=== PATIENT | female | born 1945 | race Caucasian/White ===

== ENCOUNTER 2017-05-23 14:07 | Outpatient (CLI) | payer MEDICARE | END 2017-05-23 14:08 | disposition home or self-care (01) | LOC: BICMAMMO 14:07 | PROVIDERS: ATTEND Internal Medicine Hematology & Oncology | DX: Z12.31 Encounter for screening mammogram for malignant neoplasm of breast (principal); M81.0 Age-related osteoporosis without current pathological fracture; D50.9 Iron deficiency anemia, unspecified; N63.20 Unspecified lump in the left breast, unspecified quadrant; M85.80 Other specified disorders of bone density and structure, unspecified site; Z85.3 Personal history of malignant neoplasm of breast | CPT/HCPCS: 71046; 77063; 77067; 77080 ==

== ENCOUNTER 2017-09-08 19:58 | Emergency (ER) | payer MEDICARE ==
[2017-09-08 20:35] LABS: #Basophils 0.1 thou/uL (0.0-0.2); #Eosinphils 0.1 thou/uL (0.0-0.7); #Lymphocytes 1.9 thou/uL (1.20-3.40); #Monocytes 0.5 thou/uL (0.11-0.59); #Neutrophils 3.3 thou/uL (1.40-6.50); %Basophils 1.1 % (0.0-1.0); %Eosinophils 1.7 % (0.0-10.0); %Lymphocytes 32.2 % (21.0-51.0); %Monocytes 8.4 % (0.0-10.0); %Neutrophils 56.8 % (42.0-75.0); Hemoglobin 12.3 g/dL (12.0-16.0); Mean Corpuscular HGB CONC 33.8 g/dL (32.0-36.0); Mean Corpuscular Hemoglobin 31.4 pg (27.0-31.0); Mean Platelet Volume 6.9 fL (7.4-10.4); Platelet Count 212 thou/uL (130-400); Red Blood Cell (RBC) Count 3.91 mill/uL (4.20-5.40); White Blood Cell (WBC) Count 5.9 thou/uL (4.8-10.8)
[2017-09-08 20:55] LABS: ALT (SGPT) 10 U/L (8-55); AST (SGOT) 21 U/L (5-34); Albumin 3.8 g/dL (3.4-4.8); Alkaline Phosphatase 60 U/L (40-150); Anion Gap 14 mmol/L (10-20); BUN (Urea Nitrogen) 19 mg/dL (9.8-20.1); Bilirubin, Total 0.3 mg/dL (0.2-1.2); Calc. Creatinine Clearance 0 mL/min (70-130); Calcium 8.9 mg/dL (7.8-10.44); Carbon Dioxide 26 mmol/L (23-31); Chloride 103 mmol/L (98-107); Estimated GFR-MDRD 62; Globulin 2.7 g/dL (2.4-3.5); Glucose 110 mg/dL (83-110); Protein, Total 6.5 g/dL (6.0-8.3); Sodium 139 mmol/L (136-145)
[2017-09-08 21:00] LABS: CKMB 1.1 ng/mL (0-6.6); Troponin I Less than 0.010 ng/mL (< 0.028)
== END 2017-09-08 22:32 | disposition home or self-care (01) ==
LOC: ERS 19:58
DX: R00.0 Tachycardia, unspecified (principal); D64.9 Anemia, unspecified; I50.9 Heart failure, unspecified; I25.2 Old myocardial infarction; Z85.3 Personal history of malignant neoplasm of breast; Z86.73 Personal history of transient ischemic attack (TIA), and cerebral infarction without residual deficits; Z79.899 Other long term (current) drug therapy; Z79.82 Long term (current) use of aspirin
CPT/HCPCS: 36415; 80053; 82553; 84484; 85025; 93005

== ENCOUNTER 2018-04-13 22:15 | Inpatient (IN) | payer MEDICARE ==
[2018-04-13 22:57] LABS: #Basophils 0.1 thou/uL (0.0-0.2); #Eosinphils 0.2 thou/uL (0.0-0.7); #Lymphocytes 1.6 thou/uL (1.20-3.40); #Monocytes 0.5 thou/uL (0.11-0.59); #Neutrophils 3.3 thou/uL (1.40-6.50); %Basophils 1.3 % (0.0-1.0); %Eosinophils 3.4 % (0.0-10.0); %Lymphocytes 28.7 % (21.0-51.0); %Neutrophils 57.6 % (42.0-75.0); Hemoglobin 12.1 g/dL (12.0-16.0); Mean Corpuscular HGB CONC 33.5 g/dL (32.0-36.0); Mean Corpuscular Hemoglobin 31.3 pg (27.0-31.0); Mean Corpuscular Volume 93.5 fL (78.0-98.0); Mean Platelet Volume 7.3 fL (7.4-10.4); Platelet Count 247 thou/uL (130-400); RBC Distribution Width 12.1 % (11.5-14.5); Red Blood Cell (RBC) Count 3.85 mill/uL (4.20-5.40); White Blood Cell (WBC) Count 5.6 thou/uL (4.8-10.8)
[2018-04-13 23:20] LABS: ALT (SGPT) 23 U/L (8-55); AST (SGOT) 39 U/L (5-34); Albumin 3.6 g/dL (3.4-4.8); Alkaline Phosphatase 64 U/L (40-150); Anion Gap 15 mmol/L (10-20); BUN (Urea Nitrogen) 12 mg/dL (9.8-20.1); Bilirubin, Total 0.3 mg/dL (0.2-1.2); Calc. Creatinine Clearance 0 mL/min (70-130); Calcium 8.9 mg/dL (7.8-10.44); Carbon Dioxide 25 mmol/L (23-31); Chloride 103 mmol/L (98-107); Estimated GFR-MDRD 65; Globulin 2.7 g/dL (2.4-3.5); Glucose 144 mg/dL (83-110); Potassium 4.3 mmol/L (3.5-5.1); Protein, Total 6.3 g/dL (6.0-8.3); Sodium 139 mmol/L (136-145)
--- NOTE | 2018-04-13 23:29 | RAD ---
CHEST ONE VIEW PORTABLE 04/13/18 HISTORY: 72-year-old female with history of chest pain. COMPARISON: 05/23/17. FINDINGS: Surgical clips in the right axilla region. Heart size is within normal limits. The lungs are clear. M ild biapical pleural thickening. Mild hyperinflation. IMPRESSION: No acute intrathoracic disease. Mild hyperinflation and biapical pleural thickening. No acute process . POS: [facility]
[2018-04-14 02:27] LABS: Troponin I Less than 0.010 ng/mL (< 0.028)
[2018-04-14] MEDS ORDERED: Nitroglycerin 0.4 MG TAB (25 Tab Bottle) PO PRN (03:13)
[2018-04-14] MEDS ORDERED: Acetaminophen 325 MG TAB PO PRN (03:13)
[2018-04-14] MEDS ORDERED: Zolpidem Tartrate 5 MG TAB PO PRN (03:13)
[2018-04-14 04:43] LABS: #Basophils 0.1 thou/uL (0.0-0.2); #Eosinphils 0.2 thou/uL (0.0-0.7); #Lymphocytes 1.3 thou/uL (1.20-3.40); #Monocytes 0.4 thou/uL (0.11-0.59); #Neutrophils 2.3 thou/uL (1.40-6.50); %Basophils 1.5 % (0.0-1.0); %Eosinophils 3.7 % (0.0-10.0); %Lymphocytes 30.4 % (21.0-51.0); %Neutrophils 54.3 % (42.0-75.0); Mean Corpuscular HGB CONC 33.9 g/dL (32.0-36.0); Mean Corpuscular Hemoglobin 31.5 pg (27.0-31.0); Mean Corpuscular Volume 92.9 fL (78.0-98.0); Mean Platelet Volume 7.4 fL (7.4-10.4); Platelet Count 218 thou/uL (130-400); RBC Distribution Width 11.9 % (11.5-14.5); White Blood Cell (WBC) Count 4.2 thou/uL (4.8-10.8)
[2018-04-14 05:05] LABS: Troponin I 0.015 ng/mL (< 0.028)
[2018-04-14 05:09] LABS: Anion Gap 11 mmol/L (10-20); BUN (Urea Nitrogen) 11 mg/dL (9.8-20.1); Calc. Creatinine Clearance 0 mL/min (70-130); Calcium 8.6 mg/dL (7.8-10.44); Carbon Dioxide 28 mmol/L (23-31); Cardiac Risk 3.3 (Less than 4.5); Chloride 104 mmol/L (98-107); Cholesterol 179 mg/dl (< 200 Desired); Estimated GFR-MDRD 76; Glucose 96 mg/dL (83-110); HDL Cholesterol 54 mg/dL (>60 Neg Risk); LDL Cholesterol, Calculated 113 mg/dL; Potassium 3.6 mmol/L (3.5-5.1); Sodium 139 mmol/L (136-145); Triglycerides 61 mg/dL (Less than 150)
[2018-04-14] MEDS ORDERED: Enoxaparin Sodium 40 MG/0.4 ML SYRINGE ONE (07:55)
[2018-04-14] MEDS ORDERED: Famotidine 20 MG TAB ONE (07:55)
[2018-04-14] MEDS ORDERED: Aspirin Chewable 81 MG TAB ONE (07:55)
[2018-04-14] MEDS ORDERED: Nitroglycerin 2% Ointment 1 INCH/1 GM Packet ONE (07:55)
--- NOTE | 2018-04-14 09:03 | CT ---
PRELIMINARY REPORT/[facility]/EMERGENTY AFTER-HOURS PROCEDURE CT Head Without Contrast EXAM DATE/TIME: 04/14/2018 12:10 AM CLINICAL HISTORY: 72 years old, female; Signs and symptoms; Dizziness; Patient HX: Er 21; F72 with HX of multiple mis w ith the last one in 2017 and cvax2 presents to ed via ems with C/O acute onset chest pressure at 18:1 5 while sitting down associated with dizziness and loss of balance. PT notes that she got in the shower and began to feel lightheaded which PT states has been constant here in ed. PT also reports in termittent blurry vision which has since resolved. TECHNIQUE: Axial computed tomography images of the head/brain without contrast. COMPARISON: No relevant prior studies available. FINDINGS: Brain: Volume loss and chronic small vessel ischemic change. No brain edema. No intracranial hemorrha ge. Ventricles: Normal. No ventriculomegaly. Bones/joints: Normal. No acute fracture. Sinuses: Normal as visualized. No acute sinusitis. Mastoid air cells: Normal as visualized. No mastoid effusion. Soft tissues: Normal. IMPRESSION: No acute brain findings. Thank you for allowing us to participate in the care of your patient. Dictated and Authenticated by: Luc Emery MD 04/14/2018 12:17 AM Central Time ([place] & [place]) FINAL REPORT HEAD CT WITHOUT CONTRAST: DATE: 04/14/2018. COMPARISON: 01/21/2016. HISTORY: Lightheaded, blurred vision. FINDINGS: I agree with the preliminary [facility] report dictated by Dr. Luc Emery. The imaged paranasal sinu ses and mastoid air cells appear well aerated. There is atherosclerotic calcification of the [place] carotid arteries. There is no displaced calvarial fracture. There is periventricular and deep wh ite matter hypodensity, evidence of small-vessel disease. No intracranial hemorrhage, midline shift, or mass effect. IMPRESSION: Chronic findings as detailed above. POS: [facility]
[2018-04-14] MEDS: Carvedilol 25 MG TAB PO SCH ×2 (09:24→21:03)
[2018-04-14] MEDS: Aspirin Chewable 81 MG TAB PO SCH (09:24)
[2018-04-14] MEDS: Famotidine 20 MG TAB PO SCH ×2 (09:25→20:59)
[2018-04-14] MEDS: Enoxaparin Sodium 40 MG/0.4 ML SYRINGE SC SCH (09:26)
[2018-04-14] MEDS: Nitroglycerin 2% Ointment 1 INCH/1 GM Packet TOP SCH ×3 (09:26→21:06)
[2018-04-14] MEDS: Furosemide 20 MG TAB PO SCH (09:26)
[2018-04-14] MEDS: Famotidine/PF 20 mg/2ml Vial SLOW IVP SCH ×2 (14:30→21:04)
[2018-04-14] MEDS: Sodium Chloride 0.9% 1,000 ML IV SCH ×2 (14:31→23:17)
--- NOTE | 2018-04-14 17:56 | PDOC.PN ---
- Subjective Encounter Start Date: 04/14/18 Encounter Start Time: 17:53 Patient lying in bed with granddaughter at bedside. She denies chest pain, but reports some mild shortness of breath with activity. Reports a syncopal episode at home. CT showing chronic changes. Cardiology following, await echo. - Objective Resuscitation Status - Order Detail: 04/14/18 03:13 Resuscitation Status Routine Resuscitation Status: FULL: Full Resuscitation MAR Reviewed: Yes Vital Signs & Weight: Vital Signs (12 hours) Temp Pulse Resp BP Pulse Ox 04/14/18 14:10 97.9 F 73 16 138/63 100 Weight Weight 122 lb 1.6 oz Result Diagrams: 04/14/18 04:26 04/14/18 04:26 Radiology Reviewed by me: Yes Phys Exam - Physical Examination Constitutional: NAD HEENT: PERRLA, moist MMs, oral pharynx no lesions Neck: no nodes, no JVD, supple Respiratory: no wheezing, no rales, no rhonchi, clear to auscultation bilateral Cardiovascular: RRR, no rub Gastrointestinal: soft, non-tender, positive bowel sounds Musculoskeletal: no edema, pulses present Neurological: non-focal, normal sensation, moves all 4 limbs Lymphatic: no nodes Psychiatric: normal affect, A&O x 3 Skin: no rash, normal turgor, cap refill <2 seconds Dx/Plan (1) Heart palpitations Code(s): R00.2 - PALPITATIONS Status: Acute (2) Dizziness Code(s): R42 - DIZZINESS AND GIDDINESS Status: Acute (3) CAD (coronary artery disease) Code(s): I25.10 - ATHSCL HEART DISEASE OF [place] CORONARY ARTERY W/O ANG PCTRS Status: Chronic Comment: stable, followed by Dr. Ashton (4) CHF (congestive heart failure) Code(s): I50.9 - HEART FAILURE, UNSPECIFIED Status: Chronic Comment: stable , followed by Dr. Ashton - Plan cont current plan of care, plan discussed w/ family, DVT proph w/heparin * Cardiology consulted * Await echo * Continue current medical management * Monitor vitals and labs closely * Further medical management pending cardiology recommendations
[2018-04-14] MEDS: Lisinopril 10 MG TAB PO SCH (20:59)
--- NOTE | 2018-04-14 23:08 | HP ---
CHIEF COMPLAINT: Chest pain. HISTORY OF PRESENT ILLNESS: This is a 72-year-old female with past medical history of multiple MIs in the past, last one in 2017; CVA x2; stage IV breast cancer, status post 18 rounds of chemo with the last chemo causing the patient to go into MT. Per patient, around 6:30 p.m. she felt her heart racing, she felt some chest pressure, and she got up to go to the bathroom, felt very lightheaded and the patient felt her balance being off on the way to bathroom. The patient stated that she felt very uncomfortable and at the time, the patient checked her blood pressure which shows systolic of 180 that really made the patient worried and this prompted the patient to come to the ED to be further evaluated and treated. She lives alone in an RV which belongs to the son. The patient stated that she has been through a lot in that her daughter , daughter had diabetes mellitus type 1, and she has not been able to fully get over it because she really loved her so much. The patient stated that she has a lot of stress and there is a lot that has gone on with her and she feels like she is just breaking down. The patient stated that she has stage IV breast cancer, which she was given only three months to live; however, she has been fighting and she is still alive. The patient stated that she was seen at [facility] for chemotherapy and eventually she went to [place], and Dr. Cordoba is the doctor who actually continued the chemo from there. The patient states that her hims clerk is Dr. Ashton, who knows her very well. At this point, the patient endorses having intermittent blurry vision, dizziness, chest pain, lower extremity weakness. Otherwise, the patient denies any fever, nausea, vomiting, abdominal pain, dysuria, hematuria, hematochezia, melena, or cough. REVIEW OF SYSTEMS: Positive for blurry vision, weakness, chest pain, dizziness, otherwise as documented in the HPI. All systems have been reviewed and are negative. PAST MEDICAL HISTORY: Stage IV breast cancer, anemia, CHF, MT x1, stroke x3. FAMILY HISTORY: Reviewed and noncontributory to this visit at this time. PAST SURGICAL HISTORY: Right mastectomy, right cataract surgery, MediPort, appendectomy, hysterectomy, tonsillectomy. PSYCHIATRIC HISTORY: No previous psych history. SOCIAL HISTORY: The patient denies alcohol use, denies any illicit drug use or any smoking history. ALLERGIES: THE PATIENT IS ALLERGIC TO ADHESIVES, DEMEROL, ERYTHROMYCIN, IODINE, NICOTINE, PERCODAN, SULFA, VANCOMYCIN, AND DYES. CURRENT MEDICATIONS: The patient takes: 1. Coreg 37.5 b.i.d. 2. Lasix 20 daily. 3. Lisinopril 10 mg daily. 4. Baby aspirin 81 mg daily. PHYSICAL EXAMINATION: VITAL SIGNS: The patient's blood pressure is 137/60, pulse of 93, respiratory rate of 18, temperature is 98.1, oxygen saturation of 100. GENERAL: The patient is a talkative, sitting in bed, not in apparent distress. HEENT: Normocephalic and atraumatic. Pupils are equally round and reactive to light. Extraocular movements are intact. No scleral icterus. Mucous membranes are moist. NECK: Trachea is midline. Full range of motion. No JVD. LUNGS: Clear to auscultation bilaterally. No wheezing, no rales, no rhonchi appreciated. CARDIAC: Positive S1 and S2. Regular rate and rhythm. No murmurs, no gallops, no rubs appreciated. ABDOMEN: Soft, nontender, and nondistended. No palpable masses appreciated. No peritoneal signs. EXTREMITIES: 5/5 upper extremity strength. Good pulses bilaterally in the upper extremity. Lower extremity, no edema noted. 5/5 lower extremity strength. NEURO: Cranial nerves 2 through 12 grossly intact. No neurologic deficits noted. SKIN: Warm, dry, and intact. PSYCH: Normal affect, alert and oriented x3. DIAGNOSTIC STUDIES: EKG shows normal sinus rhythm with a rate of 89, premature atrial complexes appreciated. There is aberrant conduction noted. CT of the head shows paranasal sinuses and mastoid air cells which appear well aerated. There is atherosclerotic calcification of the cavernous carotid arteries. There is no displaced calvarial fracture. There is a preventricular and deep white matter hypodensities. Evidence of small-vessel disease. No intracranial hemorrhage, midline shift, or mass effect. Chest x-ray showed no acute intrathoracic disease. LABORATORY DATA: WBC is 5.6, hemoglobin is 12.1, hematocrit is 36.0, MCV is 93.5, and platelet count is 247. Sodium is 139, potassium is 4.3, chloride is 103, carbon dioxide of 25, anion gap of 15, BUN is 12, creatinine is 0.85, glucose is 144. AST is 39, and ALT is 23. Troponin is 0.016 x3 negative. ASSESSMENT AND PLAN: This is a 72-year-old female, being admitted for: 1. Chest pain, rule out acute coronary syndrome. At this point, we have trended troponins which has been negative x3. The patient states that her hims clerk is Dr. Ashton. At this point, we are going to consult Cardiology. Hopefully, we can get Dr. Ashton to see the patient and to further examine the patient. We will continue to monitor the patient closely at this time, we will continue the patient on home medications. 2. History of breast cancer. At this point, stable. We will continue to monitor the patient. 3. History of anemia. At this time, stable. We will continue to monitor the patient. 4. Congestive heart failure, currently not in any acute exacerbation. We will monitor the patient. We will continue the patient on home medications. 5. Coronary artery disease. We will continue the patient on home medications. 6. History of stroke. At this point, stable. We will continue to monitor the patient and treat the patient on her home medications. 7. Deep venous thrombosis and gastrointestinal prophylaxis addressed. Job ID: [id number]
[2018-04-15] MEDS: Nitroglycerin 2% Ointment 1 INCH/1 GM Packet TOP SCH ×3 (05:23→20:11)
[2018-04-15] MEDS: Enoxaparin Sodium 40 MG/0.4 ML SYRINGE SC SCH ×2 (09:18→09:54)
[2018-04-15] MEDS: Furosemide 20 MG TAB PO SCH (09:18)
[2018-04-15] MEDS: Aspirin Chewable 81 MG TAB PO SCH (09:18)
[2018-04-15] MEDS: Famotidine 20 MG TAB PO SCH ×2 (09:18→20:31)
[2018-04-15] MEDS: Famotidine/PF 20 mg/2ml Vial SLOW IVP SCH ×2 (09:19→20:30)
[2018-04-15] MEDS: Carvedilol 25 MG TAB PO SCH ×2 (09:27→20:29)
[2018-04-15] MEDS: diphenhydrAMINE 50 MG CAP PO SCH ×2 (12:24→17:40)
[2018-04-15] MEDS: predniSONE 20 MG TAB PO SCH ×2 (12:24→17:40)
[2018-04-15] MEDS ORDERED: Communication Order-Pharmacy FS SCH (13:00)
--- NOTE | 2018-04-15 13:41 | CON ---
DATE OF CONSULTATION: HISTORY OF PRESENT ILLNESS: Angie Shaffer is a 72-year-old white female admitted with chest discomfort. She has a very complicated long history having had breast cancer diagnosed in 2003, followed by mastectomy in April 2004 and prolonged chemotherapy. She also states that she had chest pain during a chemotherapy infusion. She states that she had a "heart attack". However, it seems that if she never has undergone cardiac catheterization. Adriamycin was part of the treatment. Since then, she has had mild left ventricular dysfunction on echocardiograms. She has had negative chemical stress test in the past. In 2006, she had a right- sided stroke. She follows up with Dr. Ashton regularly. Last ejection fraction was 40% to 45% in September 2017. She was last seen by Dr. Ashton in January 2018 and she continued complaining of exertional dyspnea after walking approximately 2 blocks , which she has for the last 3 or 4 years. She also has been documented to have nonsustained ventricular tachycardia in the past. She then had an episode on the evening of April 13. At 6:30 p.m., she was going to take a shower and began to notice that she was feeling weak. She then became so weak that she states she fell to the ground, but apparently did not lose consciousness. She felt her heart beating forcefully and rapidly at that time. She took her blood pressure, it was 180/120 with a pulse in the 120s. She called the EMS. She also had chest pressure with this, but cannot tell me if the chest pressure started prior to noticing the rapid heartbeat. She then was given aspirin and sublingual nitroglycerin by Paramedics, and her symptoms improved. From looking through the emergency room record, it does not appear that she had any significant arrhythmias when the paramedics arrived. Cardiac enzymes have been unremarkable. PAST MEDICAL HISTORY: Stage IV breast cancer, anemia, congestive heart failure , 2 strokes, 2 myocardial infarctions, although she apparently has never undergone cardiac catheterization, hypertension, and probable hypercholesterolemia with LDL 113 at this time. HOME MEDICATIONS: 1. Carvedilol 25 mg q.p.m. and 12.5 mg q.a.m. 2. Aspirin 81 daily. 3. Furosemide 20 mg q.a.m. 4. Lisinopril 2.5 mg daily. 5. Potassium chloride 10 mEq daily. ALLERGIES: ADHESIVE TAPE, ERYTHROMYCIN, NICOTINE, DEMEROL, PERCODAN, SULFA, VANCOMYCIN. ALSO, WHEN GIVEN IODINE DYE IN THE 70S, SHE DEVELOPED ANAPHYLAXIS AND FACIAL EDEMA. SOCIAL HISTORY: She does not smoke or drink. PAST SURGICAL HISTORY: Right mastectomy, appendectomy, hysterectomy, tonsillectomy, and right eye cataract. FAMILY HISTORY: Father had coronary artery disease and declined bypass surgery. REVIEW OF SYSTEMS: A 12-point review of systems is otherwise unremarkable. PHYSICAL EXAMINATION: VITAL SIGNS: Blood pressure 122/58 and pulse of 73. HEENT: PERRL. NECK: Supple. CHEST: Clear. CARDIAC: S1 and S2 normal without any S3, S4, or murmurs. Carotid upstrokes normal without bruits. ABDOMEN: Normal bowel sounds without tenderness or organomegaly. EXTREMITIES: Revealed no clubbing, cyanosis, or edema. NEUROLOGIC: Grossly intact. SKIN: Warm and dry. LABORATORY DATA: EKG revealed normal sinus rhythm with old septal infarction, left axis deviation. She has had a 6-beat run of nonsustained ventricular tachycardia with a rate of 110 to 120. Echocardiogram revealed ejection fraction of 40% to 45% with moderate mitral regurgitation, moderate aortic regurgitation, and mild tricuspid regurgitation. Hemoglobin 11.0, hematocrit 32.5, white count 4200, platelets 218,000. Sodium 139, potassium 3.6, chloride 104, carbon dioxide 28, BUN 11, creatinine 0.75. Cholesterol 179, triglyceride 61, HDL 54, and LDL 113. Cardiac enzymes have been normal. IMPRESSION: 1. Chest discomfort associated with palpitations and weakness. It is unclear if she had a true arrhythmia. Apparently, Paramedics did not see any when they arrive and she states she was still having her symptoms. Apparently, this could represent a prolonged episode of angina. 2. Previous myocardial infarctions x2, although, she has never undergone cardiac catheterization. 3. Left ventricular dysfunction with ejection fraction 45% to 50% in the past and now 40% to 45%. 4. Nonsustained ventricular tachycardia. 5. Hypertension. 6. Hyperlipidemia. 7. Positive family history. 8. History of breast cancer, stage IV. 9. Dye allergy. RECOMMENDATIONS: With Ms. Shaffer's current symptoms, nonsustained ventricular tachycardia and history of prior myocardial infarctions, overall it is recommended she undergo cardiac catheterization. Risks of this were discussed including , myocardial infarction, dye reaction, vascular injury, CVA, limb loss, renal loss , etc. She will be premedicated with prednisone 20 mg q.6 hours and Benadryl 50 mg q.6 hours. She already is on Pepcid. We discussed risk of stenting- myocardial infarction, emergent CABG restenosis, stent thrombosis, vessel perforation etc. She has never had any gastrointestinal bleeding. She has never had hemorrhagic stroke. She does not have any upcoming surgeries. Overall, it is recommended that a drug-eluting stent will be placed if required. Job ID: [id number] [facility] CLINICJonelle
--- NOTE | 2018-04-15 14:24 | PDOC.PN ---
- Subjective Encounter Start Date: 04/15/18 Encounter Start Time: 14:22 Patient lying in bed, She denies chest pain, shortness of breath but does reports mild dizziness that is improved. Echo reviewed EF 40-45%, Cardiology recommended heart cath, risks reviewed with patient. - Objective Resuscitation Status - Order Detail: 04/14/18 03:13 Resuscitation Status Routine Resuscitation Status: FULL: Full Resuscitation MAR Reviewed: Yes Vital Signs & Weight: Vital Signs (12 hours) Temp Pulse Resp BP Pulse Ox 04/15/18 12:08 97.2 F L 80 20 142/68 H 97 04/15/18 08:12 97.7 F 73 16 122/58 L 98 04/15/18 03:10 97.7 F 83 18 119/57 L 97 04/15/18 02:35 96 Weight Weight 122 lb 9.6 oz I&O: 04/14/18 04/15/18 04/16/18 06:59 06:59 06:59 Intake Total 600 Balance 600 Result Diagrams: 04/14/18 04:26 04/14/18 04:26 Radiology Reviewed by me: Yes Phys Exam - Physical Examination Constitutional: NAD HEENT: PERRLA, oral pharynx no lesions Neck: no nodes, no JVD, full ROM Respiratory: no wheezing, no rales, no rhonchi, clear to auscultation bilateral Cardiovascular: RRR, no significant murmur, no rub Gastrointestinal: soft, non-tender, no distention, positive bowel sounds Musculoskeletal: no edema, pulses present Neurological: non-focal, normal sensation, moves all 4 limbs Lymphatic: no nodes Psychiatric: normal affect, A&O x 3 Skin: no rash, normal turgor, cap refill <2 seconds Dx/Plan (1) Heart palpitations Code(s): R00.2 - PALPITATIONS Status: Acute (2) Dizziness Code(s): R42 - DIZZINESS AND GIDDINESS Status: Acute (3) CAD (coronary artery disease) Code(s): I25.10 - ATHSCL HEART DISEASE OF [place] CORONARY ARTERY W/O ANG PCTRS Status: Chronic Comment: stable, followed by Dr. Ashton (4) CHF (congestive heart failure) Code(s): I50.9 - HEART FAILURE, UNSPECIFIED Status: Chronic Comment: stable , followed by Dr. Ashton - Plan cont current plan of care * Continue medical management * Echo discussed with patient * Cardiology following, want to proceed with heart cath * Will monitor labs and vitals * Once stable from cardiology, likely discharged home
[2018-04-15] MEDS: Lisinopril 10 MG TAB PO SCH (20:30)
[2018-04-16] MEDS: Nitroglycerin 2% Ointment 1 INCH/1 GM Packet TOP SCH ×3 (00:44→20:42)
[2018-04-16] MEDS: diphenhydrAMINE 50 MG CAP PO SCH ×3 (00:45→11:57)
[2018-04-16] MEDS: predniSONE 20 MG TAB PO SCH ×3 (00:45→11:57)
[2018-04-16] MEDS: Carvedilol 25 MG TAB PO SCH ×2 (05:23→20:38)
[2018-04-16] MEDS: Sodium Chloride 0.9% 1,000 ML IV SCH ×2 (05:23→17:09)
[2018-04-16] MEDS: Aspirin Chewable 81 MG TAB PO SCH (05:23)
[2018-04-16] MEDS: Famotidine 20 MG TAB PO SCH ×2 (05:24→20:38)
[2018-04-16] MEDS: Famotidine/PF 20 mg/2ml Vial SLOW IVP SCH (05:24)
[2018-04-16] MEDS: Furosemide 20 MG TAB PO SCH (09:31)
[2018-04-16] MEDS ORDERED: Iopamidol 370 76% 100 ML VIAL ONE (09:59)
--- NOTE | 2018-04-16 13:25 | PDOC.PN ---
- Subjective Encounter Start Date: 04/16/18 Encounter Start Time: 13:24 Subjective: Patient without complaints. Emmotional when speaking about her health. -: Hx of breast cancer, of cancer. Lost her daughter in 2013. -: Resting comfortably. Asymptomatic. No chest pain, sob. No dizziness. - Objective Resuscitation Status - Order Detail: 04/14/18 03:13 Resuscitation Status Routine Resuscitation Status: FULL: Full Resuscitation Vital Signs & Weight: Vital Signs (12 hours) Temp Pulse Resp BP BP Pulse Ox 04/16/18 11:29 98.1 F 73 18 117/52 L 98 04/16/18 07:55 98.3 F 73 16 125/60 99 04/16/18 05:00 97.9 F 76 18 119/56 L 98 Weight Weight 122 lb 9.6 oz I&O: 04/15/18 04/16/18 04/17/18 06:59 06:59 06:59 Intake Total 600 860 30 Balance 600 860 30 Result Diagrams: 04/14/18 04:26 04/14/18 04:26 Phys Exam - Physical Examination Constitutional: NAD HEENT: PERRLA, moist MMs Neck: no nodes, full ROM Respiratory: no wheezing, no rales, no rhonchi, clear to auscultation bilateral Cardiovascular: RRR Gastrointestinal: soft, non-tender, no distention, positive bowel sounds Musculoskeletal: no edema Neurological: non-focal, normal sensation, moves all 4 limbs Psychiatric: normal affect, A&O x 3 Skin: no rash Dx/Plan - Plan cont current plan of care Continue plan as per Dr. Biswas. -: Patient for cath w/stents this afternoon. * .
[2018-04-16] MEDS ORDERED: Heparin 10,000 UNITS/1 ML VIAL ONE (14:33)
[2018-04-16 14:39] LABS: #Lymphocytes 0.7 thou/uL (1.20-3.40); #Monocytes 0.4 thou/uL (0.11-0.59); #Neutrophils 12.2 thou/uL (1.40-6.50); %Eosinophils 0.1 % (0.0-10.0); %Lymphocytes 4.9 % (21.0-51.0); %Monocytes 2.8 % (0.0-10.0); %Neutrophils 92.2 % (42.0-75.0); Hemoglobin 12.3 g/dL (12.0-16.0); Mean Corpuscular HGB CONC 33.1 g/dL (32.0-36.0); Mean Corpuscular Hemoglobin 30.5 pg (27.0-31.0); Mean Corpuscular Volume 92.3 fL (78.0-98.0); Mean Platelet Volume 7.7 fL (7.4-10.4); Platelet Count 243 thou/uL (130-400); Red Blood Cell (RBC) Count 4.02 mill/uL (4.20-5.40); White Blood Cell (WBC) Count 13.2 thou/uL (4.8-10.8)
[2018-04-16 14:58] LABS: Anion Gap 14 mmol/L (10-20); BUN (Urea Nitrogen) 13 mg/dL (9.8-20.1); Calc. Creatinine Clearance 53 mL/min (70-130); Carbon Dioxide 25 mmol/L (23-31); Chloride 106 mmol/L (98-107); Estimated GFR-MDRD 68; Glucose 128 mg/dL (83-110); Potassium 3.6 mmol/L (3.5-5.1); Sodium 141 mmol/L (136-145)
[2018-04-16] MEDS ORDERED: Midazolam HCl 2 mg/2 ml Vial ONE (15:30)
[2018-04-16] MEDS ORDERED: Fentanyl 100 MCG/2 ML VIAL ONE (15:30)
[2018-04-16] MEDS ORDERED: traMADol HCl 50 MG TAB PO PRN (16:35)
[2018-04-16] MEDS ORDERED: Nitroglycerin 0.4 MG TAB (25 Tab Bottle) SL PRN (16:35)
[2018-04-16] MEDS ORDERED: Acetaminophen/Codeine 30-300mg Tablet PO PRN ×2 (16:35)
[2018-04-16] MEDS ORDERED: Sodium Chloride 0.9% 1,000 ML IV SCH (16:36)
[2018-04-16] MEDS ORDERED: Sodium Chloride 0.9% 200 ML IV PRN (17:30)
[2018-04-16] MEDS: Lisinopril 2.5 MG TAB PO SCH (20:38)
--- NOTE | 2018-04-17 00:47 | CON ---
DATE OF CONSULTATION: HISTORY OF PRESENT ILLNESS: This is a 72-year-old lady who felt weak all over and like she was about to pass out and sat down on the ground. She had been complaining of some chest pressure as well. Subsequent to admission, she was noted to have a 6-beat run of ventricular tachycardia. Her cardiac enzymes on this admission were all negative. 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 This occurred about 2003. She received no radiation therapy. She has been free of disease subsequently. She does have hypertension for which she takes medications at home. SOCIAL HISTORY: She has never been a smoker. She lives in a travel trailer on her son's property. She is not very active. MEDICATIONS: Include: 1. Coreg 25 q.p.m., 12.5 q.a.m. 2. Aspirin 81. 3. Lasix 20 q.a.m. 4. Lisinopril 2.5 a day. 5. KCl 10 mEq a day. ALLERGIES: MULTIPLE AND DELINEATED IN HER HISTORY AND PHYSICAL. PAST SURGICAL HISTORY: 1. Right mastectomy. 2. Appendectomy. 3. Hysterectomy. 4. Tonsillectomy. 5. Cataract surgery. PHYSICAL EXAMINATION: GENERAL: Alert, cooperative lady, 122 pounds, height 5 feet 4 inches. NECK: No carotid bruits. LUNGS: Clear to auscultation. CARDIAC: Regular rate and rhythm and I appreciate no murmurs. ABDOMEN: Soft, nontender, without masses or bruits. EXTREMITIES: She has no palpable pedal pulses with slight bluish discoloration of her toes, but does have femoral and popliteal pulses. I have gone over the situation with the patient after reviewing her cardiac catheterization, which showed 50-70% distal left main disease and normal right coronary artery. She has two potential left-sided targets for grafting. I have gone over the option of surgical intervention as well as medical therapy. After much discussion, she will consider her options, but is leaning toward surgical intervention. Due to the schedule being full, tomorrow is not an option and possibly the day following her coronary grafting could be done. Job ID: [id number]
[2018-04-17] MEDS: Nitroglycerin 2% Ointment 1 INCH/1 GM Packet TOP SCH ×3 (05:39→20:33)
[2018-04-17 05:44] LABS: #Lymphocytes 1.4 thou/uL (1.20-3.40); #Monocytes 0.7 thou/uL (0.11-0.59); #Neutrophils 9.6 thou/uL (1.40-6.50); %Basophils 0.1 % (0.0-1.0); %Lymphocytes 11.6 % (21.0-51.0); %Monocytes 6.2 % (0.0-10.0); Hemoglobin 11.2 g/dL (12.0-16.0); Mean Corpuscular HGB CONC 33.9 g/dL (32.0-36.0); Mean Corpuscular Hemoglobin 31.7 pg (27.0-31.0); Mean Corpuscular Volume 93.6 fL (78.0-98.0); Mean Platelet Volume 7.5 fL (7.4-10.4); Platelet Count 230 thou/uL (130-400); RBC Distribution Width 12.4 % (11.5-14.5); Red Blood Cell (RBC) Count 3.52 mill/uL (4.20-5.40); White Blood Cell (WBC) Count 11.7 thou/uL (4.8-10.8)
[2018-04-17 06:06] LABS: Anion Gap 9 mmol/L (10-20); BUN (Urea Nitrogen) 14 mg/dL (9.8-20.1); Calc. Creatinine Clearance 57 mL/min (70-130); Calcium 8.1 mg/dL (7.8-10.44); Carbon Dioxide 28 mmol/L (23-31); Chloride 109 mmol/L (98-107); Estimated GFR-MDRD 73; Glucose 91 mg/dL (83-110); Potassium 3.5 mmol/L (3.5-5.1); Sodium 142 mmol/L (136-145)
[2018-04-17] MEDS: Aspirin Chewable 81 MG TAB PO SCH (10:20)
[2018-04-17] MEDS: Furosemide 20 MG TAB PO SCH (10:20)
[2018-04-17] MEDS: Famotidine 20 MG TAB PO SCH ×2 (10:20→20:32)
[2018-04-17] MEDS: Carvedilol 25 MG TAB PO SCH ×2 (10:21→20:32)
--- NOTE | 2018-04-17 14:38 | PDOC.PN ---
- Subjective Encounter Start Date: 04/17/18 Encounter Start Time: 13:15 Subjective: Patient without any complaints. Denies any chest pain or sob. No n/ v. -: Eating/drinking. No abdominal pain. -: Reports she is in great spirits and feeling strong. - Objective Resuscitation Status - Order Detail: 04/14/18 03:13 Resuscitation Status Routine Resuscitation Status: FULL: Full Resuscitation Vital Signs & Weight: Vital Signs (12 hours) Temp Pulse Resp BP BP Pulse Ox 04/17/18 11:38 97.6 F 79 18 133/60 98 04/17/18 07:39 99 F 78 18 129/61 100 04/17/18 04:35 97.8 F 79 16 129/61 97 Weight Weight 124 lb 3.2 oz I&O: 04/16/18 04/17/18 04/18/18 06:59 06:59 06:59 Intake Total 860 2457 Balance 860 2457 Result Diagrams: 04/17/18 05:29 04/17/18 05:29 Phys Exam - Physical Examination Constitutional: NAD HEENT: PERRLA, moist MMs, sclera anicteric, oral pharynx no lesions Neck: no JVD, supple, full ROM Respiratory: no wheezing, no rales, no rhonchi, clear to auscultation bilateral Cardiovascular: RRR, no significant murmur, no rub Gastrointestinal: soft, non-tender, no distention Musculoskeletal: no edema, pulses present Neurological: normal sensation, moves all 4 limbs Psychiatric: normal affect, A&O x 3 Skin: no rash Dx/Plan (1) CAD (coronary artery disease) Code(s): I25.10 - ATHSCL HEART DISEASE OF [place] CORONARY ARTERY W/O ANG PCTRS Status: Chronic Comment: stable, followed by Dr. Ashton (2) CHF (congestive heart failure) Code(s): I50.9 - HEART FAILURE, UNSPECIFIED Status: Chronic Comment: stable , followed by Dr. Ashton - Plan cont current plan of care Status post cath with Left main CAD. Advised CABG. -: Patient has decided to proceed with surgery, likely to be done tmrw. -: NPO after midnight -: Further management/disposition as per Cardiology team. -: Discussed with Dr. Arteaga who agrees with plan as above. * .
[2018-04-17] MEDS ORDERED: Communication Order-Pharmacy FS ONE (17:40)
[2018-04-17] MEDS: Lisinopril 2.5 MG TAB PO SCH (20:32)
[2018-04-18] MEDS: Nitroglycerin 2% Ointment 1 INCH/1 GM Packet TOP SCH (03:34)
[2018-04-18] MEDS: Carvedilol 25 MG TAB PO SCH (05:56)
[2018-04-18 06:11] LABS: #Eosinphils 0.1 thou/uL (0.0-0.7); #Lymphocytes 1.7 thou/uL (1.20-3.40); #Monocytes 0.5 thou/uL (0.11-0.59); #Neutrophils 3.3 thou/uL (1.40-6.50); %Basophils 0.9 % (0.0-1.0); %Eosinophils 1.2 % (0.0-10.0); %Lymphocytes 29.9 % (21.0-51.0); %Monocytes 9.3 % (0.0-10.0); %Neutrophils 58.7 % (42.0-75.0); Hemoglobin 11.2 g/dL (12.0-16.0); Mean Corpuscular HGB CONC 34.2 g/dL (32.0-36.0); Mean Corpuscular Volume 93.5 fL (78.0-98.0); Mean Platelet Volume 7.7 fL (7.4-10.4); Platelet Count 215 thou/uL (130-400); RBC Distribution Width 12.3 % (11.5-14.5); Red Blood Cell (RBC) Count 3.51 mill/uL (4.20-5.40); White Blood Cell (WBC) Count 5.7 thou/uL (4.8-10.8)
[2018-04-18] MEDS ORDERED: CEFAZOLIN 2 GM/50 ML BAG ONE (06:17)
[2018-04-18 06:38] LABS: Anion Gap 10 mmol/L (10-20); BUN (Urea Nitrogen) 18 mg/dL (9.8-20.1); Calc. Creatinine Clearance 56 mL/min (70-130); Calcium 8.4 mg/dL (7.8-10.44); Carbon Dioxide 28 mmol/L (23-31); Chloride 107 mmol/L (98-107); Estimated GFR-MDRD 74; Glucose 83 mg/dL (83-110); Potassium 3.4 mmol/L (3.5-5.1); Sodium 142 mmol/L (136-145)
[2018-04-18] MEDS ORDERED: Albumin 5% 500 ML ONE (06:44)
[2018-04-18] MEDS ORDERED: Midazolam HCl 5 mg/5 ml Vial ONE (06:52)
[2018-04-18] MEDS ORDERED: Fentanyl 250 MCG/5 ML VIAL ONE (06:52)
[2018-04-18] MEDS ORDERED: Heparin 10,000 UNITS/1 ML VIAL 30,000 UNITS in Sodium Chloride 0.9% 1,000 ML FS SCH (07:15)
[2018-04-18] MEDS ORDERED: Labetalol HCl 100 MG/20 ML VIAL ONE (10:56)
[2018-04-18] MEDS ORDERED: Fentanyl 100 MCG/2 ML VIAL ONE (11:01)
[2018-04-18] MEDS ORDERED: Fentanyl 100 MCG/2 ML VIAL SLOW IVP PRN (11:03)
[2018-04-18] MEDS ORDERED: DOPamine 400 MG/D5W 250 ML 250 ML IVPB PRN (11:03)
[2018-04-18] MEDS ORDERED: Acetaminophen 325 MG TAB PO PRN (11:03)
[2018-04-18] MEDS ORDERED: Norepinephrine 8 MG/0.9% NS 250 ML IVPB PRN (11:03)
[2018-04-18] MEDS ORDERED: hydrALAZINE 20 MG/ML VIAL SLOW IVP PRN (11:03)
[2018-04-18] MEDS ORDERED: Nitroglycerin 50 MG/250 ML BOT 250 ML IVPB PRN (11:03)
[2018-04-18] MEDS ORDERED: Magnesium 2 GM/50 ML 2 GM in Premix Bag 1 BAG IVPB SCH (11:03)
[2018-04-18] MEDS ORDERED: Mag-Al 1200 mg/1200 mg/30 ML UDCUP PO PRN (11:03)
[2018-04-18] MEDS ORDERED: Bisacodyl 5 MG TAB PO PRN (11:03)
[2018-04-18] MEDS ORDERED: Hetastarch 6% 500 ML 500 ML IVPB PRN (11:03)
[2018-04-18] MEDS ORDERED: Bisacodyl 10 MG SUPP PR PRN (11:03)
[2018-04-18] MEDS ORDERED: Post-Op Insulin Drip Protocol IVPB ONE (11:03)
[2018-04-18] MEDS ORDERED: Guaifenesin DM 100-10/5 ML UDCUP PO PRN (11:03)
[2018-04-18] MEDS ORDERED: HYDROcodone/Acetaminophen 5/325 mg Tablet PO PRN (11:03)
[2018-04-18 11:06] LABS: CO2 Tension 28.2 mmHg (35.0-45.0); Calcium, Ionized 1.02 mmol/L (1.12-1.30); Carboxyhemoglobin (COHb) 0.3 gm% (0.0-3.0); Hemoglobin (Hb) 10.7 g/dL (12.0-16.0); O2 Tension (PaO2) 233.2 mmHg (> 70.0); Potassium - ABG Lab 3.57 mmol/L (3.70-5.30); pH, Arterial 7.53 (7.35-7.45)
[2018-04-18] MEDS ORDERED: Nitroglycerin 50 MG/250 ML BOT 250 ML ONE (11:13)
[2018-04-18 11:17] LABS: #Eosinphils 0.1 thou/uL (0.0-0.7); #Monocytes 0.3 thou/uL (0.11-0.59); #Neutrophils 5.2 thou/uL (1.40-6.50); %Basophils 0.4 % (0.0-1.0); %Eosinophils 2.2 % (0.0-10.0); %Lymphocytes 15.1 % (21.0-51.0); %Monocytes 4.8 % (0.0-10.0); %Neutrophils 77.5 % (42.0-75.0); Hemoglobin 9.9 g/dL (12.0-16.0); Mean Corpuscular HGB CONC 33.5 g/dL (32.0-36.0); Mean Corpuscular Hemoglobin 30.8 pg (27.0-31.0); Mean Corpuscular Volume 91.8 fL (78.0-98.0); Mean Platelet Volume 7.6 fL (7.4-10.4); Platelet Count 161 thou/uL (130-400); RBC Distribution Width 12.9 % (11.5-14.5); Red Blood Cell (RBC) Count 3.22 mill/uL (4.20-5.40); White Blood Cell (WBC) Count 6.7 thou/uL (4.8-10.8)
--- NOTE | 2018-04-18 11:17 | PDOC.PN ---
- Subjective Encounter Start Date: 04/18/18 Encounter Start Time: 09:30 -: old records requested/rev Patient seen and examined. No overnight events - Objective Resuscitation Status - Order Detail: 04/14/18 03:13 Resuscitation Status Routine Resuscitation Status: FULL: Full Resuscitation MAR Reviewed: Yes Vital Signs & Weight: Vital Signs (12 hours) Temp Pulse Resp BP BP Pulse Ox 04/18/18 11:05 84 154/75 H 04/18/18 04:12 98.2 F 81 18 134/56 L 99 Weight Weight 120 lb 14.4 oz Most Recent Monitor Data Heart Rate from ECG 85 Respiration from ECG 16 SpO2 100 I&O: 04/17/18 04/18/18 04/19/18 06:59 06:59 06:59 Intake Total 2457 260 Output Total 300 Balance 2457 -40 Result Diagrams: 04/18/18 05:27 04/18/18 05:27 Additional Labs: Accuchecks 04/18/18 04/18/18 10:16 08:15 POC Glucose 99 104 EKG Reviewed by me: Yes (nsr) Phys Exam - Physical Examination Constitutional: NAD HEENT: PERRLA, moist MMs, sclera anicteric Neck: no JVD, supple Respiratory: no wheezing, no rales, no rhonchi Cardiovascular: RRR, no significant murmur, no rub Gastrointestinal: soft, non-tender, no distention, positive bowel sounds Musculoskeletal: no edema, pulses present Neurological: non-focal Lymphatic: no nodes Psychiatric: normal affect, A&O x 3 Skin: no rash, normal turgor Dx/Plan (1) S/P CABG (coronary artery bypass graft) Code(s): Z95.1 - PRESENCE OF AORTOCORONARY BYPASS GRAFT Status: Acute (2) Hypokalemia Code(s): E87.6 - HYPOKALEMIA Status: Acute (3) Moderate aortic regurgitation Code(s): I35.1 - NONRHEUMATIC AORTIC (VALVE) INSUFFICIENCY Status: Acute (4) Moderate mitral regurgitation Code(s): I34.0 - NONRHEUMATIC MITRAL (VALVE) INSUFFICIENCY Status: Acute (5) CAD (coronary artery disease) Code(s): I25.10 - ATHSCL HEART DISEASE OF [place] CORONARY ARTERY W/O ANG PCTRS Status: Chronic Comment: (6) Chronic systolic heart failure, ACC/AHA stage C Code(s): I50.22 - CHRONIC SYSTOLIC (CONGESTIVE) HEART FAILURE Status: Chronic (7) H/O malignant neoplasm of breast Code(s): Z85.3 - PERSONAL HISTORY OF MALIGNANT NEOPLASM OF BREAST Status: Chronic (8) Osteoporosis Code(s): M81.0 - AGE-RELATED OSTEOPOROSIS W/O CURRENT PATHOLOGICAL FRACTURE Status: Chronic - Plan cont current plan of care * continue post cabg protocol treatment as per cardiovascular surgery after surgery * medication reviewed as below * symptomatic treatment. Review of Systems - Review of Systems ENT: negative: Ear Pain, Ear Discharge, Nose Pain, Nose Discharge, Nose Congestion, Mouth Pain, Mouth Swelling, Throat Pain, Throat Swelling, Other Respiratory: negative: Cough, Dry, Shortness of Breath, Hemoptysis, SOB with Excertion, Pleuritic Pain, Sputum, Wheezing Cardiovascular: negative: chest pain, palpitations, orthopnea, paroxysmal nocturnal dyspnea, edema, light headedness, other Gastrointestinal: negative: Nausea, Vomiting, Abdominal Pain, Diarrhea, Constipation, Melena, Hematochezia, Other Genitourinary: negative: Dysuria, Frequency, Incontinence, Hematuria, Retention , Other Musculoskeletal: negative: Neck Pain, Shoulder Pain, Arm Pain, Back Pain, Hand Pain, Leg Pain, Foot Pain, Other Skin: negative: Rash, Lesions, Manoj, Bruising, Other - Medications/Allergies Allergies/Adverse Reactions: Allergies Allergy/AdvReac Type Severity Reaction Status Date / Time adhesive Allergy Verified 04/14/18 14:55 adhesive tape Allergy Verified 04/14/18 14:55 erythromycin base Allergy Verified 04/14/18 14:55 iodine Allergy Verified 04/14/18 14:55 nicotine Allergy Verified 04/14/18 14:55 DEMEROL Allergy Uncoded 04/14/18 14:55 PERCODAN Allergy Uncoded 04/14/18 14:55 SULFA Allergy Uncoded 04/14/18 14:55 VANCOMYCIN Allergy Uncoded 04/14/18 14:55 XRAY DYE Allergy Uncoded 04/14/18 14:55 Medications: Current Medications Acetaminophen (Tylenol) 650 mg PO Q6H PRN PRN Reason: Headache/Fever Or Mild Pain Hydrocodone Bitart/Acetaminophen ([place] 5/325) 1 tab PO Q4H PRN PRN Reason: Moderate Pain (4-6) Hydrocodone Bitart/Acetaminophen ([place] 5/325) 2 tab PO Q4H PRN PRN Reason: Severe Pain (7-10) Al Hydroxide/Mg Hydroxide (Maalox) 30 ml PO Q4H PRN PRN Reason: Indigestion Albumin Human (Albumin 5%) 12.5 gm IVPB Q6H PRN PRN Reason: To Maintain SBP> 90 mmHG Stop: 04/19/18 11:04 Albumin Human (Albumin 5%) 25 gm IVPB Q6H PRN PRN Reason: To Maintain SBP > 90 mmHG Stop: 04/19/18 11:04 Albuterol/Ipratropium (Duoneb) 3 ml NEB [id number] PRN PRN Reason: SHORTNESS OF BREATH Aspirin (Aspirin Chewable) 81 mg PO DAILY [facility] Bisacodyl (Dulcolax) 10 mg PO Q12H PRN PRN Reason: Constipation Bisacodyl (Dulcolax) 10 mg AR Q12H PRN PRN Reason: Constipation Cefazolin Sodium (Ancef) 2 gm SLOW IVP Q8H [facility] Stop: 04/19/18 03:04 Famotidine (Pepcid) 20 mg SLOW IVP Q12HR [facility] Fentanyl (Sublimaze) 25 mcg SLOW IVP Q2H PRN PRN Reason: Moderate Pain (4-6) Stop: 04/20/18 10:44 Guaifenesin/Dextromethorphan (Robitussin Dm) 15 ml PO Q4H PRN PRN Reason: Cough Hydralazine HCl (Apresoline) 10 mg SLOW IVP Q6H PRN PRN Reason: To Maintain SBP< 140mmHG Dopamine HCl/Dextrose (Dopamine/D5w) 250 mls @ 0 mls/hr IVPB PRN PRN; Protocol PRN Reason: To maintain SBP > 90 mmHG Hetastarch/Sodium Chloride (Hespan) 500 mls @ 0 mls/hr IVPB PRN PRN PRN Reason: To Maintain SBP > 90mmHg Stop: 04/19/18 10:44 Norepinephrine Bitartrate (Levophed) 250 mls @ 0 mls/hr IVPB PRN PRN; Protocol PRN Reason: To maintain SBP > 90 mmHG Magnesium Sulfate 2 gm/ Device 50 mls @ 100 mls/hr IVPB ONE [facility] Stop: 04/18/18 13:00 Nicardipine HCl 25 mg/ Sodium (Chloride) 260 mls @ 0 mls/hr IVPB INF PRN; Protocol PRN Reason: To Maintain SBP< 140mmHG Nitroglycerin/Dextrose (Nitroglycerin 50 Mg/250 Ml Bot) 250 mls @ 0 mls/hr IVPB PRN PRN; Protocol PRN Reason: To Maintain SBP< 140mmHG Sodium Chloride (Normal Saline 0.9%) 1,000 mls @ 100 mls/hr IV .Q10H [facility] Ketorolac Tromethamine (Toradol) 15 mg IVP Q6HR [facility] Stop: 04/21/18 12:01 Miscellaneous Medication (Post-Op Insulin Drip Protocol) 1 each IVPB ONE ONE Stop: 04/18/18 11:04 Miscellaneous Medication (Post-Op Sliding Scale) 1 each FS ONE ONE Stop: 04/18/18 11:04 Morphine Sulfate (Morphine) 2 mg SLOW IVP Q15MIN PRN PRN Reason: Severe Pain (7-10) Ondansetron HCl (Zofran) 4 mg IVP Q6H PRN PRN Reason: Nausea/Vomiting Potassium Chloride (Kcl) 20 meq IVPB PRN PRN PRN Reason: K level </= 4.0 Simvastatin (Zocor) 20 mg PO QPM [facility]
[2018-04-18 11:18] LABS: Puncture Site LINE
[2018-04-18] MEDS ORDERED: Dextrose 50% Abboject 50 ML SYRINGE SLOW IVP PRN (11:19)
[2018-04-18] MEDS ORDERED: Dextrose 5% in Water 1,000 ML IV PRN (11:19)
[2018-04-18] MEDS ORDERED: HUMULIN R 100 UNITS in Sodium Chloride 0.9% 100 ML IVPB SCH (11:19)
[2018-04-18] MEDS: Ketorolac Tromethamine 30 MG/ML VIAL IVP SCH ×3 (11:20→23:38)
[2018-04-18] MEDS: Sodium Chloride 0.9% 1,000 ML IV SCH ×2 (11:24→22:09)
[2018-04-18 11:25] LABS: INR-International Normal Ratio 1.3; PTT 29.5 SEC (22.9-36.1); Prothrombin Time 16.4 SEC (12.0-14.7)
[2018-04-18 11:30] LABS: Anion Gap 14 mmol/L (10-20); BUN (Urea Nitrogen) 11 mg/dL (9.8-20.1); Calc. Creatinine Clearance 66 mL/min (70-130); Calcium 7.5 mg/dL (7.8-10.44); Carbon Dioxide 20 mmol/L (23-31); Chloride 114 mmol/L (98-107); Estimated GFR-MDRD 89; Glucose 103 mg/dL (83-110); Potassium 3.7 mmol/L (3.5-5.1); Sodium 144 mmol/L (136-145)
[2018-04-18] MEDS ORDERED: Labetalol HCl 100 MG/20 ML VIAL IVPB PRN (11:57)
--- NOTE | 2018-04-18 12:16 | RAD ---
PORTABLE CHEST: Comparison: 04-13-18 History: Post op open heart surgery. FINDINGS: Post op sternotomy changes are now seen. Heart size is within normal limits. The lungs are clear of a ny infiltrates. Endotracheal tube is in satisfactory position. Left chest tube is seen with the tip i n the left apex. Right subclavian line is present with the tip overlying the distal superior vena cav a/right atrial junction. IMPRESSION: Endotracheal tube in satisfactory position. Post op sternotomy changes as discussed above. POS: CARYL
[2018-04-18] MEDS: Potassium Chloride 20 MEQ/100 ML PREMIX BAG IVPB PRN ×2 (12:17→17:38)
[2018-04-18] MEDS: Insulin Regular 300 UNITS/3 ML VIAL SC PRN ×2 (13:19→16:36)
[2018-04-18] MEDS: CEFAZOLIN 2 GM/50 ML BAG IVPB SCH ×2 (14:17→22:09)
[2018-04-18] MEDS ORDERED: Mannitol 12.5 GM/50 ML ONE (15:07)
[2018-04-18] MEDS ORDERED: Magnesium 5 GM/10 ML VIAL ONE (15:07)
[2018-04-18] MEDS ORDERED: PHENYLEPHRINE-NS 100 MCG/ML 10 ML SYRINGE ONE (15:07)
[2018-04-18] MEDS ORDERED: Papaverine 60 MG/2 ML VIAL ONE (15:07)
[2018-04-18] MEDS ORDERED: Aminocaproic Acid 5 GM/20 ML VIAL ONE (15:07)
[2018-04-18] MEDS ORDERED: Thrombin 5000 UNITS/5 ML VIAL ONE (15:07)
[2018-04-18] MEDS ORDERED: Rocuronium Bromide 10 MG/ML (10ML VIAL) ONE (15:07)
[2018-04-18] MEDS ORDERED: Lidocaine 2% PF 100 mg/5 ml Syringe ONE (15:07)
[2018-04-18] MEDS ORDERED: Calcium Chloride 1 GM/10 ML Abboject SYRINGE ONE (15:07)
[2018-04-18] MEDS ORDERED: Heparin 30,000 units/30 ml VIAL ONE (15:07)
[2018-04-18] MEDS ORDERED: ePHEDrine/0.9% NaCl/PF SYRINGE 50 mg/10 ml ONE (15:07)
[2018-04-18] MEDS ORDERED: PROPOFOL 200 MG/20 ML VIAL ONE (15:07)
[2018-04-18] MEDS ORDERED: Nitroglycerin 50 MG/250 ML BOT ONE (15:07)
[2018-04-18] MEDS ORDERED: Heparin 5,000 UNITS/ML VIAL ONE (15:07)
[2018-04-18] MEDS ORDERED: Lidocaine 1% PF 5 ML VIAL ONE (15:07)
[2018-04-18] MEDS ORDERED: Sodium Bicarb 50 MEQ/50 ML Abboject 8.4% SYRINGE ONE (15:07)
[2018-04-18] MEDS ORDERED: Potassium Chloride 60 MEQ/30 ML VIAL ONE (15:07)
[2018-04-18] MEDS ORDERED: Protamine Sulfate 250 MG/25 ML VIAL ONE (15:07)
[2018-04-18] MEDS: Ondansetron PF 4 MG/2 ML Vial IVP PRN (16:07)
[2018-04-18 16:51] LABS: Hemoglobin 9.9 g/dL (12.0-16.0)
[2018-04-18 17:08] LABS: Potassium 3.5 mmol/L (3.5-5.1)
[2018-04-18] MEDS ORDERED: Atorvastatin Calcium 10 MG TAB PO SCH (21:00)
[2018-04-18] MEDS: Famotidine/PF 20 mg/2ml Vial SLOW IVP SCH (21:47)
[2018-04-18 22:00] LABS: Magnesium 2.3 mg/dL (1.6-2.6); Potassium 3.9 mmol/L (3.5-5.1)
[2018-04-19] MEDS: HYDROcodone/Acetaminophen 5/325 mg Tablet PO PRN ×4 (05:01→21:30)
[2018-04-19 05:15] LABS: #Lymphocytes 1.1 thou/uL (1.20-3.40); #Monocytes 0.6 thou/uL (0.11-0.59); #Neutrophils 4.8 thou/uL (1.40-6.50); %Basophils 0.5 % (0.0-1.0); %Eosinophils 0.7 % (0.0-10.0); %Lymphocytes 16.7 % (21.0-51.0); %Monocytes 8.5 % (0.0-10.0); %Neutrophils 73.6 % (42.0-75.0); Hemoglobin 9.3 g/dL (12.0-16.0); Mean Corpuscular HGB CONC 33.6 g/dL (32.0-36.0); Mean Corpuscular Hemoglobin 31.3 pg (27.0-31.0); Mean Corpuscular Volume 93.2 fL (78.0-98.0); Mean Platelet Volume 8.1 fL (7.4-10.4); Platelet Count 143 thou/uL (130-400); RBC Distribution Width 13.3 % (11.5-14.5); Red Blood Cell (RBC) Count 2.97 mill/uL (4.20-5.40); White Blood Cell (WBC) Count 6.5 thou/uL (4.8-10.8)
[2018-04-19 05:43] LABS: Anion Gap 13 mmol/L (10-20); BUN (Urea Nitrogen) 10 mg/dL (9.8-20.1); Calc. Creatinine Clearance 65 mL/min (70-130); Calcium 7.4 mg/dL (7.8-10.44); Carbon Dioxide 21 mmol/L (23-31); Chloride 110 mmol/L (98-107); Estimated GFR-MDRD 88; Glucose 103 mg/dL (83-110); Potassium 3.5 mmol/L (3.5-5.1); Sodium 140 mmol/L (136-145)
[2018-04-19] MEDS: Ketorolac Tromethamine 30 MG/ML VIAL IVP SCH ×3 (06:00→17:23)
[2018-04-19] MEDS: CEFAZOLIN 2 GM/50 ML BAG IVPB SCH (06:01)
[2018-04-19] MEDS: Potassium Chloride 20 MEQ/100 ML PREMIX BAG IVPB PRN (06:41)
[2018-04-19] MEDS: Ondansetron PF 4 MG/2 ML Vial IVP PRN (07:35)
[2018-04-19] MEDS: Famotidine/PF 20 mg/2ml Vial SLOW IVP SCH (08:49)
[2018-04-19] MEDS: Sodium Chloride 0.9% 1,000 ML IV SCH ×2 (09:00→18:23)
[2018-04-19] MEDS ORDERED: Aspirin Chewable 81 MG TAB PO SCH (09:00)
--- NOTE | 2018-04-19 09:22 | RAD ---
PORTABLE CHEST: Date: 04/19/18 HISTORY: Postop open heart surgery. COMPARISON: Prior day's exam. FINDINGS: Heart size is enlarged. It appears more prominent than the prior exam, probably technique related. St ernotomy changes are again seen. Left chest tube is unchanged in position. Endotracheal tube has been removed. Right subclavian line is unchanged in position. IMPRESSION: Apparent slight increase in the heart size, but this is probably just on the basis of the differences in portable technique. Clinical correlation would be recommended. POS: OFF
--- NOTE | 2018-04-19 10:06 | OP ---
DATE OF PROCEDURE: 04/18/2018 PREOPERATIVE DIAGNOSIS: Coronary artery disease. PROCEDURE PERFORMED: Coronary bypass graft x2, small LEE but good flow to a 1.25 mm proximal LAD, saphenous vein good quality to a 1.5 to 2 mm OM. VINYL CUTTER: Dr. Parsons. DESCRIPTION OF PROCEDURE: After adequate anesthesia had been obtained, the patient was prepped and draped and Dr. Parsons harvested saphenous vein from the left thigh while I performed a median sternotomy. The left internal mammary artery was harvested and divided distally after heparinization and treated with intraluminal papaverine. Following this, aorta and right atrium were cannulated. The aorta lie close proximity to the right sternal edge. After cannulation and institution of cardiopulmonary bypass, the patient's vessels were inspected. Heart was small. Cross-clamp applied and 800 mL of cold blood cardioplegia was given through the aortic root. The OM was opened and saphenous vein was anastomosed here. Following this, the LAD was mostly intramyocardial and distally it came out, however, was known to be rather small here and it was found more proximally. It was surprisingly small at this level, but it was opened. Mammary was then incised to allow adequate length and the mammary coello were slightly . It was anastomosed to the LAD and there was good flow through this. The pedicle was secured and the cross-clamp removed and a single proximal anastomosis was performed on the aortic root and marked with a ring. The patient was weaned from cardiopulmonary bypass. Cannula was removed. Protamine was given systemically and the aortic cannulation sites were secured with a 4-0 Prolene suture. Mediastinal and left pleural drains were placed following which the sternum was reapproximated with #7 interrupted wire using platelet rich blood and platelet poor plasma. Due to vancomycin sensitivity, vancomycin paste was not used. The patient was to be taken to the ICU in guarded condition. Job ID: [id number]
[2018-04-19] MEDS ORDERED: Digoxin 0.5 MG/2 ML AMP ONE (10:11)
[2018-04-19] MEDS ORDERED: Diltiazem HCl 125 MG, Admixture Fee 1 EACH in Sodium Chloride 0.9% 100 ML IVPB SCH (10:30)
[2018-04-19] MEDS ORDERED: Digoxin 0.5 MG/2 ML AMP SLOW IVP SCH (10:30)
--- NOTE | 2018-04-19 10:42 | PDOC.PN ---
- Subjective Encounter Start Date: 04/19/18 Encounter Start Time: 09:30 Patient seen and examined. No overnight events she had transient SVT this morning she has chest wall surgical site pain pt has chest tube in place - Objective Resuscitation Status - Order Detail: 04/14/18 03:13 Resuscitation Status Routine Resuscitation Status: FULL: Full Resuscitation MAR Reviewed: Yes Vital Signs & Weight: Vital Signs (12 hours) Temp Pulse Pulse Ox 04/19/18 10:36 141 H 04/19/18 10:13 141 H 04/19/18 08:00 98.5 F 100 04/19/18 04:00 98.1 F 04/19/18 01:20 98 04/19/18 00:00 98.4 F Weight Weight 120 lb 5.958 oz Most Recent Monitor Data Heart Rate from ECG 136 NIBP 122/85 NIBP BP-Mean 97 Respiration from ECG 20 SpO2 100 I&O: 04/18/18 04/19/18 04/20/18 06:59 06:59 06:59 Intake Total 260 2564 200 Output Total 300 3615 155 Balance -40 -1051 45 Result Diagrams: 04/19/18 05:00 04/19/18 05:00 Additional Labs: Accuchecks 04/19/18 04/19/18 04/18/18 09:00 01:06 22:15 POC Glucose 95 109 94 04/18/18 04/18/18 04/18/18 16:34 13:13 11:04 POC Glucose 122 H 133 H 102 04/18/18 04/18/18 09:26 09:03 POC Glucose 116 H 112 H Radiology Reviewed by me: Yes (chest xray reivewed ) EKG Reviewed by me: Yes (nsr) Phys Exam - Physical Examination Constitutional: NAD HEENT: PERRLA, moist MMs, sclera anicteric Neck: no JVD, supple Respiratory: no wheezing, no rales, no rhonchi central line+, chest tube+ Cardiovascular: RRR, no significant murmur, no rub surgical site with dressing Gastrointestinal: soft, non-tender, no distention, positive bowel sounds Musculoskeletal: no edema, pulses present Neurological: non-focal, normal sensation Lymphatic: no nodes Psychiatric: normal affect, A&O x 3 Skin: no rash, normal turgor Dx/Plan (1) S/P CABG (coronary artery bypass graft) Code(s): Z95.1 - PRESENCE OF AORTOCORONARY BYPASS GRAFT Status: Acute (2) Hypokalemia Code(s): E87.6 - HYPOKALEMIA Status: Acute (3) Moderate aortic regurgitation Code(s): I35.1 - NONRHEUMATIC AORTIC (VALVE) INSUFFICIENCY Status: Acute (4) Moderate mitral regurgitation Code(s): I34.0 - NONRHEUMATIC MITRAL (VALVE) INSUFFICIENCY Status: Acute (5) CAD (coronary artery disease) Code(s): I25.10 - ATHSCL HEART DISEASE OF [place] CORONARY ARTERY W/O ANG PCTRS Status: Chronic Comment: (6) Chronic systolic heart failure, ACC/AHA stage C Code(s): I50.22 - CHRONIC SYSTOLIC (CONGESTIVE) HEART FAILURE Status: Chronic (7) H/O malignant neoplasm of breast Code(s): Z85.3 - PERSONAL HISTORY OF MALIGNANT NEOPLASM OF BREAST Status: Chronic (8) Osteoporosis Code(s): M81.0 - AGE-RELATED OSTEOPOROSIS W/O CURRENT PATHOLOGICAL FRACTURE Status: Chronic - Plan cont current plan of care * medication reviewed as below * symptomatic treatment * continue post cabg treament as per protocol under care of surgeon and cardiology * will monitor. Review of Systems - Review of Systems ENT: negative: Ear Pain, Ear Discharge, Nose Pain, Nose Discharge, Nose Congestion, Mouth Pain, Mouth Swelling, Throat Pain, Throat Swelling, Other Respiratory: negative: Cough, Dry, Shortness of Breath, Hemoptysis, SOB with Excertion, Pleuritic Pain, Sputum, Wheezing Cardiovascular: negative: chest pain, palpitations, orthopnea, paroxysmal nocturnal dyspnea, edema, light headedness, other Gastrointestinal: negative: Nausea, Vomiting, Abdominal Pain, Diarrhea, Constipation, Melena, Hematochezia, Other Genitourinary: negative: Dysuria, Frequency, Incontinence, Hematuria, Retention , Other Musculoskeletal: negative: Neck Pain, Shoulder Pain, Arm Pain, Back Pain, Hand Pain, Leg Pain, Foot Pain, Other Skin: negative: Rash, Lesions, Manoj, Bruising, Other - Medications/Allergies Allergies/Adverse Reactions: Allergies Allergy/AdvReac Type Severity Reaction Status Date / Time adhesive Allergy Verified 04/14/18 14:55 adhesive tape Allergy Verified 04/14/18 14:55 erythromycin base Allergy Verified 04/14/18 14:55 iodine Allergy Verified 04/14/18 14:55 nicotine Allergy Verified 04/14/18 14:55 DEMEROL Allergy Uncoded 04/14/18 14:55 PERCODAN Allergy Uncoded 04/14/18 14:55 SULFA Allergy Uncoded 04/14/18 14:55 VANCOMYCIN Allergy Uncoded 04/14/18 14:55 XRAY DYE Allergy Uncoded 04/14/18 14:55 Medications: Current Medications Acetaminophen (Tylenol) 650 mg PO Q6H PRN PRN Reason: Headache/Fever Or Mild Pain Last Admin: 04/18/18 21:45 Dose: 650 mg Hydrocodone Bitart/Acetaminophen ([place] 5/325) 1 tab PO Q4H PRN PRN Reason: Moderate Pain (4-6) Last Admin: 04/19/18 08:53 Dose: 1 tab Hydrocodone Bitart/Acetaminophen ([place] 5/325) 2 tab PO Q4H PRN PRN Reason: Severe Pain (7-10) Al Hydroxide/Mg Hydroxide (Maalox) 30 ml PO Q4H PRN PRN Reason: Indigestion Albumin Human (Albumin 5%) 12.5 gm IVPB Q6H PRN PRN Reason: To Maintain SBP> 90 mmHG Stop: 04/19/18 11:04 Albumin Human (Albumin 5%) 25 gm IVPB Q6H PRN PRN Reason: To Maintain SBP > 90 mmHG Stop: 04/19/18 11:04 Last Admin: 04/18/18 12:33 Dose: 25 gm Albuterol/Ipratropium (Duoneb) 3 ml NEB [id number] PRN PRN Reason: SHORTNESS OF BREATH Aspirin (Aspirin Chewable) 81 mg PO DAILY [facility] Last Admin: 04/19/18 08:49 Dose: 81 mg Atorvastatin Calcium (Lipitor) 10 mg PO QPM [facility] Last Admin: 04/18/18 22:07 Dose: Not Given Bisacodyl (Dulcolax) 10 mg PO Q12H PRN PRN Reason: Constipation Bisacodyl (Dulcolax) 10 mg [place] Q12H PRN PRN Reason: Constipation Dextrose/Water (Dextrose 50%) 25 gm SLOW IVP PRN PRN PRN Reason: PER HYPOGLYCEMIC PROTOCOL Digoxin (Lanoxin) 0.5 mg SLOW IVP NOW [facility] Stop: 04/19/18 12:30 Last Admin: 04/19/18 10:36 Dose: Not Given Famotidine (Pepcid) 20 mg SLOW IVP Q12HR [facility] Last Admin: 04/19/18 08:49 Dose: 20 mg Fentanyl (Sublimaze) 25 mcg SLOW IVP Q2H PRN PRN Reason: Moderate Pain (4-6) Stop: 04/20/18 10:44 Glucagon (Glucagon) 1 mg SC PRN PRN PRN Reason: PER HYPOGLYCEMIC PROTOCOL Guaifenesin/Dextromethorphan (Robitussin Dm) 15 ml PO Q4H PRN PRN Reason: Cough Hydralazine HCl (Apresoline) 10 mg SLOW IVP Q6H PRN PRN Reason: To Maintain SBP< 140mmHG Last Admin: 04/18/18 11:44 Dose: 10 mg Dopamine HCl/Dextrose (Dopamine/D5w) 250 mls @ 0 mls/hr IVPB PRN PRN; Protocol PRN Reason: To maintain SBP > 90 mmHG Hetastarch/Sodium Chloride (Hespan) 500 mls @ 0 mls/hr IVPB PRN PRN PRN Reason: To Maintain SBP > 90mmHg Stop: 04/19/18 10:44 Norepinephrine Bitartrate (Levophed) 250 mls @ 0 mls/hr IVPB PRN PRN; Protocol PRN Reason: To maintain SBP > 90 mmHG Nicardipine HCl 25 mg/ Sodium (Chloride) 260 mls @ 0 mls/hr IVPB INF PRN; Protocol PRN Reason: To Maintain SBP< 140mmHG Nitroglycerin/Dextrose (Nitroglycerin 50 Mg/250 Ml Bot) 250 mls @ 0 mls/hr IVPB PRN PRN; Protocol PRN Reason: To Maintain SBP< 140mmHG Sodium Chloride (Normal Saline 0.9%) 1,000 mls @ 100 mls/hr IV .Q10H [facility] Last Admin: 04/19/18 09:00 Dose: Not Given Insulin Human Regular 100 (units/ Sodium Chloride) 101 mls @ 0 mls/hr IVPB INF [facility]; Protocol Dextrose/Water (D5w) 1,000 mls @ 0 mls/hr IV INF PRN PRN Reason: PRN HYPOGLYCEMIC PROTOCOL Diltiazem HCl 125 mg/Miscellaneous Medication 1 each/ Sodium Chloride 125 mls @ 5 mls/hr IVPB INF [facility]; Protocol Last Admin: 04/19/18 10:35 Dose: 125 mls Insulin Glargine (Lantus) 0 units SC ONE PRN PRN Reason: PER OPEN HEART ORDERS Stop: 04/19/18 19:00 Insulin Human Regular (Humulin R) 0 units SC Q4H PRN; Protocol PRN Reason: POST OP SLIDING SCALE Last Admin: 04/18/18 16:36 Dose: 2 unit Ketorolac Tromethamine (Toradol) 15 mg IVP Q6HR [facility] Stop: 04/21/18 12:01 Last Admin: 04/19/18 06:00 Dose: 15 mg Labetalol HCl (Normodyne) 15 mg IVPB Q15MIN PRN PRN Reason: SBP >140 Morphine Sulfate (Morphine) 2 mg SLOW IVP Q15MIN PRN PRN Reason: Severe Pain (7-10) Ondansetron HCl (Zofran) 4 mg IVP Q6H PRN PRN Reason: Nausea/Vomiting Last Admin: 04/19/18 07:35 Dose: 4 mg Potassium Chloride (Kcl) 20 meq IVPB PRN PRN PRN Reason: K level </= 4.0 Last Admin: 04/19/18 06:41 Dose: 20 meq
[2018-04-19] MEDS: Amiodarone 450 MG in Dextrose 5% in Water 250 ML IVPB SCH (20:03)
[2018-04-19] MEDS ORDERED: Famotidine 20 MG TAB PO SCH (21:00)
[2018-04-19] MEDS: Atorvastatin Calcium 40 MG TAB PO SCH (21:30)
[2018-04-20] MEDS: Ketorolac Tromethamine 30 MG/ML VIAL IVP SCH ×2 (00:48→05:09)
[2018-04-20] MEDS: Sodium Chloride 0.9% 1,000 ML IV SCH (04:34)
[2018-04-20 04:52] LABS: #Eosinphils 0.2 thou/uL (0.0-0.7); #Lymphocytes 1.2 thou/uL (1.20-3.40); #Monocytes 0.8 thou/uL (0.11-0.59); #Neutrophils 4.5 thou/uL (1.40-6.50); %Basophils 0.3 % (0.0-1.0); %Eosinophils 2.4 % (0.0-10.0); %Lymphocytes 18.2 % (21.0-51.0); %Monocytes 11.3 % (0.0-10.0); %Neutrophils 67.8 % (42.0-75.0); Hemoglobin 9.2 g/dL (12.0-16.0); Mean Corpuscular HGB CONC 33.3 g/dL (32.0-36.0); Mean Corpuscular Hemoglobin 32.1 pg (27.0-31.0); Mean Corpuscular Volume 96.3 fL (78.0-98.0); Mean Platelet Volume 8.2 fL (7.4-10.4); Platelet Count 142 thou/uL (130-400); RBC Distribution Width 13.2 % (11.5-14.5); Red Blood Cell (RBC) Count 2.88 mill/uL (4.20-5.40); White Blood Cell (WBC) Count 6.7 thou/uL (4.8-10.8)
[2018-04-20 05:03] LABS: Anion Gap 8 mmol/L (10-20); BUN (Urea Nitrogen) 11 mg/dL (9.8-20.1); Calc. Creatinine Clearance 63 mL/min (70-130); Calcium 7.8 mg/dL (7.8-10.44); Carbon Dioxide 25 mmol/L (23-31); Chloride 107 mmol/L (98-107); Estimated GFR-MDRD 85; Glucose 135 mg/dL (83-110); Potassium 4.2 mmol/L (3.5-5.1); Sodium 136 mmol/L (136-145)
[2018-04-20] MEDS: Ondansetron PF 4 MG/2 ML Vial IVP PRN (05:09)
[2018-04-20] MEDS ORDERED: Nitroglycerin 0.4 MG TAB (25 Tab Bottle) SL PRN (07:11)
[2018-04-20] MEDS ORDERED: Guaifenesin DM 100-10/5 ML UDCUP PO PRN (07:11)
[2018-04-20] MEDS ORDERED: traMADol HCl 50 MG TAB PO PRN (07:11)
[2018-04-20] MEDS ORDERED: Mineral Oil ENEMA PR PRN (07:11)
[2018-04-20] MEDS ORDERED: Bisacodyl 5 MG TAB PO PRN (07:11)
[2018-04-20] MEDS ORDERED: Bisacodyl 10 MG SUPP PR PRN (07:11)
--- NOTE | 2018-04-20 08:19 | RAD ---
CHEST 1 VIEW: HISTORY: Heart surgery. Followup. COMPARISON: 04/19/2018. FINDINGS: Cardiac silhouette is magnified and enlarged. Pulmonary vasculature is unremarkable. Mediastinum is midline with postoperative changes. Lines and tubes appear unchanged in position. No evidence for recurrent pneumothorax. Parenchymal opacity at the left base with the appearance of atelectasis is s table. desk monitor leads overlie the chest. IMPRESSION: Stable postoperative appearance of the chest. POS: CARYL
[2018-04-20] MEDS: Polyethylene Glycol 3350 17 GM Packet PO SCH (09:40)
[2018-04-20] MEDS: Famotidine 20 MG TAB PO SCH ×2 (09:41→22:12)
[2018-04-20] MEDS: Aspirin 325 mg Enteric Coated Tablet PO SCH (09:41)
--- NOTE | 2018-04-20 09:55 | PDOC.PN ---
- Subjective Encounter Start Date: 04/20/18 Encounter Start Time: 08:50 Patient seen and examined. No new complaints. No overnight events currently on amiodaron drip, pt feels weak - Objective Resuscitation Status - Order Detail: 04/14/18 03:13 Resuscitation Status Routine Resuscitation Status: FULL: Full Resuscitation MAR Reviewed: Yes Vital Signs & Weight: Vital Signs (12 hours) Temp Pulse Resp Pulse Ox 04/20/18 08:00 98.3 F 78 22 H 98 04/20/18 07:11 97 04/20/18 07:00 98.3 F Weight Weight 122 lb 2.177 oz Most Recent Monitor Data Heart Rate from ECG 72 NIBP 154/68 NIBP BP-Mean 96 Respiration from ECG 23 SpO2 97 I&O: 04/19/18 04/20/18 04/21/18 06:59 06:59 06:59 Intake Total 2564 960 Output Total 3615 1025 20 Balance -1051 -65 -20 Result Diagrams: 04/20/18 04:20 04/20/18 04:20 Additional Labs: Accuchecks 04/19/18 20:11 POC Glucose 163 H EKG Reviewed by me: Yes Phys Exam - Physical Examination Constitutional: NAD HEENT: PERRLA, moist MMs, sclera anicteric Neck: no JVD, supple Respiratory: no wheezing, no rales, no rhonchi surgical site with dressing, central line+ Cardiovascular: RRR, no significant murmur, no rub Gastrointestinal: soft, non-tender, no distention, positive bowel sounds Musculoskeletal: no edema, pulses present Neurological: non-focal, normal sensation, moves all 4 limbs Lymphatic: no nodes Psychiatric: normal affect, A&O x 3 Skin: no rash, normal turgor Dx/Plan (1) S/P CABG (coronary artery bypass graft) Code(s): Z95.1 - PRESENCE OF AORTOCORONARY BYPASS GRAFT Status: Acute (2) Hypokalemia Code(s): E87.6 - HYPOKALEMIA Status: Acute (3) Moderate aortic regurgitation Code(s): I35.1 - NONRHEUMATIC AORTIC (VALVE) INSUFFICIENCY Status: Acute (4) Moderate mitral regurgitation Code(s): I34.0 - NONRHEUMATIC MITRAL (VALVE) INSUFFICIENCY Status: Acute (5) CAD (coronary artery disease) Code(s): I25.10 - ATHSCL HEART DISEASE OF [place] CORONARY ARTERY W/O ANG PCTRS Status: Chronic Comment: (6) Chronic systolic heart failure, ACC/AHA stage C Code(s): I50.22 - CHRONIC SYSTOLIC (CONGESTIVE) HEART FAILURE Status: Chronic (7) H/O malignant neoplasm of breast Code(s): Z85.3 - PERSONAL HISTORY OF MALIGNANT NEOPLASM OF BREAST Status: Chronic (8) Osteoporosis Code(s): M81.0 - AGE-RELATED OSTEOPOROSIS W/O CURRENT PATHOLOGICAL FRACTURE Status: Chronic - Plan cont current plan of care * medication reviewed as below * symptomatic treatment * continue cardiac rehab * continue amiodaron drip as per cardiology * today transfer to tele. Review of Systems - Review of Systems Constitutional: weakness. negative: fever, chills, sweats, malaise, other Respiratory: negative: Cough, Dry, Shortness of Breath, Hemoptysis, SOB with Excertion, Pleuritic Pain, Sputum, Wheezing Cardiovascular: negative: chest pain, palpitations, orthopnea, paroxysmal nocturnal dyspnea, edema, light headedness, other Gastrointestinal: negative: Nausea, Vomiting, Abdominal Pain, Diarrhea, Constipation, Melena, Hematochezia, Other Genitourinary: negative: Dysuria, Frequency, Incontinence, Hematuria, Retention , Other Musculoskeletal: negative: Neck Pain, Shoulder Pain, Arm Pain, Back Pain, Hand Pain, Leg Pain, Foot Pain, Other - Medications/Allergies Allergies/Adverse Reactions: Allergies Allergy/AdvReac Type Severity Reaction Status Date / Time adhesive Allergy Verified 04/14/18 14:55 adhesive tape Allergy Verified 04/14/18 14:55 erythromycin base Allergy Verified 04/14/18 14:55 iodine Allergy Verified 04/14/18 14:55 nicotine Allergy Verified 04/14/18 14:55 DEMEROL Allergy Uncoded 04/14/18 14:55 PERCODAN Allergy Uncoded 04/14/18 14:55 SULFA Allergy Uncoded 04/14/18 14:55 VANCOMYCIN Allergy Uncoded 04/14/18 14:55 XRAY DYE Allergy Uncoded 04/14/18 14:55 Medications: Current Medications Acetaminophen (Tylenol) 650 mg PO Q6H PRN PRN Reason: Headache/Fever or Pain Al Hydroxide/Mg Hydroxide (Maalox) 30 ml PO Q4H PRN PRN Reason: Indigestion Aspirin (Ecotrin) 325 mg PO DAILY [facility] Last Admin: 04/20/18 09:41 Dose: 325 mg Atorvastatin Calcium (Lipitor) 40 mg PO HS [facility] Last Admin: 04/19/18 21:30 Dose: 40 mg Bisacodyl (Dulcolax) 10 mg PO Q12H PRN PRN Reason: Constipation Bisacodyl (Dulcolax) 10 mg [place] Q12H PRN PRN Reason: Constipation Enoxaparin Sodium (Lovenox) 30 mg SC 2100 [facility] Famotidine (Pepcid) 20 mg PO BID [facility] Last Admin: 04/20/18 09:41 Dose: 20 mg Guaifenesin/Dextromethorphan (Robitussin Dm) 15 ml PO Q4H PRN PRN Reason: Cough Amiodarone HCl 450 mg/ (Dextrose/Water) 259 mls @ 0 mls/hr IVPB INF [facility]; Protocol Last Admin: 04/19/18 20:03 Dose: 259 mls Mineral Oil (Fleet Mineral Oil) 133 ml [place] DAILYPRN PRN PRN Reason: Constipation Nitroglycerin (Nitrostat) 0.4 mg SL Q5MIN PRN PRN Reason: Chest Pain Ondansetron HCl (Zofran) 4 mg IVP Q6H PRN PRN Reason: Nausea/Vomiting Polyethylene Glycol (Miralax) 17 gm PO DAILY [facility] Last Admin: 04/20/18 09:40 Dose: 17 gm Sodium Chloride (Flush - Normal Saline) 10 ml IVF Q12HR [facility] Last Admin: 04/20/18 09:42 Dose: Not Given Sodium Chloride (Flush - Normal Saline) 10 ml IVF PRN PRN PRN Reason: Saline Flush Tramadol HCl (Ultram) 50 mg PO Q6H PRN PRN Reason: Pain
--- NOTE | 2018-04-20 20:48 | EKG ---
Test Reason : POSTCABG Blood Pressure : / mmHG Vent. Rate : 086 BPM Atrial Rate : 086 BPM P-R Int : 154 ms QRS Dur : 098 ms QT Int : 418 ms P-R-T Axes : 079 -67 023 degrees QTc Int : 500 ms Normal sinus rhythm Left axis deviation Septal infarct (cited on or before 08-SEP-2017) Abnormal ECG When compared with ECG of 13-APR-2018 22:25, (Unconfirmed) Abberant conduction is no longer Present Confirmed by Giuliana MEADOWS ([id number]) on 04/20/2018 8:48:29 PM Referred By: KARLO Confirmed By:Giuliana MEADOWS
--- NOTE | 2018-04-20 20:56 | EKG ---
Test Reason : Blood Pressure : / mmHG Vent. Rate : 079 BPM Atrial Rate : 079 BPM P-R Int : 146 ms QRS Dur : 100 ms QT Int : 404 ms P-R-T Axes : 086 -40 033 degrees QTc Int : 463 ms Sinus rhythm with Premature supraventricular complexes Left axis deviation Abnormal ECG When compared with ECG of 19-APR-2018 07:59, (Unconfirmed) No significant change was found Confirmed by Giuliana MEADOWS ([id number]) on 04/20/2018 8:55:46 PM Referred By: CARLITA Confirmed By:Giuliana MEADOWS
[2018-04-20] MEDS: Amiodarone 450 MG in Dextrose 5% in Water 250 ML IVPB SCH (21:04)
[2018-04-20] MEDS: Amiodarone 200 MG TAB PO SCH (22:10)
[2018-04-20] MEDS: Atorvastatin Calcium 40 MG TAB PO SCH (22:12)
[2018-04-20] MEDS: Enoxaparin Sodium 30 MG/0.3 ML SYRINGE SC SCH ×2 (22:13→22:19)
[2018-04-20] MEDS: Mag-Al 1200 mg/1200 mg/30 ML UDCUP PO PRN (23:49)
[2018-04-20] MEDS: Acetaminophen 325 MG TAB PO PRN (23:50)
[2018-04-21] MEDS: Polyethylene Glycol 3350 17 GM Packet PO SCH (09:10)
[2018-04-21] MEDS: Famotidine 20 MG TAB PO SCH ×2 (09:10→21:22)
[2018-04-21] MEDS: Amiodarone 200 MG TAB PO SCH ×2 (09:10→21:22)
[2018-04-21] MEDS: Aspirin 325 mg Enteric Coated Tablet PO SCH (09:10)
--- NOTE | 2018-04-21 09:32 | PDOC.PN ---
- Subjective Encounter Start Date: 04/21/18 Encounter Start Time: 07:45 Patient seen and examined. No new complaints. No overnight events - Objective Resuscitation Status - Order Detail: 04/14/18 03:13 Resuscitation Status Routine Resuscitation Status: FULL: Full Resuscitation MAR Reviewed: Yes Vital Signs & Weight: Vital Signs (12 hours) Temp Pulse Resp BP BP Pulse Ox 04/21/18 08:10 97.6 F 107 H 20 114/57 L 99 04/21/18 03:12 98.3 F 94 16 143/57 H 96 04/20/18 23:03 127 H 18 143/83 H 04/20/18 22:19 97 Weight Weight 138 lb Most Recent Monitor Data Heart Rate from ECG 72 NIBP 139/69 NIBP BP-Mean 92 Respiration from ECG 19 SpO2 100 I&O: 04/20/18 04/21/18 04/22/18 06:59 06:59 06:59 Intake Total 960 1007 Output Total 1025 550 Balance -65 457 Result Diagrams: 04/20/18 04:20 04/20/18 04:20 Additional Labs: Accuchecks 04/20/18 04/20/18 11:58 04:19 POC Glucose 132 H 139 H EKG Reviewed by me: Yes Phys Exam - Physical Examination Constitutional: NAD HEENT: PERRLA, moist MMs, sclera anicteric Neck: no JVD, supple Respiratory: no wheezing, no rales, no rhonchi surgical site with dressing Cardiovascular: no significant murmur, no rub Gastrointestinal: soft, non-tender, no distention, positive bowel sounds Musculoskeletal: no edema, pulses present Neurological: non-focal, normal sensation, moves all 4 limbs Lymphatic: no nodes Psychiatric: normal affect, A&O x 3 Skin: no rash, normal turgor Dx/Plan (1) S/P CABG (coronary artery bypass graft) Code(s): Z95.1 - PRESENCE OF AORTOCORONARY BYPASS GRAFT Status: Acute (2) Hypokalemia Code(s): E87.6 - HYPOKALEMIA Status: Acute (3) Moderate aortic regurgitation Code(s): I35.1 - NONRHEUMATIC AORTIC (VALVE) INSUFFICIENCY Status: Acute (4) Moderate mitral regurgitation Code(s): I34.0 - NONRHEUMATIC MITRAL (VALVE) INSUFFICIENCY Status: Acute (5) CAD (coronary artery disease) Code(s): I25.10 - ATHSCL HEART DISEASE OF [place] CORONARY ARTERY W/O ANG PCTRS Status: Chronic Comment: (6) Chronic systolic heart failure, ACC/AHA stage C Code(s): I50.22 - CHRONIC SYSTOLIC (CONGESTIVE) HEART FAILURE Status: Chronic (7) H/O malignant neoplasm of breast Code(s): Z85.3 - PERSONAL HISTORY OF MALIGNANT NEOPLASM OF BREAST Status: Chronic (8) Osteoporosis Code(s): M81.0 - AGE-RELATED OSTEOPOROSIS W/O CURRENT PATHOLOGICAL FRACTURE Status: Chronic - Plan cont current plan of care * currently on amiodaron drip as per cardiology * medication reviewed as below * symptomatic treatment * continue cardiac rehab. Review of Systems - Review of Systems ENT: negative: Ear Pain, Ear Discharge, Nose Pain, Nose Discharge, Nose Congestion, Mouth Pain, Mouth Swelling, Throat Pain, Throat Swelling, Other Respiratory: negative: Cough, Dry, Shortness of Breath, Hemoptysis, SOB with Excertion, Pleuritic Pain, Sputum, Wheezing Cardiovascular: negative: chest pain, palpitations, orthopnea, paroxysmal nocturnal dyspnea, edema, light headedness, other Gastrointestinal: negative: Nausea, Vomiting, Abdominal Pain, Diarrhea, Constipation, Melena, Hematochezia, Other Genitourinary: negative: Dysuria, Frequency, Incontinence, Hematuria, Retention , Other Musculoskeletal: negative: Neck Pain, Shoulder Pain, Arm Pain, Back Pain, Hand Pain, Leg Pain, Foot Pain, Other - Medications/Allergies Allergies/Adverse Reactions: Allergies Allergy/AdvReac Type Severity Reaction Status Date / Time adhesive Allergy Verified 04/14/18 14:55 adhesive tape Allergy Verified 04/14/18 14:55 erythromycin base Allergy Verified 04/14/18 14:55 iodine Allergy Verified 04/14/18 14:55 nicotine Allergy Verified 04/14/18 14:55 DEMEROL Allergy Uncoded 04/14/18 14:55 PERCODAN Allergy Uncoded 04/14/18 14:55 SULFA Allergy Uncoded 04/14/18 14:55 VANCOMYCIN Allergy Uncoded 04/14/18 14:55 XRAY DYE Allergy Uncoded 04/14/18 14:55 Medications: Current Medications Acetaminophen (Tylenol) 650 mg PO Q6H PRN PRN Reason: Headache/Fever or Pain Last Admin: 04/20/18 23:50 Dose: 650 mg Al Hydroxide/Mg Hydroxide (Maalox) 30 ml PO Q4H PRN PRN Reason: Indigestion Last Admin: 04/20/18 23:49 Dose: 30 ml Amiodarone HCl (Cordarone) [address] [facility] Last Admin: 04/21/18 09:10 Dose: 400 mg Aspirin (Ecotrin) [address] [facility] Last Admin: 04/21/18 09:10 Dose: 325 mg Atorvastatin Calcium (Lipitor) [address] [facility] Last Admin: 04/20/18 22:12 Dose: 40 mg Bisacodyl (Dulcolax) 10 mg PO Q12H PRN PRN Reason: Constipation Bisacodyl (Dulcolax) 10 mg [place] Q12H PRN PRN Reason: Constipation Enoxaparin Sodium (Lovenox) [address] [facility] Last Admin: 04/20/18 22:19 Dose: Not Given Famotidine (Pepcid) [address] [facility] Last Admin: 04/21/18 09:10 Dose: 20 mg Guaifenesin/Dextromethorphan (Robitussin Dm) 15 ml PO Q4H PRN PRN Reason: Cough Amiodarone HCl 450 mg/ (Dextrose/Water) 259 mls @ 0 mls/hr IVPB INF [facility]; Protocol Mineral Oil (Fleet Mineral Oil) 133 ml [place] DAILYPRN PRN PRN Reason: Constipation Nitroglycerin (Nitrostat) 0.4 mg SL Q5MIN PRN PRN Reason: Chest Pain Ondansetron HCl (Zofran) 4 mg IVP Q6H PRN PRN Reason: Nausea/Vomiting Polyethylene Glycol (Miralax) [address] [facility] Last Admin: 04/21/18 09:10 Dose: 17 gm Sodium Chloride (Flush - Normal Saline) [address] [facility] Last Admin: 04/21/18 09:10 Dose: 10 ml Sodium Chloride (Flush - Normal Saline) 10 ml IVF PRN PRN PRN Reason: Saline Flush Last Admin: 04/20/18 22:13 Dose: 10 ml Tramadol HCl (Ultram) 50 mg PO Q6H PRN PRN Reason: Pain
[2018-04-21] MEDS ORDERED: Amiodarone 150 MG in Dextrose 5% in Water 100 ML IVPB SCH (09:45)
[2018-04-21] MEDS: Amiodarone 450 MG in Dextrose 5% in Water 250 ML IVPB SCH (12:37)
[2018-04-21] MEDS: Ondansetron PF 4 MG/2 ML Vial IVP PRN ×2 (17:42→23:36)
[2018-04-21] MEDS: Atorvastatin Calcium 40 MG TAB PO SCH (21:22)
[2018-04-21] MEDS: Enoxaparin Sodium 30 MG/0.3 ML SYRINGE SC SCH (21:26)
[2018-04-21] MEDS: Mag-Al 1200 mg/1200 mg/30 ML UDCUP PO PRN (22:16)
[2018-04-22] MEDS: Amiodarone 450 MG in Dextrose 5% in Water 250 ML IVPB SCH (03:21)
[2018-04-22] MEDS: Ondansetron PF 4 MG/2 ML Vial IVP PRN (08:43)
--- NOTE | 2018-04-22 09:28 | PDOC.PN ---
- Subjective Encounter Start Date: 04/22/18 Encounter Start Time: 09:27 Subjective: Seen and examined with no new complaint - Objective Resuscitation Status - Order Detail: 04/14/18 03:13 Resuscitation Status Routine Resuscitation Status: FULL: Full Resuscitation Vital Signs & Weight: Vital Signs (12 hours) Temp Pulse Resp BP BP Pulse Ox 04/22/18 08:28 99.0 F 69 16 145/60 H 95 04/22/18 04:36 95 04/22/18 03:25 98.3 F 68 20 120/64 95 04/22/18 00:47 96 04/21/18 23:31 69 24 H 130/70 96 Weight Weight 129 lb 4.8 oz Most Recent Monitor Data Heart Rate from ECG 72 NIBP 139/69 NIBP BP-Mean 92 Respiration from ECG 19 SpO2 100 I&O: 04/21/18 04/22/18 04/23/18 06:59 06:59 06:59 Intake Total 1007 674.4 Output Total 550 725 Balance 457 -50.6 Result Diagrams: 04/23/18 05:43 04/23/18 05:43 Phys Exam - Physical Examination Constitutional: NAD HEENT: PERRLA, moist MMs, sclera anicteric, TM's clear Neck: no nodes, no JVD, supple, full ROM Respiratory: no wheezing, no rales, no rhonchi Cardiovascular: RRR, no significant murmur, no rub Gastrointestinal: non-tender, positive bowel sounds Musculoskeletal: pulses present Dx/Plan (1) Moderate aortic regurgitation Code(s): I35.1 - NONRHEUMATIC AORTIC (VALVE) INSUFFICIENCY Status: Acute (2) Moderate mitral regurgitation Code(s): I34.0 - NONRHEUMATIC MITRAL (VALVE) INSUFFICIENCY Status: Acute (3) S/P CABG (coronary artery bypass graft) Code(s): Z95.1 - PRESENCE OF AORTOCORONARY BYPASS GRAFT Status: Acute (4) CAD (coronary artery disease) Code(s): I25.10 - ATHSCL HEART DISEASE OF [place] CORONARY ARTERY W/O ANG PCTRS Status: Chronic Comment: (5) Chronic systolic heart failure, ACC/AHA stage C Code(s): I50.22 - CHRONIC SYSTOLIC (CONGESTIVE) HEART FAILURE Status: Chronic (6) H/O malignant neoplasm of breast Code(s): Z85.3 - PERSONAL HISTORY OF MALIGNANT NEOPLASM OF BREAST Status: Chronic (7) Osteoporosis Code(s): M81.0 - AGE-RELATED OSTEOPOROSIS W/O CURRENT PATHOLOGICAL FRACTURE Status: Chronic - Plan PT/OT, neonatal social worker, respiratory therapy, incentive spirometry, DVT proph w/ lovenox Now on Amiodarone tabs per cardiology -: patient refusing lipitor -: Cardiology following--Dr Biswas to follow wan * .
[2018-04-22] MEDS: Famotidine 20 MG TAB PO SCH ×2 (09:33→20:57)
[2018-04-22] MEDS: Amiodarone 200 MG TAB PO SCH ×2 (09:33→20:53)
[2018-04-22] MEDS: Aspirin 325 mg Enteric Coated Tablet PO SCH (09:33)
[2018-04-22] MEDS: Polyethylene Glycol 3350 17 GM Packet PO SCH (09:33)
[2018-04-22] MEDS: Atorvastatin Calcium 40 MG TAB PO SCH (20:54)
--- NOTE | 2018-04-23 05:54 | PDOC.EVN ---
Event Note - Event Note Event Note: Code green called due to new onset left sided weakness pt seems to have developed stroke, pt had cabg a week ago therefore tpa is contraindicated, we will proceed with stroke protocol, and treat accordingly.
[2018-04-23 06:02] LABS: #Basophils 0.1 thou/uL (0.0-0.2); #Eosinphils 0.1 thou/uL (0.0-0.7); #Monocytes 1.2 thou/uL (0.11-0.59); #Neutrophils 6.3 thou/uL (1.40-6.50); %Basophils 0.8 % (0.0-1.0); %Eosinophils 0.7 % (0.0-10.0); %Lymphocytes 12.1 % (21.0-51.0); %Monocytes 13.6 % (0.0-10.0); %Neutrophils 72.8 % (42.0-75.0); Hemoglobin 10.1 g/dL (12.0-16.0); Mean Corpuscular HGB CONC 32.9 g/dL (32.0-36.0); Mean Corpuscular Hemoglobin 31.2 pg (27.0-31.0); Mean Corpuscular Volume 94.8 fL (78.0-98.0); Mean Platelet Volume 7.8 fL (7.4-10.4); Platelet Count 240 thou/uL (130-400); RBC Distribution Width 13.1 % (11.5-14.5); Red Blood Cell (RBC) Count 3.25 mill/uL (4.20-5.40); White Blood Cell (WBC) Count 8.6 thou/uL (4.8-10.8)
[2018-04-23 06:05] LABS: PTT 26.8 SEC (22.9-36.1); Prothrombin Time 13.7 SEC (12.0-14.7)
[2018-04-23 06:14] LABS: ALT (SGPT) 69 U/L (8-55); AST (SGOT) 69 U/L (5-34); Albumin 3.2 g/dL (3.4-4.8); Alkaline Phosphatase 139 U/L (40-150); Anion Gap 14 mmol/L (10-20); BUN (Urea Nitrogen) 9 mg/dL (9.8-20.1); Bilirubin, Total 0.9 mg/dL (0.2-1.2); CKMB 2.8 ng/mL (0-6.6); Calc. Creatinine Clearance 63 mL/min (70-130); Calcium 8.2 mg/dL (7.8-10.44); Carbon Dioxide 23 mmol/L (23-31); Chloride 103 mmol/L (98-107); Estimated GFR-MDRD 79; Glucose 123 mg/dL (83-110); Potassium 4.4 mmol/L (3.5-5.1); Protein, Total 5.2 g/dL (6.0-8.3); Sodium 136 mmol/L (136-145); Troponin I 0.147 ng/mL (< 0.028)
--- NOTE | 2018-04-23 07:26 | PDOC.EVN ---
Event Note - Event Note Event Note: case discussed with Neurosurgery -Dr Dash pt will need CTA, but she has allergies to iodine, if iodine allergy protocol can be given in less than 1 hours would do it and get CTA to evaluate for procedure, if it takes longer then will follow stroke protocol, since p will be out of window for thrombectomy.
[2018-04-23] MEDS ORDERED: Hydrocortisone Sod Succ/PF 100 mg/2 ml Vial IVP SCH (07:30)
[2018-04-23] MEDS ORDERED: diphenhydrAMINE 50 MG/ML VIAL IVP SCH (07:30)
[2018-04-23] MEDS ORDERED: Famotidine/PF 20 mg/2ml Vial SLOW IVP SCH (07:30)
--- NOTE | 2018-04-23 08:08 | CT ---
PRELIMINARY REPORT/[facility]/EMERGENTY AFTER-HOURS PROCEDURE Addendum created by Kong Simmons MD on 04/23/2018 6:51 AM Central Time ([place] & [place]) This Report Conta ins Findings That May Be Critical To Patient Care. The findings were verbally communicated via teleph one conference with NGOC Baldwin at 7:50 AM EST on 04/23/2018. The findings were acknowledged and u nderstood. Initial Report created on 04/23/2018 6:22 AM Central Time ([place] & [place]) CT Head Without Contrast EXAM DATE/TIME: 04/23/2018 5:57 AM CLINICAL HISTORY: 72 years old, female; Visual disturbance and weakness, extremity and weakness, facial; Left; left jose e weakness facial droop, mumbles, slurred speech, in attention to left arm, fall. Heart failure, hear t attack, stroke/tia x3, breast cancer w l lump removal tonselectonmy r caterack airam, appy hysterect yeni CABG x 2 04/18/18 TECHNIQUE: Axial computed tomography images of the head/brain without contrast. STROKE PROTOCOL was implemented. COMPARISON: CT Head 04/14/2018 FINDINGS: Evaluation more difficult due to patient's motion artifact. Brain: No midline shift, mass effect, or intracranial hemorrhage. Ventricles: CSF spaces overall mildly enlarged and likely represents age-appropriate, cerebral volume loss. Right lateral ventricle is again moderately smaller than left and is likely congenital. Bones/joints: No fracture. Sinuses: Unremarkable. Mastoid air cells: Unremarkable. Soft tissues: Unremarkable. Vasculature: Hyperdense right middle cerebral artery M1 segment. IMPRESSION: Evaluation more difficult due to patient's motion artifact. Hyperdense right middle cerebral artery M1 segment. This likely represents acute thrombosis. ASPECTS Score is 10. MR head may be helpful for evaluation of acute ischemic infarct (and there are no contraindications). Thank you for allowing us to participate in the care of your patient. Dictated and Authenticated by: Kong Simmons MD 04/23/2018 6:22 AM Central Time ([place] & [place]) FINAL REPORT HEAD CT WITHOUT CONTRAST: COMPARISON: 04/04/2018. HISTORY: Stroke alert. Left-sided weakness. Slurred speech. FINDINGS: This report is in agreement with the preliminary report by [facility]. There is a hyperdensity along the ri ght M1 segment, with evidence for acute thrombus. POS: [facility]
--- NOTE | 2018-04-23 08:41 | PDOC.PN ---
- Subjective Encounter Start Date: 04/23/18 Encounter Start Time: 08:40 Subjective: Events of early hours of today noted--CVA - Objective Resuscitation Status - Order Detail: 04/14/18 03:13 Resuscitation Status Routine Resuscitation Status: FULL: Full Resuscitation Vital Signs & Weight: Vital Signs (12 hours) Temp Pulse Resp BP BP Pulse Ox 04/23/18 06:54 68 16 172/72 H 04/23/18 06:18 71 20 184/91 H 96 04/23/18 05:38 167/77 H 04/23/18 04:37 96.7 F L 69 20 134/67 98 04/22/18 20:53 99 Weight Weight 129 lb 4.8 oz Most Recent Monitor Data Heart Rate from ECG 72 NIBP 139/69 NIBP BP-Mean 92 Respiration from ECG 19 SpO2 100 I&O: 04/22/18 04/23/18 04/24/18 06:59 06:59 06:59 Intake Total 674.4 1330 Output Total 725 1200 Balance -50.6 130 Result Diagrams: 04/23/18 05:43 04/23/18 05:43 Additional Labs: Accuchecks 04/23/18 05:41 POC Glucose 130 H Phys Exam - Physical Examination Constitutional: NAD HEENT: PERRLA, moist MMs, sclera anicteric, TM's clear Neck: no nodes, no JVD, supple, full ROM Respiratory: no wheezing, no rales, no rhonchi, clear to auscultation bilateral Cardiovascular: no significant murmur, no rub Gastrointestinal: non-tender, no distention, positive bowel sounds Musculoskeletal: pulses present Left hemiplegia Dx/Plan (1) Moderate aortic regurgitation Code(s): I35.1 - NONRHEUMATIC AORTIC (VALVE) INSUFFICIENCY Status: Acute (2) Moderate mitral regurgitation Code(s): I34.0 - NONRHEUMATIC MITRAL (VALVE) INSUFFICIENCY Status: Acute (3) S/P CABG (coronary artery bypass graft) Code(s): Z95.1 - PRESENCE OF AORTOCORONARY BYPASS GRAFT Status: Acute (4) CAD (coronary artery disease) Code(s): I25.10 - ATHSCL HEART DISEASE OF [place] CORONARY ARTERY W/O ANG PCTRS Status: Chronic Comment: (5) Chronic systolic heart failure, ACC/AHA stage C Code(s): I50.22 - CHRONIC SYSTOLIC (CONGESTIVE) HEART FAILURE Status: Chronic (6) H/O malignant neoplasm of breast Code(s): Z85.3 - PERSONAL HISTORY OF MALIGNANT NEOPLASM OF BREAST Status: Chronic (7) Osteoporosis Code(s): M81.0 - AGE-RELATED OSTEOPOROSIS W/O CURRENT PATHOLOGICAL FRACTURE Status: Chronic (8) CVA (cerebrovascular accident) Code(s): I63.9 - CEREBRAL INFARCTION, UNSPECIFIED Status: Acute - Plan plan discussed w/ family, PT/OT, executive secretary social welfare Refused lovenox yesterday -: ?Thrombolysis -Recent surgery may be a contraindication -: CTS aware and following -: CT angio in progress -: Transfer to stroke unit vs ICU * .
[2018-04-23] MEDS: Diltiazem 125 MG in Sodium Chloride 0.9% 100 ML IVPB SCH (08:58)
[2018-04-23] MEDS ORDERED: Heparin 10,000 UNITS/1 ML VIAL ONE (09:28)
[2018-04-23] MEDS ORDERED: Fentanyl 100 MCG/2 ML VIAL ONE (09:55)
[2018-04-23] MEDS ORDERED: Famotidine/PF 20 mg/2ml Vial ONE (09:58)
[2018-04-23] MEDS ORDERED: diphenhydrAMINE 50 MG/ML VIAL ONE (09:58)
[2018-04-23] MEDS ORDERED: Hydrocortisone Sod Succ/PF 100 mg/2 ml Vial ONE (09:58)
--- NOTE | 2018-04-23 10:09 | CT ---
CTA WITH BRAIN PERFUSION: DATE: 04/23/2018. HISTORY: Stroke. FINDINGS: Contrast-enhanced CTA carotid and intracranial CT is performed. Two-D and 3D reconstructed images we re performed. In addition, brain perfusion study was also performed. Images demonstrate an area of increased mean transit time in the posterior right MCA and right occipi rohini regions. There is also associated area of increased blood flow on cerebral blood volume and decr eased flow on the cerebral blood flow in thee same areas. This is concerning for moderate-sized righ t-sided penumbra in the MCA distribution. Bilateral pleural effusions seen. The common carotid arteries bilaterally are patent as are the prox imal internal carotid arteries. There is a filling defect in the distal aspect of the right M1 segment extending into the right M2 se gments. This is concerning for a small area of acute thrombus. Good flow is seen in the left ICA and MCA and [place] vessels. Normal flow is seen in the posterior cere bral circulation. IMPRESSION: Distal right M1 and middle cerebral artery trifurcation filling defect compatible with clot. Finding s compatible with an area of infarction with moderate-sized penumbra. Findings discussed with Dr. Estuardo Dash at 8:48 a.m. on 04/23/2018. CODE CR POS: [facility]
[2018-04-23 10:13] LABS: Bilirubin Negative (Negative); Blood, Urine Trace (Negative); Clarity CLEAR (Clear); Glucose, Urine (Dipstick) Negative (Negative); Leukocyte Negative (Negative); Nitrite Negative (Negative); Protein, Urine (Dipstick) Negative (Neg-Trace); Specific Gravity, Urine 1.013 (1.002-1.036); Urobilinogen 0.2 mg/dL (0.2-1.0); pH, Urine 6.5 (5.0-9.0)
[2018-04-23 10:14] LABS: Bacteria/HPF None Seen HPF (None Seen); Hyaline Casts/LPF 0-3 HYALINE CAST LPF (0-3 Hyaline); RBC/HPF 0-3 HPF (0-3); Squamous Epithelial None Seen HPF (0-3); WBC/HPF None Seen HPF (0-3)
[2018-04-23 10:20] LABS: Urine Culture Reflex No No
--- NOTE | 2018-04-23 10:34 | CON ---
DATE OF CONSULTATION: 04/23/2018 HISTORY OF PRESENT ILLNESS: Ms. Shaffer is a 72-year-old female, status post CABG procedure on the 16 of this month. She was noted this morning to have altered mental status and weakness on the left side. Her last seen normal was also at some point early in the morning hours. She had a noncontrast head CT performed, which was negative for hemorrhage. Hospital was notified us this morning of change in her exam and the head CT. She subsequent to that time had an iodine allergy protocol administered in order to receive a CTA and CT perfusion study. I reviewed those images and discussed them with Kevin Diallo. She has thrombus within the distal aspect of the M1 segment near the trifurcation on the right side. Despite that, she has flow beyond that vessel most likely from collateral flow. Dr. Diallo thought there might be a small area of penumbra in that region. As such, we opted to bring her down to the laborer concrete paving for angiography with potential for mechanical thrombectomy. Given her unknown time of last seen normal and her most recent major operation, she is not a candidate for IV tPA or IA tPA. Job ID: [id number]
[2018-04-23] MEDS ORDERED: SUGAMMADEX SODIUM 200 MG/2 ML VIAL ONE (10:48)
[2018-04-23] MEDS ORDERED: Labetalol HCl 100 MG/20 ML VIAL SLOW IVP PRN (10:51)
[2018-04-23] MEDS ORDERED: Communication Order-Pharmacy FS SCH (10:51)
[2018-04-23] MEDS: Aspirin 325 mg Enteric Coated Tablet PO SCH (12:21)
[2018-04-23] MEDS: Amiodarone 200 MG TAB PO SCH ×3 (12:21→20:53)
[2018-04-23] MEDS: Famotidine 20 MG TAB PO SCH ×2 (12:21→20:55)
[2018-04-23] MEDS: Polyethylene Glycol 3350 17 GM Packet PO SCH (12:21)
[2018-04-23] MEDS ORDERED: Rocuronium Bromide 10 MG/ML (10ML VIAL) ONE (15:43)
[2018-04-23] MEDS ORDERED: Lidocaine 1% PF 5 ML VIAL ONE (15:43)
[2018-04-23] MEDS ORDERED: PROPOFOL 200 MG/20 ML VIAL ONE (15:43)
[2018-04-23] MEDS ORDERED: Esmolol 100 MG/10 ML VIAL ONE (15:43)
[2018-04-23] MEDS ORDERED: ePHEDrine/0.9% NaCl/PF SYRINGE 50 mg/10 ml ONE (15:43)
[2018-04-23] MEDS ORDERED: Iopamidol 370 76% 100 ML VIAL ONE (16:50)
[2018-04-23] MEDS ORDERED: ISOVUE-370 76%-LOCM 1 ML ONE (16:51)
[2018-04-23] MEDS: Atorvastatin Calcium 40 MG TAB PO SCH (20:54)
[2018-04-23] MEDS ORDERED: Enoxaparin Sodium 40 MG/0.4 ML SYRINGE SC SCH (21:00)
[2018-04-24] MEDS: Diltiazem 125 MG in Sodium Chloride 0.9% 100 ML IVPB SCH (03:35)
--- NOTE | 2018-04-24 08:57 | PDOC.PN ---
- Subjective Encounter Start Date: 04/24/18 Encounter Start Time: 08:55 Subjective: confused, thought she was at home - Objective Resuscitation Status - Order Detail: 04/14/18 03:13 Resuscitation Status Routine Resuscitation Status: FULL: Full Resuscitation MAR Reviewed: Yes Vital Signs & Weight: Vital Signs (12 hours) Temp 04/24/18 08:00 98.1 F 04/24/18 04:00 98.5 F 04/24/18 00:00 98.3 F Weight Admit Weight 122 lb 1.6 oz Weight 131 lb 6.328 oz Most Recent Monitor Data Heart Rate from ECG 93 NIBP 126/69 NIBP BP-Mean 88 Respiration from ECG 19 SpO2 95 I&O: 04/23/18 04/24/18 04/25/18 06:59 06:59 06:59 Intake Total 1330 93 Output Total 1200 1515 75 Balance 130 -1422 -75 Result Diagrams: 04/23/18 05:43 04/23/18 05:43 Phys Exam - Physical Examination Neck: no JVD Respiratory: no wheezing Cardiovascular: RRR, no significant murmur 2/6 soft sys murmur Gastrointestinal: soft, positive bowel sounds Musculoskeletal: no edema L spastic hemiplegia Dx/Plan (1) CVA (cerebrovascular accident) Code(s): I63.9 - CEREBRAL INFARCTION, UNSPECIFIED Status: Acute Qualifiers: CVA mechanism: thrombosis Precerebral and cerebral artery: middle cerebral artery Laterality of affected vessel: right Qualified Code(s): I63.311 - Cerebral infarction due to thrombosis of right middle cerebral artery (2) Moderate aortic regurgitation Code(s): I35.1 - NONRHEUMATIC AORTIC (VALVE) INSUFFICIENCY Status: Acute (3) Moderate mitral regurgitation Code(s): I34.0 - NONRHEUMATIC MITRAL (VALVE) INSUFFICIENCY Status: Acute (4) S/P CABG (coronary artery bypass graft) Code(s): Z95.1 - PRESENCE OF AORTOCORONARY BYPASS GRAFT Status: Acute (5) CAD (coronary artery disease) Code(s): I25.10 - ATHSCL HEART DISEASE OF [place] CORONARY ARTERY W/O ANG PCTRS Status: Chronic Qualifiers: Coronary Disease-Associated Artery/Lesion type: [place] artery [place] vs. transplanted heart: [place] heart Associated angina: without angina Qualified Code(s): I25.10 - Atherosclerotic heart disease of [place] coronary artery without angina pectoris Comment: (6) Chronic systolic heart failure, ACC/AHA stage C Code(s): I50.22 - CHRONIC SYSTOLIC (CONGESTIVE) HEART FAILURE Status: Chronic (7) H/O malignant neoplasm of breast Code(s): Z85.3 - PERSONAL HISTORY OF MALIGNANT NEOPLASM OF BREAST Status: Chronic - Plan ASA, statin, PT ,OT -: cardene iv for BP control -: discuss with consultants * .
[2018-04-24] MEDS: Famotidine 20 MG TAB PO SCH ×2 (09:14→20:17)
[2018-04-24] MEDS: Aspirin 81 mg Enteric Coated Tablet PO SCH (09:14)
[2018-04-24] MEDS: Amiodarone 200 MG TAB PO SCH ×2 (09:14→20:17)
[2018-04-24] MEDS: Polyethylene Glycol 3350 17 GM Packet PO SCH (09:14)
[2018-04-24] MEDS: Enoxaparin Sodium 60 MG/0.6 ML SYRINGE SC SCH ×2 (09:15→21:15)
[2018-04-24] MEDS ORDERED: Diltiazem 125 MG in Sodium Chloride 0.9% 100 ML IVPB SCH (10:06)
[2018-04-24 12:22] LABS: Actual Bicarbonate (HCO3a) 22.7 mEq/L (22-28); Analyzer IN Cardio OR; CO2 Tension 27.2 mmHg (35.0-45.0); Calcium, Ionized 1.01 mmol/L (1.12-1.30); Carboxyhemoglobin (COHb) 0.3 gm% (0.0-3.0); Hemoglobin (Hb) 10.6 g/dL (12.0-16.0); O2 Tension (PaO2) 171.5 mmHg (> 70.0); Potassium - ABG Lab 2.86 mmol/L (3.70-5.30); pH, Arterial 7.54 (7.35-7.45)
[2018-04-24 12:23] LABS: Analyzer IN Cardio OR; Base Excess (BEa) 0.9 mEq/L (-2.0 to +3.0); CO2 Tension 43.5 mmHg (35.0-45.0); Calcium, Ionized 0.87 mmol/L (1.12-1.30); Potassium - ABG Lab 3.59 mmol/L (3.70-5.30); pH, Arterial 7.39 (7.35-7.45)
[2018-04-24 12:23] LABS: Actual Bicarbonate (HCO3a) 22.4 mEq/L (22-28); Analyzer IN Cardio OR; Base Excess (BEa) -1.4 mEq/L (-2.0 to +3.0); CO2 Tension 34.5 mmHg (35.0-45.0); Calcium, Ionized 1.01 mmol/L (1.12-1.30); Carboxyhemoglobin (COHb) 0.3 gm% (0.0-3.0); Hemoglobin (Hb) 10.5 g/dL (12.0-16.0); O2 Tension (PaO2) 188.7 mmHg (> 70.0); Potassium - ABG Lab 3.03 mmol/L (3.70-5.30); pH, Arterial 7.43 (7.35-7.45)
[2018-04-24 12:23] LABS: Actual Bicarbonate (HCO3v) 26 mEq/L (22-28); Analyzer IN Cardio OR; Calcium, Ionized 0.89 mmol/L (1.16-1.32); Chloride (ABG LAB) 110 mmol/L (98-106); Potassium - ABG Lab 3.54 mmol/L (3.70-5.30); Sodium 139.4 mmol/L (133-146); pH (venous) 7.38 (7.32-7.43)
[2018-04-24 12:24] LABS: Actual Bicarbonate (HCO3a) 22.2 mEq/L (22-28); Analyzer IN Cardio OR; Base Excess (BEa) -0.5 mEq/L (-2.0 to +3.0); CO2 Tension 31.3 mmHg (35.0-45.0); Calcium, Ionized 1.01 mmol/L (1.12-1.30); O2 Tension (PaO2) 126.7 mmHg (> 70.0); Potassium - ABG Lab 3.23 mmol/L (3.70-5.30); pH, Arterial 7.47 (7.35-7.45)
[2018-04-24 12:24] LABS: Actual Bicarbonate (HCO3a) 21.7 mEq/L (22-28); Analyzer IN Cardio OR; Base Excess (BEa) -1.2 mEq/L (-2.0 to +3.0); CO2 Tension 29.6 mmHg (35.0-45.0); Calcium, Ionized 1.01 mmol/L (1.12-1.30); Carboxyhemoglobin (COHb) 0.3 gm% (0.0-3.0); Hemoglobin (Hb) 8.5 g/dL (12.0-16.0); O2 Tension (PaO2) 139.9 mmHg (> 70.0); Potassium - ABG Lab 3.22 mmol/L (3.70-5.30); pH, Arterial 7.48 (7.35-7.45)
--- NOTE | 2018-04-24 12:40 | CT ---
HEAD CT WITHOUT CONTRAST: HISTORY: Status post thrombectomy. CVA. Right MCA distribution thrombus. COMPARISON: 04/23/2018 FINDINGS: No parenchymal hemorrhage. No extraaxial hematoma. No midline shift. The basilar cisterns are medina nt. There are expected evolutionary changes, compatible with a right MCA distribution infarct. There is hypoattenuation of the right deep conley matter structures, including the lentiform nucleus and the cau date nucleus. Additionally, there are hypodensities in the right temporal and frontal subcortical an d deep white matter. The calvarium is intact. Adequate aeration of the sinuses and mastoid air cells. IMPRESSION: 1. No intracranial hemorrhage. 2. Expected evolutionary changes, compatible with a right middle cerebral artery distribution infarc t. POS: [facility]
[2018-04-24] MEDS ORDERED: Dextrose 5% in Water 1,000 ML IV SCH (12:45)
[2018-04-24] MEDS ORDERED: Dextrose 5% in Water 500 ML IV SCH (12:45)
--- NOTE | 2018-04-24 13:59 | CCL ---
PROCEDURE CEREBRAL ANGIOGRAM WITH MECHANICAL THROMBECTOMY: DATE: 04/23/2018. SURGEON: Dr. Dash. BULLDOZER/LOADER/COMPACTOR/SCRAPER: None. INDICATION: CVA. DIAGNOSIS: Right middle cerebral artery bifurcation thrombus. PROCEDURE: Cerebral angiography with mechanical thrombectomy. ANESTHESIA: General. TECHNIQUE: The patient was brought to the angiogram suite and placed under general anesthesia. She was placed o n the table in the supine position. Both groins were prepped and draped in the usual sterile fashion . 1% Lidocaine was administered and an 8 [place] sheath was placed using a Seldinger technique. An 8 [place] concentric guide catheter was passed over a 130 cm [employer] catheter which was passed over an 0.035 angled glidewire where the right internal carotid artery was selectively catheterized. An A P and lateral angiogram was then performed revealing the presence of thrombus within the distal aspec t of the M1 segment in the right middle cerebral artery. A Trevo device was deployed a total of 1 ti me with complete mormon of blood flow. All catheters were then removed. Hemostasis was maintai shadi with manual compression. The procedure came to an end without known complication. IMPRESSION: The patient underwent successful angiography with mechanical thrombectomy with mormon of all bra nches of the middle cerebral artery. POS: [facility]
--- NOTE | 2018-04-24 17:26 | CON ---
DATE OF CONSULTATION: 04/24/2018 SERVICE: Pulmonary Medicine. REASON FOR CONSULTATION: ICU patient. HISTORY OF PRESENT ILLNESS: The patient is a 72-year-old white female with past medical history significant for coronary artery disease. She presented to the emergency department on the 13 of April with complaints of chest discomfort. Ultimately, she underwent cardiac catheterization and was discovered to have operable disease. On the 18 of April, she underwent a 2-vessel coronary artery bypass graft. She did well in the ICU in the postoperative period and subsequently transitioned to the floor. At that location, she had a stroke alert. She underwent a CTA of the head and neck, and it was discovered that she had a distal right M1 and middle cerebral artery trifurcation filling defect compatible with an acute clot. She underwent a thrombectomy on April 23, 2018. Her deficit during the acute stroke event was left-sided hemiparesis/paresis. Most of her deficit has resolved. I am told that at baseline, she has a little bit of confusion. She denies having any chest pain, fevers, chills, nausea, vomiting, or diarrhea. She is tolerating p.o. Speech pathology looked at her and she is swallowing just fine. Hemodynamics remained stable. She has no specific complaints. She has been in and out of atrial fibrillation, for which she is on full-dose anticoagulation, which I agree with. PAST MEDICAL HISTORY: 1. Breast cancer, stage IV. 2. Anemia. 3. Congestive heart failure. 4. History of stroke. 5. Atrial fibrillation in the postop setting. 6. Coronary artery disease. PAST SURGICAL HISTORY: 1. Right mastectomy. 2. Right cataract surgery. 3. MediPort placement. 4. Appendectomy. 5. Hysterectomy. 6. Tonsillectomy. 7. Thrombectomy of the cerebral artery. 8. Coronary artery bypass graft x2 vessels. SOCIAL HISTORY: Negative for alcohol, tobacco, or illicit drug use. FAMILY HISTORY: Noncontributory. ALLERGIES: ADHESIVE TAPE, ERYTHROMYCIN, IODINE, NICOTINE, DEMEROL, PERCODAN, VANCOMYCIN, X-RAY DYE, AND SULFA. MEDICATIONS: List of her inpatient medications was reviewed. REVIEW OF SYSTEMS: General, head, ears, eyes, nose, throat, cardiovascular, respiratory, GI, , musculoskeletal, neurologic, and skin are negative except as mentioned in the HPI. PHYSICAL EXAMINATION: VITAL SIGNS: Afebrile, pulse 90, blood pressure 139/72, respirations 22, and saturation 97% on room air. GENERAL: The patient is awake and alert, in no apparent distress. LUNGS: Excellent air entry. There is rhonchi present. They clear with cough. No prolonged expiratory phase or wheezing is appreciated. HEART: Normal rate and regular. ABDOMEN: Soft, nontender, and nondistended. Bowel sounds are positive. MUSCULOSKELETAL: No cyanosis or clubbing. There is no pitting in the bilateral lower extremities. NEUROLOGIC: She has very subtle weakness in the left upper extremity compared to the right, but the lower extremity strength is roughly stable. Cranial nerves are intact. No cerebellar findings are appreciated. Sensation was not tested. LABORATORY DATA: WBC 8.6, hemoglobin 10.1, platelets 240,000. INR 1.0. A pH 7.53, pCO2 of 28, pO2 of 233. Basic metabolic profile and liver function studies are essentially unremarkable except for marginally elevated AST and ALT. Troponin is 0.147. Urinalysis is negative. IMAGING STUDIES: 1. CTA of the head demonstrates a right-sided perfusion abnormality. 2. CT of the brain demonstrates no acute intracranial abnormality. 3. Chest x-ray demonstrates stable postoperative changes. There is no acute cardiopulmonary abnormality identified other than a left-sided pleural effusion. There is a right subclavian central venous catheter that terminates in good position. Sternotomy wires in good position. On this film, there was a left- sided chest tube, and mediastinal drain that were in place. Those have subsequently been removed. ASSESSMENT: 1. Acute cerebrovascular accident, status post thrombectomy, postop day #1. 2. Atrial fibrillation, currently on anticoagulation. 3. Coronary artery disease, status post coronary artery bypass graft x2 vessels, postop day #6. 70 minutes have been devoted to this patient in various activities. I personally reviewed all imaging studies and laboratory data noted within this document. For fifty percent of this time, I was interacting with the patient at the bedside or coordinating care with the care team. For the remainder of the time I was immediately available to the patient in the hospital unit. Job ID: [id number] [facility]
[2018-04-24] MEDS: Carvedilol 3.125 MG TAB PO SCH (18:11)
[2018-04-24] MEDS: Apixaban 5 MG TAB PO SCH (20:17)
[2018-04-24] MEDS: Atorvastatin Calcium 40 MG TAB PO SCH (20:17)
[2018-04-24] MEDS ORDERED: Metoprolol Tartrate 25 MG TAB PO SCH (21:00)
[2018-04-24] MEDS: Acetaminophen 325 MG TAB PO PRN (22:40)
--- NOTE | 2018-04-25 08:36 | PRG ---
DATE OF SERVICE: 04/25/2018 SUBJECTIVE: Ms. Shaffer is now 2 days status post mechanical thrombectomy for a right MCA division thrombus with occlusion. She underwent successful mechanical thrombectomy and has improved neurologically. PLAN: The plan from a stroke perspective will be physical therapy, occupational therapy, and inpatient rehab. Job ID: [id number]
[2018-04-25] MEDS: Amiodarone 200 MG TAB PO SCH ×2 (09:16→20:56)
[2018-04-25] MEDS: Famotidine 20 MG TAB PO SCH ×2 (09:16→20:56)
[2018-04-25] MEDS: Polyethylene Glycol 3350 17 GM Packet PO SCH (09:17)
[2018-04-25] MEDS: Aspirin 81 mg Enteric Coated Tablet PO SCH (09:17)
[2018-04-25] MEDS: Apixaban 5 MG TAB PO SCH ×2 (09:17→20:57)
[2018-04-25 09:30] LABS: Puncture Site ALINE
--- NOTE | 2018-04-25 09:33 | PDOC.PN ---
- Subjective Encounter Start Date: 04/25/18 Encounter Start Time: 09:31 Subjective: alert, oriented to person only - Objective Resuscitation Status - Order Detail: 04/14/18 03:13 Resuscitation Status Routine Resuscitation Status: FULL: Full Resuscitation MAR Reviewed: Yes Vital Signs & Weight: Vital Signs (12 hours) Temp 04/25/18 08:00 98.0 F 04/25/18 04:00 98 F 04/25/18 00:00 97.8 F Weight Admit Weight 122 lb 1.6 oz Weight 132 lb 0.91 oz Most Recent Monitor Data Heart Rate from ECG 109 NIBP 149/80 NIBP BP-Mean 103 Respiration from ECG 27 SpO2 94 I&O: 04/24/18 04/25/18 04/26/18 06:59 06:59 06:59 Intake Total 93 994.7 Output Total 1515 1215 45 Balance -1422 -220.3 -45 Result Diagrams: 04/23/18 05:43 04/23/18 05:43 Phys Exam - Physical Examination Neck: no JVD Respiratory: clear to auscultation bilateral Cardiovascular: irregular tachy Gastrointestinal: soft, positive bowel sounds Musculoskeletal: no edema R spastic hemiplegia with inxcreased strenght, fcn over past 24 hrs Dx/Plan (1) CVA (cerebrovascular accident) Code(s): I63.9 - CEREBRAL INFARCTION, UNSPECIFIED Status: Acute Qualifiers: CVA mechanism: thrombosis Precerebral and cerebral artery: middle cerebral artery Laterality of affected vessel: right Qualified Code(s): I63.311 - Cerebral infarction due to thrombosis of right middle cerebral artery (2) Moderate aortic regurgitation Code(s): I35.1 - NONRHEUMATIC AORTIC (VALVE) INSUFFICIENCY Status: Acute (3) Moderate mitral regurgitation Code(s): I34.0 - NONRHEUMATIC MITRAL (VALVE) INSUFFICIENCY Status: Acute (4) S/P CABG (coronary artery bypass graft) Code(s): Z95.1 - PRESENCE OF AORTOCORONARY BYPASS GRAFT Status: Acute (5) CAD (coronary artery disease) Code(s): I25.10 - ATHSCL HEART DISEASE OF [place] CORONARY ARTERY W/O ANG PCTRS Status: Chronic Qualifiers: Coronary Disease-Associated Artery/Lesion type: [place] artery [place] vs. transplanted heart: [place] heart Associated angina: without angina Qualified Code(s): I25.10 - Atherosclerotic heart disease of [place] coronary artery without angina pectoris Comment: (6) Chronic systolic heart failure, ACC/AHA stage C Code(s): I50.22 - CHRONIC SYSTOLIC (CONGESTIVE) HEART FAILURE Status: Chronic (7) H/O malignant neoplasm of breast Code(s): Z85.3 - PERSONAL HISTORY OF MALIGNANT NEOPLASM OF BREAST Status: Chronic (8) Encephalopathy acute Code(s): G93.40 - ENCEPHALOPATHY, UNSPECIFIED Status: Acute - Plan on creg po, diltiazem iv per cardiology -: on amiodarone , eliquis for AF -: start po cardizem, wean off iv * .
[2018-04-25 09:50] LABS: Puncture Site ALINE
[2018-04-25 09:53] LABS: O2 Tension (PaO2) 558.5 mmHg (> 70.0)
[2018-04-25 09:54] LABS: Puncture Site ALINE
[2018-04-25 09:55] LABS: Puncture Site ALINE
[2018-04-25] MEDS ORDERED: Bisacodyl 10 MG SUPP PR PRN (10:20)
[2018-04-25] MEDS ORDERED: Mineral Oil ENEMA PR PRN (10:20)
[2018-04-25] MEDS ORDERED: Acetaminophen 325 MG TAB PO PRN (10:20)
[2018-04-25] MEDS ORDERED: Guaifenesin DM 100-10/5 ML UDCUP PO PRN (10:20)
[2018-04-25] MEDS ORDERED: Bisacodyl 5 MG TAB PO PRN (10:20)
[2018-04-25] MEDS ORDERED: Furosemide 20 MG TAB PO SCH ×2 (10:20→16:15)
[2018-04-25] MEDS ORDERED: Mag-Al 1200 mg/1200 mg/30 ML UDCUP PO PRN (10:20)
[2018-04-25] MEDS ORDERED: Nitroglycerin 0.4 MG TAB (25 Tab Bottle) SL PRN (10:20)
--- NOTE | 2018-04-25 11:49 | PRG ---
DATE OF SERVICE: 04/25/2018 SERVICE: Pulmonary Medicine. INTERVAL HISTORY: The patient is doing fine from respiratory standpoint. Denies any current chest pain, fevers, chills, shortness of breath, nausea, or vomiting. Otherwise, there has been no known change to her condition. She had an uneventful evening. Nursing reports no overnight events. PHYSICAL EXAMINATION: VITAL SIGNS: Afebrile, pulse 119, blood pressure 137/90, respirations 17, saturation 95% on room air. GENERAL: The patient is awake and alert, in no apparent distress. LUNGS: Excellent air entry. There are no crackles, wheezing, or rhonchi present. HEART: Normal rate and regular. ABDOMEN: Soft, nontender, and nondistended. Bowel sounds are positive. MUSCULOSKELETAL: No cyanosis or clubbing. There is no pitting in the bilateral lower extremities. NEUROLOGIC: Grossly nonfocal. IMAGING STUDIES: CT of the head demonstrates no intracranial hemorrhage. Right MCA distribution infarct and expected evolutionary changes are noted. ASSESSMENT: 1. Acute cerebrovascular accident, status post thrombectomy, postoperative day 2. 2. Coronary artery disease, status post coronary artery bypass graft x2 vessels, postoperative day 7. 3. Atrial fibrillation, on anticoagulation. DISCUSSION AND PLAN: The patient is currently stable for transition out of the ICU to the stroke unit. At this point, the patient has no further requirements for inpatient Pulmonary Critical Care opinion, and I will sign off when she leaves this location. Please call with additional questions or concerns moving forward. Job ID: [id number]
[2018-04-25] MEDS: Carvedilol 3.125 MG TAB PO SCH ×3 (16:09→20:57)
[2018-04-25] MEDS ORDERED: Haloperidol Lactate 5 MG/ML VIAL ONE (16:55)
[2018-04-25] MEDS ORDERED: Haloperidol Lactate 5 MG/ML VIAL SLOW IVP PRN (17:02)
[2018-04-25] MEDS: Atorvastatin Calcium 40 MG TAB PO SCH (20:57)
--- NOTE | 2018-04-25 22:13 | EKG ---
Test Reason : CODE GREEN Blood Pressure : / mmHG Vent. Rate : 073 BPM Atrial Rate : 073 BPM P-R Int : 164 ms QRS Dur : 090 ms QT Int : 432 ms P-R-T Axes : 065 -22 000 degrees QTc Int : 475 ms Normal sinus rhythm Possible Left atrial enlargement Septal infarct , age undetermined Abnormal ECG Confirmed by LUNA MEEK M.D. ([id number]) on 04/25/2018 10:12:58 PM Referred By: SANTO Confirmed By:LUNA MEEK M.D.
[2018-04-26 06:18] VITALS: BMI 22.7
--- NOTE | 2018-04-26 08:45 | PDOC.PN ---
- Subjective Encounter Start Date: 04/26/18 Encounter Start Time: 08:43 Subjective: calm this morning - Objective Resuscitation Status - Order Detail: 04/14/18 03:13 Resuscitation Status Routine Resuscitation Status: FULL: Full Resuscitation MAR Reviewed: Yes Vital Signs & Weight: Vital Signs (12 hours) Temp 04/26/18 04:00 98.2 F 04/26/18 00:00 98.2 F Weight Admit Weight 122 lb 1.6 oz Weight 132 lb 7.965 oz Most Recent Monitor Data Heart Rate from ECG 73 NIBP 144/62 NIBP BP-Mean 89 Respiration from ECG 20 SpO2 96 I&O: 04/25/18 04/26/18 04/27/18 06:59 06:59 06:59 Intake Total 994.7 500 Output Total 1215 795 Balance -220.3 -295 Result Diagrams: 04/23/18 05:43 04/23/18 05:43 Phys Exam - Physical Examination Neck: no JVD Respiratory: clear to auscultation bilateral Cardiovascular: RRR, no significant murmur Gastrointestinal: soft, positive bowel sounds Musculoskeletal: no edema minimal residual spasticity on right Dx/Plan (1) CVA (cerebrovascular accident) Code(s): I63.9 - CEREBRAL INFARCTION, UNSPECIFIED Status: Acute Qualifiers: CVA mechanism: thrombosis Precerebral and cerebral artery: middle cerebral artery Laterality of affected vessel: right Qualified Code(s): I63.311 - Cerebral infarction due to thrombosis of right middle cerebral artery (2) Moderate aortic regurgitation Code(s): I35.1 - NONRHEUMATIC AORTIC (VALVE) INSUFFICIENCY Status: Acute (3) Moderate mitral regurgitation Code(s): I34.0 - NONRHEUMATIC MITRAL (VALVE) INSUFFICIENCY Status: Acute (4) S/P CABG (coronary artery bypass graft) Code(s): Z95.1 - PRESENCE OF AORTOCORONARY BYPASS GRAFT Status: Acute (5) CAD (coronary artery disease) Code(s): I25.10 - ATHSCL HEART DISEASE OF [place] CORONARY ARTERY W/O ANG PCTRS Status: Chronic Qualifiers: Coronary Disease-Associated Artery/Lesion type: [place] artery [place] vs. transplanted heart: [place] heart Associated angina: without angina Qualified Code(s): I25.10 - Atherosclerotic heart disease of [place] coronary artery without angina pectoris Comment: (6) Chronic systolic heart failure, ACC/AHA stage C Code(s): I50.22 - CHRONIC SYSTOLIC (CONGESTIVE) HEART FAILURE Status: Chronic (7) H/O malignant neoplasm of breast Code(s): Z85.3 - PERSONAL HISTORY OF MALIGNANT NEOPLASM OF BREAST Status: Chronic (8) Encephalopathy acute Code(s): G93.40 - ENCEPHALOPATHY, UNSPECIFIED Status: Acute - Plan PT/OT cont asa, statin, coreg, diltiazem -: cont eliquis -: rehab pending * .
[2018-04-26] MEDS ORDERED: Furosemide 20 MG TAB PO SCH (09:00)
[2018-04-26] MEDS: Amiodarone 200 MG TAB PO SCH ×2 (09:31→20:40)
[2018-04-26] MEDS: Apixaban 5 MG TAB PO SCH ×2 (09:32→20:40)
[2018-04-26] MEDS: Aspirin 81 mg Enteric Coated Tablet PO SCH (09:33)
[2018-04-26] MEDS: Carvedilol 3.125 MG TAB PO SCH ×3 (09:34→20:41)
[2018-04-26] MEDS: Famotidine 20 MG TAB PO SCH ×2 (09:36→20:40)
[2018-04-26] MEDS: Polyethylene Glycol 3350 17 GM Packet PO SCH (09:41)
--- NOTE | 2018-04-26 10:44 | PQF ---
CLINICAL DOCUMENTATION IMPROVEMENT CLARIFICATION FORM: ICD-10 Updated PLEASE DO AN ADDENDUM TO THE PROGRESS NOTE WITH ANY DOCUMENTATION UPDATES OR ADDITIONS AND CARRY THROUGH TO DC SUMMARY. THANK YOU. DATE: 04/26/18 ATTN: DR. CORBIN Please exercise your independent, professional judgment in responding to the clarification form. Clinical indicators are provided on the bottom of this form for your review Please check appropriate box(s): [ ] Encephalopathy: Type: [ ] Acute [ ] Subacute [ ] Chronic Etiology: [ ] Hypertensive [ ] Metabolic [ ] Toxic [ ] Hepatic with Coma [ ] Hepatic w/o Coma [ ] Hypoxic [ ] Septic [ ] Drug induced: [ ] Unspecified [ ] in the setting of underlying dementia [ ] Other (please specify) [ x ] Transient Alteration of Awareness [ ] Other diagnosis [ ] Unable to determine In addition, please specify: Present on Admission (POA): [ ] Yes [ x] No [ ] Unable to determine For continuity of documentation, please document condition throughout progress notes and discharge summary. Thank You. CLINICAL INDICATORS - SIGNS / SYMPTOMS / LABS PROGRESS NOTE 04/25-04/26: "ACUTE ENCEPHALOPATHY" OCCUPATION THERAPY NOTE 04/24- "PATIENT VERY DISORIENTED AND CONFUSED. SHE KEPT PERSEVERATING ON THE FACT THAT SHE WAS IN HER RV- SHE WOULD CONTINUOUSLY TALK ABOUT HER RV AND OTHER RANDOM TOPICS AND REQUIRED MOD TO MAX CUES TO ATTEND TO TASK." SPEECH THERAPY NOTE 04/25: "WEAKNESS IN ORIENTATION, MENTAL MANIPULATION, ATTENTION RECALL... PATIENT REPORTS FEELING 'DISCONNECTED' THIS AM." RISKS: CVA RECENT SURGERY TREATMENT: HALDOL IV (04/25) BRAIN CT CRITICAL CARE MONITORING NEUROLOGY CONSULT OCCUPATIONAL THERAPY SPEECH THERAPY PHYSICAL THERAPY (This form is maintained as a part of the permanent medical record) 2015 [employer]. All Rights Reserved [email or web address] Office: [phone] [facility] HOSPITALJonelle
--- NOTE | 2018-04-26 12:51 | PRG ---
DATE OF SERVICE: 04/26/2018 SERVICE: Pulmonary Medicine. INTERVAL HISTORY: The patient is doing fine from respiratory standpoint. Breathing comfortably. Denies any current chest pain, fevers, chills, nausea, vomiting, or shortness of breath. She has been able to work with Physical Therapy and actually took several steps today. Her strength is actually much improved. She remains a little bit confused. It is my understanding this is her baseline, but I have not confirmed that with family members. PHYSICAL EXAMINATION: VITAL SIGNS: Afebrile, pulse 92, blood pressure 127/67, respirations 23, and saturation 96% on room air. GENERAL: The patient is awake and alert, in no apparent distress. LUNGS: Excellent air entry. No prolonged expiratory phase or wheezing. HEART: Normal rate and regular. ABDOMEN: Soft, nontender, and nondistended. Bowel sounds are positive. MUSCULOSKELETAL: No cyanosis or clubbing. No pitting in the bilateral lower extremities. NEUROLOGIC: Very subtle upper extremity weakness on the left. Otherwise, nonfocal. ASSESSMENT: 1. Acute cerebrovascular accident, status post thrombectomy, postop day 3. 2. Coronary artery disease, status post coronary artery bypass graft x2 vessels, postop day 8. 3. Atrial fibrillation, on anticoagulation. DISCUSSION AND PLAN: From my perspective, the patient is stable for transition to the stroke unit or for discharge to a retirement facility. Physical Therapy does not believe she will be able to participate in a meaningful way with rehabilitation center. Either way, when she leaves the ICU, she will have no further requirements for inpatient pulmonary critical care opinion, and I will sign off. Please call with additional questions or concerns moving forward. Job ID: [id number]
[2018-04-26] MEDS: Atorvastatin Calcium 40 MG TAB PO SCH (20:40)
--- NOTE | 2018-04-26 23:01 | EKG ---
Test Reason : Blood Pressure : / mmHG Vent. Rate : 070 BPM Atrial Rate : 070 BPM P-R Int : 174 ms QRS Dur : 102 ms QT Int : 448 ms P-R-T Axes : 081 -56 046 degrees QTc Int : 483 ms Normal sinus rhythm Left axis deviation Anteroseptal infarct (cited on or before 23-APR-2018) Abnormal ECG When compared with ECG of 23-APR-2018 06:06, (Unconfirmed) Nonspecific T wave abnormality no longer evident in Inferior leads Confirmed by LUNA MEEK M.D. ([id number]) on 04/26/2018 11:01:27 PM Referred By: SANTO Confirmed By:LUNA MEEK M.D.
[2018-04-27 05:08] LABS: #Eosinphils 0.2 thou/uL (0.0-0.7); #Lymphocytes 0.9 thou/uL (1.20-3.40); #Monocytes 0.6 thou/uL (0.11-0.59); #Neutrophils 7.9 thou/uL (1.40-6.50); %Basophils 0.5 % (0.0-1.0); %Eosinophils 1.9 % (0.0-10.0); %Lymphocytes 9.2 % (21.0-51.0); %Monocytes 6.6 % (0.0-10.0); %Neutrophils 81.9 % (42.0-75.0); Hemoglobin 10.2 g/dL (12.0-16.0); Mean Corpuscular HGB CONC 32.9 g/dL (32.0-36.0); Mean Corpuscular Hemoglobin 31.5 pg (27.0-31.0); Mean Corpuscular Volume 95.6 fL (78.0-98.0); Mean Platelet Volume 6.8 fL (7.4-10.4); Platelet Count 328 thou/uL (130-400); RBC Distribution Width 14.2 % (11.5-14.5); Red Blood Cell (RBC) Count 3.25 mill/uL (4.20-5.40); White Blood Cell (WBC) Count 9.7 thou/uL (4.8-10.8)
[2018-04-27 05:33] LABS: ALT (SGPT) 35 U/L (8-55); AST (SGOT) 26 U/L (5-34); Alkaline Phosphatase 98 U/L (40-150); Anion Gap 12 mmol/L (10-20); BUN (Urea Nitrogen) 10 mg/dL (9.8-20.1); Bilirubin, Total 0.7 mg/dL (0.2-1.2); Calc. Creatinine Clearance 65 mL/min (70-130); Calcium 8.2 mg/dL (7.8-10.44); Carbon Dioxide 27 mmol/L (23-31); Chloride 102 mmol/L (98-107); Estimated GFR-MDRD 79; Globulin 2.1 g/dL (2.4-3.5); Glucose 112 mg/dL (83-110); Potassium 3.3 mmol/L (3.5-5.1); Protein, Total 5.1 g/dL (6.0-8.3); Sodium 138 mmol/L (136-145)
[2018-04-27] MEDS ORDERED: Potassium Chloride 20 MEQ TAB PO SCH (05:45)
[2018-04-27] MEDS ORDERED: Potassium Chloride 8 MEQ TAB PO SCH (08:00)
--- NOTE | 2018-04-27 08:49 | PDOC.PN ---
- Subjective Encounter Start Date: 04/27/18 Encounter Start Time: 08:46 Subjective: alert, no complaints - Objective Resuscitation Status - Order Detail: 04/14/18 03:13 Resuscitation Status Routine Resuscitation Status: FULL: Full Resuscitation MAR Reviewed: Yes Vital Signs & Weight: Vital Signs (12 hours) Temp Pulse Resp BP Pulse Ox 04/27/18 07:50 97.7 F 72 18 151/69 H 96 04/27/18 04:00 98.0 F 79 18 118/61 95 04/27/18 00:00 97.9 F 78 16 121/67 95 Weight Admit Weight 122 lb 1.6 oz Weight 131 lb 11.2 oz Most Recent Monitor Data Heart Rate from ECG 101 NIBP 112/59 NIBP BP-Mean 76 Respiration from ECG 22 SpO2 94 I&O: 04/26/18 04/27/18 04/28/18 06:59 06:59 06:59 Intake Total 500 1503 Output Total 795 100 Balance -295 1403 Result Diagrams: 04/27/18 04:38 04/27/18 04:38 Phys Exam - Physical Examination Neck: no JVD Respiratory: clear to auscultation bilateral Cardiovascular: RRR, no significant murmur Gastrointestinal: soft, positive bowel sounds Musculoskeletal: no edema R spastic hemiplegia, mild Dx/Plan (1) CVA (cerebrovascular accident) Code(s): I63.9 - CEREBRAL INFARCTION, UNSPECIFIED Status: Acute Qualifiers: CVA mechanism: thrombosis Precerebral and cerebral artery: middle cerebral artery Laterality of affected vessel: right Qualified Code(s): I63.311 - Cerebral infarction due to thrombosis of right middle cerebral artery (2) Moderate aortic regurgitation Code(s): I35.1 - NONRHEUMATIC AORTIC (VALVE) INSUFFICIENCY Status: Acute (3) Moderate mitral regurgitation Code(s): I34.0 - NONRHEUMATIC MITRAL (VALVE) INSUFFICIENCY Status: Acute (4) S/P CABG (coronary artery bypass graft) Code(s): Z95.1 - PRESENCE OF AORTOCORONARY BYPASS GRAFT Status: Acute (5) CAD (coronary artery disease) Code(s): I25.10 - ATHSCL HEART DISEASE OF [place] CORONARY ARTERY W/O ANG PCTRS Status: Chronic Qualifiers: Coronary Disease-Associated Artery/Lesion type: [place] artery [place] vs. transplanted heart: [place] heart Associated angina: without angina Qualified Code(s): I25.10 - Atherosclerotic heart disease of [place] coronary artery without angina pectoris Comment: (6) Chronic systolic heart failure, ACC/AHA stage C Code(s): I50.22 - CHRONIC SYSTOLIC (CONGESTIVE) HEART FAILURE Status: Chronic (7) H/O malignant neoplasm of breast Code(s): Z85.3 - PERSONAL HISTORY OF MALIGNANT NEOPLASM OF BREAST Status: Chronic (8) Encephalopathy acute Code(s): G93.40 - ENCEPHALOPATHY, UNSPECIFIED Status: Acute - Plan cont current tx -: cont PT/OT -: DC planning * .
[2018-04-27] MEDS ORDERED: Furosemide 20 MG TAB PO SCH (09:00)
[2018-04-27] MEDS: Aspirin 81 mg Enteric Coated Tablet PO SCH (09:48)
[2018-04-27] MEDS: Carvedilol 3.125 MG TAB PO SCH (09:48)
[2018-04-27] MEDS: Apixaban 5 MG TAB PO SCH (09:48)
[2018-04-27] MEDS: Amiodarone 200 MG TAB PO SCH (09:48)
[2018-04-27] MEDS: Famotidine 20 MG TAB PO SCH (09:49)
[2018-04-27] MEDS: Polyethylene Glycol 3350 17 GM Packet PO SCH (09:49)
[2018-04-27 11:43] VITALS: BP 136/67; TEMP 97.8
--- NOTE | 2018-04-27 13:10 | DIS ---
DATE OF ADMISSION: 04/17/2018 DATE OF DISCHARGE: 04/27/2018 TRANSFER CARE PRIMARY CARE PROVIDER: Danielle Buckley. DISPOSITION: Discharged to [facility]. FINAL DIAGNOSES: 1. Coronary artery disease, status post coronary artery bypass graft. 2. Hypertension. 3. Chronic systolic heart failure. 4. Acute cerebrovascular accident, left middle cerebral artery with right spastic hemiplegia. 5. Atrial fibrillation with rapid ventricular response. 6. Cardiomyopathy, 40% to 45% ejection fraction. 7. Nonsustained ventricular tachycardia. DISCHARGE MEDICATIONS: 1. Tramadol 50 mg p.o. q.6 hours p.r.n. 2. Potassium chloride 8 mEq a day. 3. Lasix 20 mg a day. 4. Pepcid 20 mg twice a day. 5. Diltiazem CD 120 daily. 6. Coreg 3.125 mg t.i.d. 7. Lipitor 40 mg a day. 8. Aspirin 81 mg a day. 9. Eliquis 5 mg twice a day. 10. Amiodarone 400 mg p.o. b.i.d., which will need to be tapered. DIET: Heart healthy. PENDING AT THE TIME OF DISCHARGE: Nothing. CODE STATUS: Full resuscitation. HOSPITAL COURSE: The patient was admitted to the [facility] through [facility] with chest pain. Troponins x3 were negative. Dr. 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 Manjit Ashton. On 04/17/2018, she had a cardiac cath, which revealed 100% occlusion of the circumflex, 60% occlusion, left middle cerebral artery. Dr. Alvarado Rojo was consulted on 04/18/2018. She underwent coronary artery bypass graft x2. The patient was subsequently transferred to coronary care unit. On 04/23/2018, the patient had a sudden change in mental status. She was seen by Dr. Alvarado Dash, Neurosurgery. She was taken to the laboratory technical specialist, which revealed a right middle cerebral artery thrombus. She had a thrombectomy per Dr. Dash. The patient had a right spastic hemiplegia. The patient was treated with aspirin and Eliquis. She has improved dramatically during her hospital stay. At the time of discharge, she is stable. Neurological status has been improving dramatically. She is being transitioned to [facility] facility for continuing physical therapy, occupational therapy, and rehabilitation. She will need follow up in 7 days for her medications, etc. Her amiodarone will require tapering. PERTINENT LABORATORY DURING HER HOSPITAL STAY: Her initial CBC was normal at this time, post-surgery, etc. Her white count is 9.7, hemoglobin 10.2, platelet count 228,000. Her final comprehensive metabolic profile shows only elevated glucose of 112, normal renal function, etc. Her initial comprehensive metabolic profile showed only elevated blood sugar of 144 and AST of 39. Interestingly enough, her cardiac enzymes were normal at all three times. Echocardiogram done on admission showed an EF of 40% to 45%. 35 minutes spent preparing this discharge. Job ID: [id number]
--- NOTE | 2018-04-30 09:55 | PQF ---
KEVIN ARNOLD, MERCEDES C [id number] CLINICAL DOCUMENTATION CLARIFICATION FORM: POST DISCHARGE DATE: 04/30/2018 ATTN: Dr. Pendleton Please exercise your independent, professional judgment in responding to the clarification form. Clinical indicators are provided on the bottom of this form for your review Please check appropriate box(s): [ ] Right Middle Cerebral Artery Thrombus is a postoperative complication related to recent surgery [ x ] Right Middle Cerebral Artery Thrombus is not a postoperative complication related to recent surgery [ ] Other diagnosis (please specify) [ ] Unable to determine In addition, please specify: Present on Admission (POA): [ x ] Yes [ ] No [ ] Unable to determine CLINICAL INDICATORS - SIGNS / SYMPTOMS / LABS Per event note 04/23 Dr. Mcgrath: [facility] called due to new onset left sided weakness. Patient seems to have developed stroke. Patient had CABG a week ago, therefore, TPA is contraindicated. We will proceed with stroke protocol and treat accordingly. Noncontrast head CT: Thrombus within the distal aspect of the M1 segment near the trifurcation on the right side. Per 04/23 consult note : She was noted this morning to have altered mental status and weakness on the left side. RISKS: Status post CABG x 2 on 04/18/2018. TREATMENT: Cerebral angiogram with mechanical thrombectomy on 04/23/2018. (This form is maintained as a part of the permanent medical record) 2014 [employer]. All Rights Reserved [email or web address] [email or web address] [phone] MTDD
== END 2018-04-27 14:15 | DRG 233 ==
LOC: ERS 22:15 → ERHOLD 04-14 00:56 → 2SW 04-14 14:19 → OBSVTOIN 04-17 11:09 → CCU 04-18 06:59 → 2NO 04-20 10:48 → CCU 04-23 10:17 → 2SE 04-26 13:31
PROVIDERS: ADMIT Internal Medicine; ATTEND Internal Medicine
PROC: 4A023N7 Measurement of Cardiac Sampling and Pressure, Left Heart, Percutaneous Approach (ICD-10-PCS; 2018-04-16)
PROC: B2111ZZ Fluoroscopy of Multiple Coronary Arteries using Low Osmolar Contrast (ICD-10-PCS; 2018-04-16)
PROC: B2151ZZ Fluoroscopy of Left Heart using Low Osmolar Contrast (ICD-10-PCS; 2018-04-16)
PROC: 02100Z9 Bypass Coronary Artery, One Artery from Left Internal Mammary, Open Approach (ICD-10-PCS; principal; 2018-04-18)
PROC: 021009W Bypass Coronary Artery, One Artery from Aorta with Autologous Venous Tissue, Open Approach (ICD-10-PCS; 2018-04-18)
PROC: 06BQ4ZZ Excision of Left Saphenous Vein, Percutaneous Endoscopic Approach (ICD-10-PCS; 2018-04-18)
PROC: 5A1221Z Performance of Cardiac Output, Continuous (ICD-10-PCS; 2018-04-18)
PROC: [UNRECOGNIZED PROCEDURE] (2018-04-23)
DX: I25.10 Atherosclerotic heart disease of native coronary artery without angina pectoris (principal); I63.311 Cerebral infarction due to thrombosis of right middle cerebral artery; I50.22 Chronic systolic (congestive) heart failure; I47.2 Ventricular tachycardia; G81.14 Spastic hemiplegia affecting left nondominant side; I11.0 Hypertensive heart disease with heart failure; I48.91 Unspecified atrial fibrillation; I42.9 Cardiomyopathy, unspecified; E78.5 Hyperlipidemia, unspecified; I08.0 Rheumatic disorders of both mitral and aortic valves; M81.0 Age-related osteoporosis without current pathological fracture; E87.6 Hypokalemia; I25.2 Old myocardial infarction; Z85.3 Personal history of malignant neoplasm of breast; Z86.73 Personal history of transient ischemic attack (TIA), and cerebral infarction without residual deficits; Z88.1 Allergy status to other antibiotic agents; Z88.5 Allergy status to narcotic agent; Z88.2 Allergy status to sulfonamides; Z88.8 Allergy status to other drugs, medicaments and biological substances; Z79.82 Long term (current) use of aspirin; Z79.899 Other long term (current) drug therapy; Z90.11 Acquired absence of right breast and nipple
CPT/HCPCS: 0042T; 36415; 36416; 36430; 36596; 70450; 70496; 70498; 71045; 75902; 80048; 80053; 80061; 81001; 82550; 82553; 82805; 83735; 84484; 85025; 85347; 85610; 85730; 86850; 86900; 86901; 93005; 93010; 93306; 93458; 93798; 94002; 94150; 94760; 96360; 96361; 99152; 99153; C1757; C1769; C1887; J0282; J0360; J1160; J1200; J1630; J1642; J1644; J1650; J1720; J1815; J1885; J2001; J2150; J2250; J2405; J2440; J2597; J2704; J2720; J3010; J3370; J3475; J3480; J7050; J7070; J7506; P9016; P9045; Q9966; Q9967; S0017; S0028

== ENCOUNTER 2018-04-28 20:35 | Inpatient (IN) | payer MEDICARE ==
--- NOTE | 2018-04-28 21:28 | RAD ---
LEFT HIP TWO VIEWS: 04/28/18 HISTORY: Fall. Left hip injury. FINDINGS: Joint spaces are preserved. Minimal osteophytosis. No acute fracture or dislocation. IMPRESSION: No acute osseous abnormalities are demonstrated. POS: [facility]
--- NOTE | 2018-04-28 21:34 | RAD ---
RIGHT SHOULDER THREE VIEWS: 04/28/18 HISTORY: Fall, right shoulder injury. FINDINGS: Acromioclavicular and glenohumeral alignment are maintained. No acute fracture or dislocation. Metall ic clips overlie the right axilla. IMPRESSION: No acute osseous abnormalities are demonstrated. POS: [facility]
[2018-04-28 21:36] LABS: #Basophils 0.1 thou/uL (0.0-0.2); #Eosinphils 0.3 thou/uL (0.0-0.7); #Lymphocytes 1.1 thou/uL (1.20-3.40); #Monocytes 0.8 thou/uL (0.11-0.59); #Neutrophils 8.7 thou/uL (1.40-6.50); %Eosinophils 2.6 % (0.0-10.0); %Lymphocytes 10.2 % (21.0-51.0); %Monocytes 7.4 % (0.0-10.0); %Neutrophils 78.8 % (42.0-75.0); Hemoglobin 11.4 g/dL (12.0-16.0); Mean Corpuscular HGB CONC 32.6 g/dL (32.0-36.0); Mean Corpuscular Hemoglobin 31.3 pg (27.0-31.0); Mean Corpuscular Volume 96.1 fL (78.0-98.0); Mean Platelet Volume 6.7 fL (7.4-10.4); Platelet Count 365 thou/uL (130-400); RBC Distribution Width 14.6 % (11.5-14.5); Red Blood Cell (RBC) Count 3.65 mill/uL (4.20-5.40); White Blood Cell (WBC) Count 11.1 thou/uL (4.8-10.8)
[2018-04-28 21:58] LABS: ALT (SGPT) 31 U/L (8-55); AST (SGOT) 26 U/L (5-34); Albumin 3.2 g/dL (3.4-4.8); Alkaline Phosphatase 107 U/L (40-150); Anion Gap 12 mmol/L (10-20); BUN (Urea Nitrogen) 12 mg/dL (9.8-20.1); Bilirubin, Total 0.7 mg/dL (0.2-1.2); Calc. Creatinine Clearance 0 mL/min (70-130); Calcium 8.6 mg/dL (7.8-10.44); Carbon Dioxide 27 mmol/L (23-31); Chloride 101 mmol/L (98-107); Estimated GFR-MDRD 68; Globulin 2.4 g/dL (2.4-3.5); Glucose 117 mg/dL (83-110); Potassium 3.7 mmol/L (3.5-5.1); Protein, Total 5.6 g/dL (6.0-8.3); Sodium 136 mmol/L (136-145)
--- NOTE | 2018-04-28 22:01 | RAD ---
LUMBAR SPINE THREE VIEWS: 04/28/18 HISTORY: Fall. Back pain. FINDINGS: There are five lumbar type vertebrae. Pedicles are intact. Very mild rightward convexed curvature. Ve rtebral body heights and AP alignment are maintained. Osteophytosis throughout the facets. Gas disc p henomenon at several levels. IMPRESSION: Degenerative changes lumbar spine. No evidence of compression fracture. POS: [facility]
--- NOTE | 2018-04-28 22:04 | CT ---
CT HEAD NONCONTRAST: 04/28/18 HISTORY: Fall. Head injury. COMPARISON: 04/24/18. FINDINGS: There is no evidence of acute intracranial hemorrhage or infarct. Edema at the right basal ganglia is similar in appearance to the prior study with effacement of the frontal horn right lateral ventricle . Chronic ischemic small vessel disease is also stable. The visualized paranasal sinuses remain well aerated. IMPRESSION: Stable CT appearance of the head. No acute intracranial abnormalities are demonstrated. POS: [facility]
--- NOTE | 2018-04-28 22:09 | RAD ---
CHEST ONE VIEW: 04/28/18 HISTORY: Fall. Altered mental status. FINDINGS: The cardiac silhouette is magnified and enlarged. Dense opacity at the left lung base obscures the le ft hemidiaphragm. Pulmonary vasculature upper limits of normal. Mediastinum is midline with postopera tive changes. Metallic clips overlie the right axilla. IMPRESSION: Dense left basilar atelectasis is likely related to recent surgery. Other chronic type findings appear stable. POS: [facility]
[2018-04-28 22:25] LABS: CKMB 1.7 ng/mL (0-6.6)
[2018-04-28 23:02] LABS: Bilirubin Negative (Negative); Blood, Urine Large (Negative); Clarity CLOUDY (Clear); Glucose, Urine (Dipstick) Negative (Negative); Leukocyte Large (Negative); Nitrite Negative (Negative); Protein, Urine (Dipstick) Negative (Neg-Trace); Specific Gravity, Urine 1.005 (1.002-1.036)
[2018-04-28 23:04] LABS: Bacteria/HPF 1+ HPF (None Seen); Hyaline Casts/LPF 0-3 HYALINE CAST LPF (0-3 Hyaline); Pathc Cast-AUWi Flag 0.72 (0-2.49); Squamous Epithelial None Seen HPF (0-3)
[2018-04-28] MEDS ORDERED: cefTRIAXone\\ROCEPHIN 2 GM VIAL ONE (23:42)
[2018-04-28] MEDS ORDERED: Aspirin Chewable 81 MG TAB ONE (23:42)
[2018-04-29 01:39] LABS: CKMB 1.8 ng/mL (0-6.6)
[2018-04-29 02:41] VITALS: BMI 20.8
[2018-04-29 04:45] LABS: CKMB 1.5 ng/mL (0-6.6)
[2018-04-29] MEDS ORDERED: Acetaminophen 325 MG TAB PO PRN (08:14)
[2018-04-29] MEDS ORDERED: traMADol HCl 50 MG TAB PO PRN (08:14)
[2018-04-29] MEDS: Amiodarone 200 MG TAB PO SCH ×2 (10:07→21:40)
[2018-04-29] MEDS: Aspirin 81 mg Enteric Coated Tablet PO SCH (10:08)
[2018-04-29] MEDS: Furosemide 20 MG TAB PO SCH (10:08)
[2018-04-29] MEDS: Famotidine 20 MG TAB PO SCH ×2 (10:08→21:40)
[2018-04-29] MEDS: Carvedilol 3.125 MG TAB PO SCH ×3 (10:08→21:40)
[2018-04-29] MEDS: Apixaban 5 MG TAB PO SCH ×2 (10:08→21:40)
--- NOTE | 2018-04-29 11:22 | CT ---
CT CERVICAL SPINE NONCONTRAST: HISTORY: A 72-year-old female status post acute cervical trauma from fall. FINDINGS: There are no jumped or perched facets. There is no evidence of acute fracture. The vertebral body h eights are maintained. There is no prevertebral soft tissue swelling. There are degenerative disc c hanges and facet osteoarthrosis. At the level of the oropharynx, there is effacement of the left carlos a ssopharyngeal sulcus (axial image 28 of 64, series 2). This could be due to apposition of adjacent m ucosal surfaces, but the possibility of a neoplasm in this location is raised. IMPRESSION: 1) Cervical spondylosis. 2) No evidence of acute fracture or acute traumatic subluxation. 3) Effacement of the left oropharynx with soft tissue density. Recommend direct visualization to rul e out neoplasm in that location. CODE T jn R POS: CARYL
[2018-04-29 12:20] LABS: #Basophils 0.1 thou/uL (0.0-0.2); #Eosinphils 0.3 thou/uL (0.0-0.7); #Lymphocytes 1.1 thou/uL (1.20-3.40); #Monocytes 0.9 thou/uL (0.11-0.59); #Neutrophils 10.3 thou/uL (1.40-6.50); %Basophils 0.6 % (0.0-1.0); %Eosinophils 2.5 % (0.0-10.0); %Lymphocytes 8.6 % (21.0-51.0); %Monocytes 6.8 % (0.0-10.0); %Neutrophils 81.7 % (42.0-75.0); Hemoglobin 11.5 g/dL (12.0-16.0); Mean Corpuscular HGB CONC 32.2 g/dL (32.0-36.0); Mean Corpuscular Hemoglobin 30.8 pg (27.0-31.0); Mean Corpuscular Volume 95.5 fL (78.0-98.0); Mean Platelet Volume 6.8 fL (7.4-10.4); Platelet Count 351 thou/uL (130-400); RBC Distribution Width 14.2 % (11.5-14.5); Red Blood Cell (RBC) Count 3.74 mill/uL (4.20-5.40); White Blood Cell (WBC) Count 12.7 thou/uL (4.8-10.8)
[2018-04-29 12:37] LABS: ALT (SGPT) 29 U/L (8-55); AST (SGOT) 24 U/L (5-34); Albumin 3.2 g/dL (3.4-4.8); Alkaline Phosphatase 112 U/L (40-150); Anion Gap 14 mmol/L (10-20); BUN (Urea Nitrogen) 10 mg/dL (9.8-20.1); Bilirubin, Total 0.7 mg/dL (0.2-1.2); Calc. Creatinine Clearance 60 mL/min (70-130); Calcium 8.5 mg/dL (7.8-10.44); Carbon Dioxide 27 mmol/L (23-31); Chloride 103 mmol/L (98-107); Estimated GFR-MDRD 77; Globulin 2.4 g/dL (2.4-3.5); Glucose 102 mg/dL (83-110); Potassium 3.2 mmol/L (3.5-5.1); Protein, Total 5.6 g/dL (6.0-8.3); Sodium 141 mmol/L (136-145)
--- NOTE | 2018-04-29 15:24 | PDOC.EVN ---
Event Note - Event Note Event Note: Chart reviewed. Patient seen. Denies chest pain, shortness of breath, fevers or chills. VSS. S1, S2, RRR Lungs CTA. A/P: UTI: continue antibiotics. Discussed plan of care with SPECTROGRAPH OPERATOR Amparo O'lauren.
--- NOTE | 2018-04-29 17:46 | CON ---
DATE OF CONSULTATION: 04/29/2018 REASON FOR CONSULTATION: Recent CABG. PRIMARY ABSORBER OPERATOR: Dr. Manjit Ashton. HISTORY OF PRESENT ILLNESS: Ms. Shaffer is a very pleasant 72-year-old white female, who comes to the hospital for a fall. She fell, hit her head, and was admitted for this. Family stated that she is not at her baseline and she seems confused. On my evaluation, Ms. Shaffer in fact looks confused. She is only able to give me her name. She thinks it is 1958 and she thinks she is somewhere in [place]. She was admitted to the hospital and evaluated by Dr. Biswas on the 15 of April. At that point, she underwent a heart catheterization, that showed multivessel disease, and Dr. Rojo was consulted, and eventually underwent coronary artery bypass grafting secondary to a severe left main lesion. She was discharged home on the and comes back on the for this fall. She denies any chest pain, tightness, or pressure. PAST MEDICAL HISTORY: 1. Coronary artery disease status post CABG just a week ago. 2. Breast cancer, stage IV. 3. Anemia. 4. History of heart failure. 5. Stroke in the past. 6. Postoperative AFib. SURGICAL HISTORY: 1. Right mastectomy. 2. Right cataract surgery. 3. MediPort placement. 4. Appendectomy. 5. Hysterectomy. 6. Tonsillectomy. 7. CABG x2 as above. 8. Thrombectomy of the cerebral artery segments with acute CVA on the of this month. Surgery was on the . 9. Catheterization was on the . She was in postoperative AFib at that time and has been on blood thinners ever since. SOCIAL HISTORY: No alcohol, tobacco, or drugs. FAMILY HISTORY: Noncontributory. OUTPATIENT MEDICATIONS: 1. Tramadol. 2. Potassium chloride 8 mEq q.a.m. 3. Lasix 20 mg a day. 4. Pepcid 20 mg b.i.d. 5. Coreg 3.125 b.i.d. 6. Lipitor 40 mg nightly. 7. Aspirin 81 a day. 8. Eliquis 5 mg b.i.d. 9. Amiodarone 200 mg b.i.d. 10. Tylenol Extra Strength. ALLERGIES: ERYTHROMYCIN, IODINE, NICOTINE, DEMEROL, PERCODAN, SULFA, VANCOMYCIN, AND ADHESIVES. REVIEW OF SYSTEMS: Unobtainable as the patient is confused. PHYSICAL EXAMINATION: VITAL SIGNS: Temperature 97.3, pulse 144, respiratory rate 20, saturating 96% on room air, and blood pressure 153/83. GENERAL: Awake, alert, and oriented to person only, in no distress. HEENT: Normocephalic and atraumatic. NECK: Supple. LUNGS: Clear. CARDIOVASCULAR: S1 and S2 irregularly irregular. Heart rate in the 140. ABDOMEN: Soft. Positive bowel sounds. EXTREMITIES: Trace edema. SKIN: Warm and dry. LABORATORY DATA: Laboratory work was reviewed. White count of 12, hemoglobin 11, hematocrit 35, and platelet count 351. Coags were reviewed. ABG was reviewed. Chemistry was reviewed. Potassium was 3.2. Normal BUN and creatinine. Troponin is 0.05, 0.06, and 0.05. Albumin of 3.2. UA shows large amount of blood with leukocyte esterase, 7-10 red cells, more than 50 white cells, and 1+ bacteria. Urine culture already positive for Klebsiella and Enterobacter. ASSESSMENT AND PLAN: 1. Urinary tract infection/sepsis. 2. Atrial fibrillation with rapid ventricular response, most likely still postoperative atrial fibrillation, requiring full anticoagulation. 3. Status post manual thrombectomy after an middle cerebral artery stroke. 4. Altered mental status, likely related to sepsis. PLAN: 1. We will start the diltiazem drip to try to slow her down. 2. Continue amiodarone load at 200 mg b.i.d. 3. Treat her urinary tract infection. 4. We will follow. Job ID: [id number]
[2018-04-29] MEDS: Diltiazem 125 MG in Sodium Chloride 0.9% 100 ML IVPB SCH (19:07)
[2018-04-29] MEDS: Atorvastatin Calcium 40 MG TAB PO SCH (21:40)
[2018-04-29] MEDS: cefTRIAXone\\ROCEPHIN 1 GM in Sodium Chloride 0.9% 100 ML IVPB SCH (21:41)
[2018-04-30 06:12] LABS: #Basophils 0.1 thou/uL (0.0-0.2); #Eosinphils 0.3 thou/uL (0.0-0.7); #Lymphocytes 1.1 thou/uL (1.20-3.40); #Monocytes 0.7 thou/uL (0.11-0.59); %Basophils 0.9 % (0.0-1.0); %Eosinophils 3.4 % (0.0-10.0); %Lymphocytes 11.7 % (21.0-51.0); %Monocytes 7.1 % (0.0-10.0); %Neutrophils 76.9 % (42.0-75.0); Hemoglobin 11.6 g/dL (12.0-16.0); Mean Corpuscular HGB CONC 33.3 g/dL (32.0-36.0); Mean Corpuscular Hemoglobin 31.8 pg (27.0-31.0); Mean Corpuscular Volume 95.5 fL (78.0-98.0); Mean Platelet Volume 6.9 fL (7.4-10.4); Platelet Count 342 thou/uL (130-400); RBC Distribution Width 14.4 % (11.5-14.5); Red Blood Cell (RBC) Count 3.66 mill/uL (4.20-5.40); White Blood Cell (WBC) Count 9.1 thou/uL (4.8-10.8)
[2018-04-30 06:40] LABS: ALT (SGPT) 24 U/L (8-55); AST (SGOT) 22 U/L (5-34); Albumin 3.1 g/dL (3.4-4.8); Alkaline Phosphatase 104 U/L (40-150); Anion Gap 11 mmol/L (10-20); BUN (Urea Nitrogen) 11 mg/dL (9.8-20.1); Bilirubin, Total 0.8 mg/dL (0.2-1.2); Calc. Creatinine Clearance 59 mL/min (70-130); Calcium 8.3 mg/dL (7.8-10.44); Carbon Dioxide 29 mmol/L (23-31); Chloride 101 mmol/L (98-107); Estimated GFR-MDRD 76; Globulin 2.3 g/dL (2.4-3.5); Glucose 104 mg/dL (83-110); Protein, Total 5.4 g/dL (6.0-8.3); Sodium 138 mmol/L (136-145)
[2018-04-30] MEDS: Famotidine 20 MG TAB PO SCH ×2 (08:01→21:01)
[2018-04-30] MEDS: Potassium Chloride 8 MEQ TAB PO SCH (08:01)
[2018-04-30] MEDS: Aspirin 81 mg Enteric Coated Tablet PO SCH (08:01)
[2018-04-30] MEDS: Amiodarone 200 MG TAB PO SCH ×2 (08:01→21:01)
[2018-04-30] MEDS: Furosemide 20 MG TAB PO SCH (08:01)
[2018-04-30] MEDS: Apixaban 5 MG TAB PO SCH ×2 (08:01→21:01)
[2018-04-30] MEDS: Carvedilol 3.125 MG TAB PO SCH ×3 (08:01→21:01)
--- NOTE | 2018-04-30 08:41 | HP ---
PRIMARY CARE PROVIDER: Dr. Geoff Phillips. DRY CHARGE PROCESS ATTENDANT: Dr. Shea. CHIEF COMPLAINT: The patient was brought to the emergency room yesterday for an evaluation of a fall. HISTORY OF PRESENT ILLNESS: Per ER notes, the patient stated that her leg went from under her, complaining of pain - bilateral shoulders, low back. The patient reports hitting her head on the floor when she fell. Denies headache. Per the patient's family when interviewed in the emergency room by the ER physician, she appeared altered and was not at her baseline. During exam this morning, she was somnolent, but would awake when prompted. When answer questions, she was oriented x2, knew she was in the hospital, was not sure which one, knew her name and her date, was unsure of how she got to the emergency room yesterday. The patient had multiple x-rays of hip, shoulder, lumbar spine, and chest, which were unremarkable. She had a brain CT yesterday. We added a cervical spine CT today. During the exam yesterday, the patient did have a urinalysis tested, which showed blood, leukocyte esterase, white blood cells greater than 50, TNTC, 1+ bacteria. This was sent off for culture. Antibiotics were started. She also had 3 elevated troponins in the indeterminate range, 0.053, 0.062, 0.053, glucose was 117. Pertinent history, the patient was just discharged from this facility on 04/27/2018 after a 10-day stay. After she was complaining of chest pain on 04/17/2018, she ultimately underwent coronary artery bypass x2. After that, she experienced an acute cerebrovascular accident, left middle cerebral artery with right spastic hemiplegia that was evacuated by Dr. Dash. Dr. Dash removed thrombus in her right middle cerebral artery. She improved dramatically during her hospital stay. At time of discharge, she was stable. Neurologic status had been improving. She was transitioned to a [facility] facility for continued physical therapy, occupational therapy, and rehab. She was started on amiodarone, which will require tapering. Echocardiogram done admission of her previous hospitalization showed an EF of 40% to 45%. Based on altered mental status, UTI in recent admission, the patient was admitted to the observation unit for further management. The patient's case was discussed with Dr. Calderon, and he will be available to see the patient as needed. PAST MEDICAL HISTORY: Includes stage IV breast cancer, anemia, congestive heart failure, [place] x2, stroke x4 was recently admitted for coronary artery bypass x2 vessels and also had a thrombectomy as discussed above. FAMILY HISTORY: Noncontributory to this visit. PAST SURGICAL HISTORY: Includes right mastectomy, right cataract surgery, MediPort placement, appendectomy, hysterectomy, tonsillectomy, bypass artery x2, cathode maker with thrombectomy with the left middle cerebral artery. PSYCHIATRIC HISTORY: None. SOCIAL HISTORY: Denies alcohol use. Denies any illicit drug use or smoking history. ALLERGIES: LISTED ADHESIVES, DEMEROL, ERYTHROMYCIN, IODINE, NICOTINE, PERCODAN, SULFA, VANCOMYCIN, AND DYES. DISCHARGE MEDICATIONS: From several days ago include: 1. Tramadol 50 mg p.o. q.6 hours p.r.n. 2. Potassium chloride 8 mEq daily. 3. Lasix 20 mg daily. 4. Pepcid 20 mg b.i.d. 5. Diltiazem CD 120 daily. 6. Coreg 3.125 mg t.i.d. 7. Lipitor 40 mg daily. 8. Aspirin 81 mg daily. 9. Eliquis 5 mg b.i.d. 10. Amiodarone 400 mg p.o. b.i.d., which will be tapered. REVIEW OF SYSTEMS: This patient is somnolent, but will awake and answer questions. She denies being in any pain. All other systems reviewed and are negative unless mentioned in the HPI. PHYSICAL EXAMINATION: VITAL SIGNS: Temperature 97.9, pulse is 85, respirations 19, SpO2 of 95% on room air, and blood pressure 153/70. CONSTITUTIONAL: The patient appears nontoxic. She is somnolent, but will awake and answer questions. HEENT: Head is atraumatic and normocephalic. Eyes; eyelids are normal to inspection. ENT; mouth exam is normal. Mucous membranes are moist. NECK: Normal range of motion. Trachea is midline. RESPIRATORY/CHEST: No respiratory distress. Breath sounds are clear. There is a well-healing sternotomy scar. Chest movement is symmetrical. CARDIOVASCULAR: Regular heart rate and rhythm. Heart sounds are normal. ABDOMEN: Nontender. No distention. No guarding. BACK: CVA tenderness. Midline tenderness to low back around L2-L3. No step offs. No crepitus. EXTREMITIES: Lower extremity, generalized weakness to bilateral upper extremities, although, she squeeze her hand when requested. Pulses are intact. NEUROLOGIC: She is somnolent, but arousable, knows her name and her date. Does not know exactly where she is, although, she does know she is in the hospital. RADIOLOGY INTERPRETATION: Head CT, no acute intracranial process. Back, lumbar spine negative. Chest, dense left basilar atelectasis, likely related to recent surgery. Other chronic type findings are appear stable. Upper extremity, right shoulder, no fracture, no acute findings. Lower extremity, hip films are negative on the left, no fracture. EKG, beats per minute 81 with no ectopics, has an incomplete right bundle branch block. [place] is left. PERTINENT LABORATORY DATA: White blood cell count 11.1, hemoglobin 11.4, hematocrit is 35.1, platelet count is 365. Glucose is 117. Electrolytes; sodium 136, potassium 3.7, gap is 12, creatinine is 0.82, estimated GFR 68. AST, ALT, and alkaline phosphatase all unremarkable. Three troponins in the indeterminate range; 0.053, 0.062, 0.058. Albumin 3.2. Urine, positive for blood, leukocyte esterase, red blood cells, white blood cells, and bacteria +1. ASSESSMENT AND PLAN: 1. Altered mental status, most likely related to urinary tract infection, being treated with Rocephin IV piggyback. 2. Elevated troponins, most likely related to recent bypass surgery. We will ask Cardiology to consult. 3. Hypertension. We will monitor. Restart home medications. 4. Congestive heart failure. We will restart Lasix. We will repeat labs and again asked Cardiology to consult. 5. Deep venous thrombosis prophylaxis is unnecessary as she is on Eliquis. She is also on Pepcid b.i.d. for gastrointestinal prophylaxis. 6. Hospital course will be dependent on clinical findings. Job ID: [id number]
--- NOTE | 2018-04-30 13:24 | PDOC.PN ---
- Subjective Encounter Start Date: 04/30/18 Encounter Start Time: 13:24 Subjective: Feeling better, right lower extremity pain, where she fell down - Objective Vital Signs & Weight: Vital Signs (12 hours) Temp Pulse Resp BP Pulse Ox 04/30/18 11:45 98.6 F 72 19 124/60 94 L 04/30/18 07:48 97.8 F 75 18 139/61 95 04/30/18 04:02 97.6 F 81 14 119/56 L 95 Weight Weight 125 lb 6.4 oz I&O: 04/29/18 04/30/18 05/01/18 06:59 06:59 06:59 Intake Total 300 392 Output Total 1000 1700 950 Balance -564 -2761 -191 Result Diagrams: 04/30/18 05:56 04/30/18 05:56 Phys Exam - Physical Examination HEENT: PERRLA, moist MMs, sclera anicteric, TM's clear, oral pharynx no lesions , 2+ tonsils Neck: no nodes, no JVD, supple, full ROM Respiratory: no wheezing, no rales, no rhonchi Cardiovascular: RRR, no significant murmur, no rub Gastrointestinal: soft, non-tender, no distention, positive bowel sounds Musculoskeletal: no edema, pulses present Neurological: non-focal, normal sensation limited moveemnt of the right leg with pain Psychiatric: normal affect Deviation from normal: oriented X 2 Dx/Plan (1) UTI (urinary tract infection) Status: Acute Qualifiers: Urinary tract infection type: acute cystitis Comment: kLEBSIELLA, CONTINUE ROCEWPHIN, PANSENSITIVE. (2) Fall Code(s): W19.XXXA - UNSPECIFIED FALL, INITIAL ENCOUNTER Status: Acute Qualifiers: Encounter type: initial encounter Qualified Code(s): W19.XXXA - Unspecified fall, initial encounter Comment: Xray of hip, shoulder, spine, CT of head and spine with no acute abnormality. Requested PT. Recent CVA requiring thrombectomy of right middle cerebral artery. (3) Metabolic encephalopathy Code(s): G93.41 - METABOLIC ENCEPHALOPATHY Status: Acute Comment: UTI related, S/P fall, surgery etc, getting better (4) S/P CABG x 2 Code(s): Z95.1 - PRESENCE OF AORTOCORONARY BYPASS GRAFT Status: Acute (5) CAD (coronary artery disease) Code(s): I25.10 - ATHSCL HEART DISEASE OF [place] CORONARY ARTERY W/O ANG PCTRS Status: Chronic Qualifiers: Coronary Disease-Associated Artery/Lesion type: [place] artery [place] vs. transplanted heart: [place] heart Associated angina: without angina Qualified Code(s): I25.10 - Atherosclerotic heart disease of [place] coronary artery without angina pectoris Comment: S/P CABG x 2, RECENTLY (6) Chronic systolic heart failure, ACC/AHA stage C Code(s): I50.22 - CHRONIC SYSTOLIC (CONGESTIVE) HEART FAILURE Status: Chronic Comment: continue Lasix (7) Afib Code(s): I48.91 - UNSPECIFIED ATRIAL FIBRILLATION Status: Acute Comment: continue home meds, eliquis - Plan cont current plan of care, continue antibiotics, PT/OT, out of bed/ambulate DVT prophylaxis with Eliquis * .
[2018-04-30] MEDS: Diltiazem 125 MG in Sodium Chloride 0.9% 100 ML IVPB SCH (16:31)
[2018-04-30] MEDS: Atorvastatin Calcium 40 MG TAB PO SCH (21:00)
[2018-04-30] MEDS: cefTRIAXone\\ROCEPHIN 1 GM in Sodium Chloride 0.9% 100 ML IVPB SCH (21:01)
[2018-05-01 07:51] LABS: #Eosinphils 0.2 thou/uL (0.0-0.7); #Lymphocytes 0.9 thou/uL (1.20-3.40); #Monocytes 0.6 thou/uL (0.11-0.59); #Neutrophils 5.7 thou/uL (1.40-6.50); %Basophils 0.6 % (0.0-1.0); %Eosinophils 3.2 % (0.0-10.0); %Lymphocytes 12.1 % (21.0-51.0); %Neutrophils 76.1 % (42.0-75.0); Hemoglobin 11.7 g/dL (12.0-16.0); Mean Corpuscular Hemoglobin 30.4 pg (27.0-31.0); Mean Corpuscular Volume 95.1 fL (78.0-98.0); Mean Platelet Volume 7.2 fL (7.4-10.4); Platelet Count 351 thou/uL (130-400); RBC Distribution Width 14.3 % (11.5-14.5); Red Blood Cell (RBC) Count 3.84 mill/uL (4.20-5.40); White Blood Cell (WBC) Count 7.5 thou/uL (4.8-10.8)
[2018-05-01] MEDS: Carvedilol 3.125 MG TAB PO SCH ×2 (08:16→13:57)
[2018-05-01] MEDS: Potassium Chloride 8 MEQ TAB PO SCH (08:16)
[2018-05-01] MEDS: Aspirin 81 mg Enteric Coated Tablet PO SCH (08:16)
[2018-05-01] MEDS: Amiodarone 200 MG TAB PO SCH ×2 (08:16→21:18)
[2018-05-01] MEDS: Apixaban 5 MG TAB PO SCH ×2 (08:16→21:18)
[2018-05-01] MEDS: Famotidine 20 MG TAB PO SCH ×2 (08:16→21:19)
[2018-05-01] MEDS: Furosemide 20 MG TAB PO SCH (08:17)
[2018-05-01 08:29] LABS: ALT (SGPT) 23 U/L (8-55); AST (SGOT) 21 U/L (5-34); Albumin 3.2 g/dL (3.4-4.8); Alkaline Phosphatase 105 U/L (40-150); Anion Gap 15 mmol/L (10-20); BUN (Urea Nitrogen) 12 mg/dL (9.8-20.1); Bilirubin, Total 0.7 mg/dL (0.2-1.2); Calc. Creatinine Clearance 63 mL/min (70-130); Calcium 8.5 mg/dL (7.8-10.44); Carbon Dioxide 26 mmol/L (23-31); Chloride 102 mmol/L (98-107); Estimated GFR-MDRD 80; Globulin 2.3 g/dL (2.4-3.5); Glucose 92 mg/dL (83-110); Potassium 3.1 mmol/L (3.5-5.1); Protein, Total 5.5 g/dL (6.0-8.3); Sodium 140 mmol/L (136-145)
[2018-05-01] MEDS ORDERED: Potassium Chloride 20 MEQ TAB PO SCH (12:15)
--- NOTE | 2018-05-01 14:23 | PDOC.PN ---
- Subjective Encounter Start Date: 05/01/18 Encounter Start Time: 14:21 Subjective: feels well.denies any CP/SOB -: in and out of a-fib per monitor - Objective MAR Reviewed: Yes Vital Signs & Weight: Vital Signs (12 hours) Temp Pulse Pulse Pulse Resp BP BP 05/01/18 12:02 98.0 F 73 16 05/01/18 11:24 98.4 F 73 18 05/01/18 10:47 72 72 150/71 H 139/58 L 05/01/18 07:39 75 18 05/01/18 04:19 98.1 F 72 17 BP Pulse Ox Pulse Ox Pulse Ox 05/01/18 12:02 149/67 H 96 05/01/18 11:24 130/64 96 05/01/18 10:47 96 93 L 05/01/18 07:39 128/62 05/01/18 04:19 149/67 H 96 Weight Weight 125 lb 9.6 oz I&O: 04/30/18 05/01/18 05/02/18 06:59 06:59 06:59 Intake Total 392 1060 Output Total 1700 2725 Balance -8448 -3672 Result Diagrams: 05/01/18 06:30 05/01/18 06:30 Additional Labs: Microbiology 04/28/18 22:25 Urine voided Urine Culture - Final Klebsiella pneumoniae ssp pneu Laboratory Tests 04/28/18 04/28/18 04/29/18 21:26 21:26 00:49 WBC 11.1 H Troponin I 0.053 H 0.062 H 04/29/18 04/29/18 04/30/18 03:56 12:09 05:56 WBC 12.7 H 9.1 Troponin I 0.058 H 05/01/18 06:30 WBC 7.5 Troponin I Phys Exam - Physical Examination Constitutional: NAD HEENT: PERRLA, moist MMs, sclera anicteric, oral pharynx no lesions Neck: no nodes, no JVD, supple, full ROM Respiratory: no wheezing, no rales, no rhonchi, clear to auscultation bilateral Cardiovascular: RRR, no significant murmur Gastrointestinal: soft, non-tender, no distention, positive bowel sounds Musculoskeletal: no edema, pulses present Neurological: non-focal, normal sensation, moves all 4 limbs Psychiatric: normal affect, A&O x 3 Skin: no rash Dx/Plan (1) UTI (urinary tract infection) Status: Acute Qualifiers: Urinary tract infection type: acute cystitis Comment: kLEBSIELLA, CONTINUE ROCEPHIN, PANSENSITIVE. (2) Afib Code(s): I48.91 - UNSPECIFIED ATRIAL FIBRILLATION Status: Acute Comment: continue home meds, eliquis (3) Metabolic encephalopathy Code(s): G93.41 - METABOLIC ENCEPHALOPATHY Status: Resolved Comment: UTI related, S/P fall, surgery etc, getting better (4) Fall Code(s): W19.XXXA - UNSPECIFIED FALL, INITIAL ENCOUNTER Status: Acute Qualifiers: Encounter type: initial encounter Qualified Code(s): W19.XXXA - Unspecified fall, initial encounter Comment: Xray of hip, shoulder, spine, CT of head and spine with no acute abnormality. Requested PT. Recent CVA requiring thrombectomy of right middle cerebral artery. (5) S/P CABG x 2 Code(s): Z95.1 - PRESENCE OF AORTOCORONARY BYPASS GRAFT Status: Acute (6) Moderate aortic regurgitation Code(s): I35.1 - NONRHEUMATIC AORTIC (VALVE) INSUFFICIENCY Status: Acute (7) Moderate mitral regurgitation Code(s): I34.0 - NONRHEUMATIC MITRAL (VALVE) INSUFFICIENCY Status: Acute (8) CAD (coronary artery disease) Code(s): I25.10 - ATHSCL HEART DISEASE OF [place] CORONARY ARTERY W/O ANG PCTRS Status: Chronic Qualifiers: Coronary Disease-Associated Artery/Lesion type: [place] artery [place] vs. transplanted heart: [place] heart Associated angina: without angina Qualified Code(s): I25.10 - Atherosclerotic heart disease of [place] coronary artery without angina pectoris Comment: S/P CABG x 2, RECENTLY (9) Chronic systolic heart failure, ACC/AHA stage C Code(s): I50.22 - CHRONIC SYSTOLIC (CONGESTIVE) HEART FAILURE Status: Chronic Comment: continue Lasix (10) H/O malignant neoplasm of breast Code(s): Z85.3 - PERSONAL HISTORY OF MALIGNANT NEOPLASM OF BREAST Status: Chronic (11) Osteoporosis Code(s): M81.0 - AGE-RELATED OSTEOPOROSIS W/O CURRENT PATHOLOGICAL FRACTURE Status: Chronic - Plan DVT proph w/SCDs stop Cardiazem drip.increase coreg to 6.25 bid from 3.125 TID -: HR and BP controlled -: placement when arranged. -: PO abx for DC -: HD stable. * . Review of Systems - Review of Systems Constitutional: negative: fever, chills, sweats, weakness, malaise, other ENT: negative: Ear Pain, Ear Discharge, Nose Pain, Nose Discharge, Nose Congestion, Mouth Pain, Mouth Swelling, Throat Pain, Throat Swelling, Other Respiratory: negative: Cough, Dry, Shortness of Breath, Hemoptysis, SOB with Excertion, Pleuritic Pain, Sputum, Wheezing Cardiovascular: negative: chest pain, palpitations, orthopnea, paroxysmal nocturnal dyspnea, edema, light headedness, other Gastrointestinal: negative: Nausea, Vomiting, Abdominal Pain, Diarrhea, Constipation, Melena, Hematochezia, Other Genitourinary: negative: Dysuria, Frequency, Incontinence, Hematuria, Retention , Other Musculoskeletal: negative: Neck Pain, Shoulder Pain, Arm Pain, Back Pain, Hand Pain, Leg Pain, Foot Pain, Other Neurological: negative: Weakness, Numbness, Incoordination, Change in Speech, Confusion, Seizures, Other - Medications/Allergies Allergies/Adverse Reactions: Allergies Allergy/AdvReac Type Severity Reaction Status Date / Time adhesive Allergy Verified 04/29/18 02:22 adhesive tape Allergy Verified 04/29/18 02:22 erythromycin base Allergy Verified 04/29/18 02:22 iodine Allergy Verified 04/29/18 02:22 nicotine Allergy Verified 04/29/18 02:22 DEMEROL Allergy Uncoded 04/14/18 14:55 PERCODAN Allergy Uncoded 04/14/18 14:55 SULFA Allergy Uncoded 04/14/18 14:55 VANCOMYCIN Allergy Uncoded 04/14/18 14:55 XRAY DYE Allergy Uncoded 04/14/18 14:55 Medications: Current Medications Acetaminophen (Tylenol) 650 mg PO Q6H PRN PRN Reason: Headache/Fever or Pain Last Admin: 04/29/18 23:57 Dose: 650 mg Amiodarone HCl (Cordarone) 200 mg PO BID [facility] Last Admin: 05/01/18 08:16 Dose: 200 mg Apixaban (Eliquis) 5 mg PO BID [facility] Last Admin: 05/01/18 08:16 Dose: 5 mg Aspirin (Ecotrin) 81 mg PO DAILY [facility] Last Admin: 05/01/18 08:16 Dose: 81 mg Atorvastatin Calcium (Lipitor) 40 mg PO HS [facility] Last Admin: 04/30/18 21:00 Dose: 40 mg Carvedilol (Coreg) 3.125 mg PO TID [facility] Last Admin: 05/01/18 13:57 Dose: 3.125 mg Famotidine (Pepcid) 20 mg PO BID [facility] Last Admin: 05/01/18 08:16 Dose: 20 mg Furosemide (Lasix) 20 mg PO DAILY [facility] Last Admin: 05/01/18 08:17 Dose: 20 mg Ceftriaxone Sodium 1 gm/ (Sodium Chloride) 100 mls @ 200 mls/hr IVPB Q24HR [facility] Last Admin: 04/30/18 21:01 Dose: 100 mls Diltiazem HCl 125 mg/ Sodium (Chloride) 125 mls @ 5 mls/hr IVPB INF DODIE; Protocol Last Admin: 04/30/18 16:31 Dose: 125 mls Potassium Chloride (Slow-K 8 Meq) 8 meq PO QAM-WM [facility] Last Admin: 05/01/18 08:16 Dose: 8 meq Sodium Chloride (Flush - Normal Saline) 10 ml IVF Q12HR [facility] Last Admin: 05/01/18 08:17 Dose: 10 ml Sodium Chloride (Flush - Normal Saline) 10 ml IVF PRN PRN PRN Reason: Saline Flush Tramadol HCl (Ultram) 50 mg PO Q6H PRN PRN Reason: Pain
[2018-05-01] MEDS: Atorvastatin Calcium 40 MG TAB PO SCH (21:18)
[2018-05-01] MEDS: Carvedilol 6.25 MG TAB PO SCH (21:18)
[2018-05-01] MEDS: cefTRIAXone\\ROCEPHIN 1 GM in Sodium Chloride 0.9% 100 ML IVPB SCH (21:19)
[2018-05-02 05:16] LABS: #Eosinphils 0.3 thou/uL (0.0-0.7); #Monocytes 0.8 thou/uL (0.11-0.59); #Neutrophils 5.4 thou/uL (1.40-6.50); %Basophils 0.5 % (0.0-1.0); %Eosinophils 3.5 % (0.0-10.0); %Lymphocytes 13.1 % (21.0-51.0); %Monocytes 10.2 % (0.0-10.0); %Neutrophils 72.6 % (42.0-75.0); Mean Corpuscular HGB CONC 33.1 g/dL (32.0-36.0); Mean Corpuscular Hemoglobin 31.9 pg (27.0-31.0); Mean Corpuscular Volume 96.5 fL (78.0-98.0); Mean Platelet Volume 7.1 fL (7.4-10.4); Platelet Count 331 thou/uL (130-400); RBC Distribution Width 14.6 % (11.5-14.5); Red Blood Cell (RBC) Count 3.45 mill/uL (4.20-5.40); White Blood Cell (WBC) Count 7.5 thou/uL (4.8-10.8)
[2018-05-02 05:43] LABS: ALT (SGPT) 20 U/L (8-55); AST (SGOT) 18 U/L (5-34); Alkaline Phosphatase 99 U/L (40-150); Anion Gap 13 mmol/L (10-20); BUN (Urea Nitrogen) 10 mg/dL (9.8-20.1); Bilirubin, Total 0.5 mg/dL (0.2-1.2); Calc. Creatinine Clearance 63 mL/min (70-130); Calcium 8.3 mg/dL (7.8-10.44); Carbon Dioxide 26 mmol/L (23-31); Chloride 103 mmol/L (98-107); Estimated GFR-MDRD 80; Globulin 2.3 g/dL (2.4-3.5); Glucose 100 mg/dL (83-110); Potassium 3.9 mmol/L (3.5-5.1); Protein, Total 5.3 g/dL (6.0-8.3); Sodium 138 mmol/L (136-145)
[2018-05-02] MEDS: Potassium Chloride 8 MEQ TAB PO SCH (08:59)
[2018-05-02] MEDS: Amiodarone 200 MG TAB PO SCH (08:59)
[2018-05-02] MEDS: Carvedilol 6.25 MG TAB PO SCH (08:59)
[2018-05-02] MEDS: Furosemide 20 MG TAB PO SCH (08:59)
[2018-05-02] MEDS: Famotidine 20 MG TAB PO SCH (08:59)
[2018-05-02] MEDS: Apixaban 5 MG TAB PO SCH (08:59)
[2018-05-02] MEDS: Aspirin 81 mg Enteric Coated Tablet PO SCH (08:59)
[2018-05-02] MEDS ORDERED: Lisinopril 2.5 MG TAB PO SCH (09:00)
--- NOTE | 2018-05-02 11:09 | PDOC.PN ---
- Subjective Encounter Start Date: 05/02/18 Encounter Start Time: 11:07 Subjective: no On events. feelw well. -: very forgetful - Objective MAR Reviewed: Yes Vital Signs & Weight: Vital Signs (12 hours) Temp Pulse Resp BP BP Pulse Ox 05/02/18 08:59 125/63 05/02/18 08:58 76 125/63 05/02/18 08:00 97.5 F L 73 16 125/63 97 05/02/18 04:00 97.4 F L 75 18 128/76 98 05/02/18 00:00 97.5 F L 80 18 121/65 99 Weight Weight 125 lb 9.6 oz I&O: 05/01/18 05/02/18 05/03/18 06:59 06:59 06:59 Intake Total 1060 480 360 Output Total 2725 Balance -1665 480 360 Result Diagrams: 05/02/18 04:41 05/02/18 04:41 Additional Labs: Microbiology 04/28/18 22:25 Urine voided Urine Culture - Final Klebsiella pneumoniae ssp pneu Phys Exam - Physical Examination Constitutional: NAD HEENT: PERRLA, moist MMs, sclera anicteric, oral pharynx no lesions Neck: no nodes, no JVD, supple, full ROM Respiratory: no wheezing, no rales, no rhonchi, clear to auscultation bilateral Cardiovascular: no significant murmur, no rub, irregular Gastrointestinal: soft, non-tender, no distention Musculoskeletal: no edema, pulses present Neurological: non-focal, normal sensation, moves all 4 limbs Psychiatric: normal affect, A&O x 3 Dx/Plan (1) UTI (urinary tract infection) Status: Acute Qualifiers: Urinary tract infection type: acute cystitis Comment: kLEBSIELLA, CONTINUE ROCEPHIN, PANSENSITIVE. (2) Afib Code(s): I48.91 - UNSPECIFIED ATRIAL FIBRILLATION Status: Acute Comment: continue home meds, eliquis.cardiazem drip stopped. Cporeg increased with good rate control (3) Metabolic encephalopathy Code(s): G93.41 - METABOLIC ENCEPHALOPATHY Status: Resolved Comment: UTI related, S/P fall, surgery etc, getting better (4) Fall Code(s): W19.XXXA - UNSPECIFIED FALL, INITIAL ENCOUNTER Status: Acute Qualifiers: Encounter type: initial encounter Qualified Code(s): W19.XXXA - Unspecified fall, initial encounter Comment: Xray of hip, shoulder, spine, CT of head and spine with no acute abnormality. Requested PT. Recent CVA requiring thrombectomy of right middle cerebral artery. (5) S/P CABG x 2 Code(s): Z95.1 - PRESENCE OF AORTOCORONARY BYPASS GRAFT Status: Acute (6) Moderate aortic regurgitation Code(s): I35.1 - NONRHEUMATIC AORTIC (VALVE) INSUFFICIENCY Status: Acute (7) Moderate mitral regurgitation Code(s): I34.0 - NONRHEUMATIC MITRAL (VALVE) INSUFFICIENCY Status: Acute (8) CAD (coronary artery disease) Code(s): I25.10 - ATHSCL HEART DISEASE OF THREE AFFILIATED CORONARY ARTERY W/O ANG PCTRS Status: Chronic Qualifiers: Coronary Disease-Associated Artery/Lesion type: [place] artery [place] vs. transplanted heart: [place] heart Associated angina: without angina Qualified Code(s): I25.10 - Atherosclerotic heart disease of [place] coronary artery without angina pectoris Comment: S/P CABG x 2, RECENTLY (9) Chronic systolic heart failure, ACC/AHA stage C Code(s): I50.22 - CHRONIC SYSTOLIC (CONGESTIVE) HEART FAILURE Status: Chronic Comment: continue Lasix (10) H/O malignant neoplasm of breast Code(s): Z85.3 - PERSONAL HISTORY OF MALIGNANT NEOPLASM OF BREAST Status: Chronic (11) Osteoporosis Code(s): M81.0 - AGE-RELATED OSTEOPOROSIS W/O CURRENT PATHOLOGICAL FRACTURE Status: Chronic - Plan DVT proph w/SCDs rady for Dc to rehab.awaiting approval -: cont meds as below. -: PO ABx when DC. -: HD stable * . Review of Systems - Review of Systems Constitutional: negative: fever, chills, sweats, weakness, malaise, other ENT: negative: Ear Pain, Ear Discharge, Nose Pain, Nose Discharge, Nose Congestion, Mouth Pain, Mouth Swelling, Throat Pain, Throat Swelling, Other Respiratory: negative: Cough, Dry, Shortness of Breath, Hemoptysis, SOB with Excertion, Pleuritic Pain, Sputum, Wheezing Cardiovascular: negative: chest pain, palpitations, orthopnea, paroxysmal nocturnal dyspnea, edema, light headedness, other Gastrointestinal: negative: Nausea, Vomiting, Abdominal Pain, Diarrhea, Constipation, Melena, Hematochezia, Other Genitourinary: negative: Dysuria, Frequency, Incontinence, Hematuria, Retention , Other Neurological: negative: Weakness, Numbness, Incoordination, Change in Speech, Confusion, Seizures, Other - Medications/Allergies Allergies/Adverse Reactions: Allergies Allergy/AdvReac Type Severity Reaction Status Date / Time adhesive Allergy Verified 04/29/18 02:22 adhesive tape Allergy Verified 04/29/18 02:22 erythromycin base Allergy Verified 04/29/18 02:22 iodine Allergy Verified 04/29/18 02:22 nicotine Allergy Verified 04/29/18 02:22 DEMEROL Allergy Uncoded 04/14/18 14:55 PERCODAN Allergy Uncoded 04/14/18 14:55 SULFA Allergy Uncoded 04/14/18 14:55 VANCOMYCIN Allergy Uncoded 04/14/18 14:55 XRAY DYE Allergy Uncoded 04/14/18 14:55 Medications: Current Medications Acetaminophen (Tylenol) 650 mg PO Q6H PRN PRN Reason: Headache/Fever or Pain Last Admin: 04/29/18 23:57 Dose: 650 mg Amiodarone HCl (Cordarone) 200 mg PO BID PENDING SALE TO [facility] Last Admin: 05/02/18 08:59 Dose: 200 mg Apixaban (Eliquis) 5 mg PO BID PENDING SALE TO [facility] Last Admin: 05/02/18 08:59 Dose: 5 mg Aspirin (Ecotrin) 81 mg PO DAILY PENDING SALE TO [facility] Last Admin: 05/02/18 08:59 Dose: 81 mg Atorvastatin Calcium (Lipitor) 40 mg PO HS PENDING SALE TO [facility] Last Admin: 05/01/18 21:18 Dose: 40 mg Carvedilol (Coreg) 6.25 mg PO BID PENDING SALE TO [facility] Last Admin: 05/02/18 08:59 Dose: 6.25 mg Famotidine (Pepcid) 20 mg PO BID PENDING SALE TO [facility] Last Admin: 05/02/18 08:59 Dose: 20 mg Furosemide (Lasix) 20 mg PO DAILY PENDING SALE TO [facility] Last Admin: 05/02/18 08:59 Dose: 20 mg Ceftriaxone Sodium 1 gm/ (Sodium Chloride) 100 mls @ 200 mls/hr IVPB Q24HR PENDING SALE TO [facility] Last Admin: 05/01/18 21:19 Dose: 100 mls Lisinopril (Zestril) 2.5 mg PO DAILY PENDING SALE TO [facility] Last Admin: 05/02/18 08:58 Dose: 2.5 mg Potassium Chloride (Slow-K 8 Meq) 8 meq PO QAM-WM PENDING SALE TO [facility] Last Admin: 05/02/18 08:59 Dose: 8 meq Sodium Chloride (Flush - Normal Saline) 10 ml IVF Q12HR PENDING SALE TO [facility] Last Admin: 05/02/18 09:00 Dose: 10 ml Sodium Chloride (Flush - Normal Saline) 10 ml IVF PRN PRN PRN Reason: Saline Flush Tramadol HCl (Ultram) 50 mg PO Q6H PRN PRN Reason: Pain
[2018-05-02 12:00] VITALS: TEMP 97.8
[2018-05-02 12:10] VITALS: BP 130/67
--- NOTE | 2018-05-02 17:17 | DIS ---
DATE OF ADMISSION: 05/01/2018 DATE OF DISCHARGE: 05/02/2018 DISCHARGE DISPOSITION: Inpatient rehab at [facility]. DISCHARGE DIAGNOSES: 1. Urinary tract infection. 2. Metabolic encephalopathy secondary to #1. 3. Chronic atrial fibrillation, rate controlled. 4. Fall prior to presentation. 5. History of recent coronary artery bypass graft x2. 6. Moderate aortic and mitral regurgitation. 7. Coronary artery disease. 8. Chronic systolic congestive heart failure, stage C. 9. History of breast cancer. 10. Osteoporosis. DISCHARGE MEDICATION: 1. Omnicef 300 mg p.o. b.i.d. for 5 more days. 2. Coreg 6.25 mg p.o. b.i.d. Dose has been increased from 3.125 p.o. t.i.d. 3. Lisinopril 2.5 mg daily. Resume home medications as follows: 1. Aspirin 81 mg daily. 2. Lasix 20 mg daily. 3. Potassium chloride 8 mEq daily. 4. Amiodarone 200 mg p.o. b.i.d. 5. Eliquis 5 mg p.o. b.i.d. 6. Pepcid 20 mg p.o. b.i.d. 7. Lipitor 40 mg daily. 8. Tramadol p.r.n. PROCEDURES DONE IN THE HOSPITAL: 1. CT scan of the brain, cervical spine, lumbar spine x-ray, shoulder x-ray and hip x-ray. No acute abnormality. No fractures. No acute infarctions or hemorrhage in the brain. 2. Chest x-ray upon presentation, which did not have any infiltrates. HISTORY OF PRESENTING ILLNESS: Ms. Shaffer is a pleasant 72-year-old female who was recently admitted to our facility and underwent coronary artery bypass graft and was discharged to rehab at [facility] back after she sustained a fall there. 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 She underwent thrombectomy of the right middle cerebral artery thrombus. During this hospitalization upon presentation, she was found to have a urinary tract infection and resultant metabolic encephalopathy. She was started on appropriate IV antibiotics and was admitted for further evaluation. Initially, under observation status. Cardiology was consulted with regard to recent coronary artery bypass graft. Please see admission history and physical for further details. HOSPITAL COURSE: The patient did very well throughout the rest of her hospitalization. Her mentation cleared to her baseline. She continued to work with OT, PT. Her urine culture came back positive for Klebsiella, which was largely pansensitive, but intermediate to nitrofurantoin. She and her family expressed wishes to go to a different rehab facility which delayed her discharge. Eventually [facility] excepted the patient and she will be discharged to rehab today. Cardiology was consulted as the patient went into atrial fibrillation with RVR. She was briefly treated with Cardizem and Dr. Shea saw the patient. She was eventually transitioned to increased dose of carvedilol and Cardizem drip was stopped. Dr. Biswas also saw the patient while in the hospital for Dr. Ashton and started her on low-dose lisinopril. These medications help with blood pressure and heart rate control. She was seen and examined prior to discharge. Please see hospitalist progress note from today's date for further detail including [id number] interaction. Job ID: [id number]
== END 2018-05-02 16:38 | DRG 689 ==
LOC: ERS 20:35 → 2SW 04-29 01:42 → OBSVTOIN 05-01 13:17 → 2SE 05-01 15:32
PROVIDERS: ADMIT Internal Medicine; ATTEND Internal Medicine
DX: N39.0 Urinary tract infection, site not specified (principal); G93.41 Metabolic encephalopathy; I50.22 Chronic systolic (congestive) heart failure; I11.0 Hypertensive heart disease with heart failure; I25.2 Old myocardial infarction; I25.10 Atherosclerotic heart disease of native coronary artery without angina pectoris; I08.0 Rheumatic disorders of both mitral and aortic valves; M81.0 Age-related osteoporosis without current pathological fracture; I48.2 Chronic atrial fibrillation; B96.1 Klebsiella pneumoniae [K. pneumoniae] as the cause of diseases classified elsewhere; Z85.3 Personal history of malignant neoplasm of breast; Z95.1 Presence of aortocoronary bypass graft; Z98.890 Other specified postprocedural states; Z86.73 Personal history of transient ischemic attack (TIA), and cerebral infarction without residual deficits; Z98.41 Cataract extraction status, right eye; Z90.11 Acquired absence of right breast and nipple; Z90.49 Acquired absence of other specified parts of digestive tract; Z90.710 Acquired absence of both cervix and uterus; Z90.89 Acquired absence of other organs; Z88.1 Allergy status to other antibiotic agents; Z88.2 Allergy status to sulfonamides; Z88.8 Allergy status to other drugs, medicaments and biological substances; Z91.041 Radiographic dye allergy status
CPT/HCPCS: 36415; 70450; 71045; 72100; 72125; 80053; 81003; 81015; 82553; 84484; 85025; 87077; 87086; 87186; 93005; 96365; J0696; J7050

== ENCOUNTER 2018-10-07 20:33 | Inpatient (IN) | payer MEDICARE ==
[2018-10-07 21:27] LABS: #Basophils 0.1 thou/uL (0.0-0.2); #Eosinphils 0.1 thou/uL (0.0-0.7); #Lymphocytes 1.3 thou/uL (1.20-3.40); #Monocytes 0.5 thou/uL (0.11-0.59); #Neutrophils 4.7 thou/uL (1.40-6.50); %Basophils 1.2 % (0.0-1.0); %Eosinophils 1.5 % (0.0-10.0); %Lymphocytes 19.4 % (21.0-51.0); %Monocytes 7.3 % (0.0-10.0); %Neutrophils 70.5 % (42.0-75.0); Hemoglobin 11.1 g/dL (12.0-16.0); Mean Corpuscular HGB CONC 32.8 g/dL (32.0-36.0); Mean Corpuscular Hemoglobin 31.5 pg (27.0-31.0); Mean Platelet Volume 8.1 fL (7.4-10.4); Platelet Count 224 thou/uL (130-400); RBC Distribution Width 13.2 % (11.5-14.5); Red Blood Cell (RBC) Count 3.52 mill/uL (4.20-5.40); White Blood Cell (WBC) Count 6.6 thou/uL (4.8-10.8)
--- NOTE | 2018-10-07 21:40 | RAD ---
Exam: Chest one view HISTORY:Chest pain Comparison: 04/28/2018 FINDINGS: Cardiac silhouette:Cardiomegaly. Sternotomy wires are noted Pulmonary vessels: Prominent Costophrenic angles: Bilateral pleural effusions. LUNGS: Chronic changes with interstitial prominence as well as bibasilar interstitial and alveolar op acities. There is hyperinflation. Pneumothorax: None Osseous abnormalities: None Stable clips in the right axilla and a radiopaque cylindrical appearing device in the left axilla IMPRESSION: 1. Congestive heart failure. 2. Superimposed bibasilar pneumonia or atelectasis cannot be excluded. Continued surveillance to ensu re resolution is recommended.
[2018-10-07 21:55] LABS: ALT (SGPT) 48 U/L (8-55); AST (SGOT) 60 U/L (5-34); Albumin 3.7 g/dL (3.4-4.8); Alkaline Phosphatase 102 U/L (40-150); Anion Gap 15 mmol/L (10-20); BUN (Urea Nitrogen) 15 mg/dL (9.8-20.1); Bilirubin, Total 0.4 mg/dL (0.2-1.2); Calc. Creatinine Clearance 0 mL/min (70-130); Calcium 8.6 mg/dL (7.8-10.44); Carbon Dioxide 23 mmol/L (23-31); Chloride 109 mmol/L (98-107); Estimated GFR-MDRD 63; Globulin 2.1 g/dL (2.4-3.5); Glucose 103 mg/dL (83-110); Potassium 3.7 mmol/L (3.5-5.1); Protein, Total 5.8 g/dL (6.0-8.3); Sodium 143 mmol/L (136-145)
[2018-10-07] MEDS ORDERED: Furosemide 100 MG/10 ML VIAL ONE (22:43)
[2018-10-07] MEDS ORDERED: Nitroglycerin 2% Ointment 1 INCH/1 GM Packet ONE (22:43)
[2018-10-08] MEDS ORDERED: Bisacodyl 10 MG SUPP PR PRN (02:43)
[2018-10-08] MEDS ORDERED: Acetaminophen 325 MG TAB PO PRN (02:43)
[2018-10-08] MEDS ORDERED: Senokot S 8.6-50 MG TAB PO PRN (02:43)
[2018-10-08] MEDS ORDERED: Guaifenesin DM 100-10/5 ML UDCUP PO PRN (02:43)
--- NOTE | 2018-10-08 04:08 | HP ---
REASON FOR ADMISSION: CHF exacerbation, chest pain. HISTORY OF PRESENTING ILLNESS: The patient gives history of progressive shortness of breath with palpitation off and on from last 2 weeks or so. She states she started having very low energy and her gait was unsteady. She could not ambulate much. She normally ambulates by herself. She is currently living in [facility]. No complaints of cough or expectoration. No complaints of urinary frequency or urgency. PAST MEDICAL AND SURGICAL HISTORY: History of coronary artery disease with CABG done in April of this year, history of stage IV breast cancer, history of congestive heart failure with prior EF of around 40%, history of CVA with thrombectomy done, right mastectomy, right cataract surgery, MediPort placement, appendectomy, hysterectomy, tonsillectomy, thrombectomy of the left middle cerebral artery this year. CURRENT MEDICATIONS: 1. Amiodarone 200 mg p.o. daily. 2. Eliquis 5 mg twice daily. 3. Atorvastatin 40 mg p.o. at bedtime. 4. Lisinopril 2.5 mg p.o. daily. 5. K-Dur 8 mEq p.o. twice daily. 6. Zoloft 50 mg p.o. daily. 7. Carvedilol 6.25 mg p.o. twice daily. 8. Lasix 20 mg p.o. daily. ALLERGIES: TO ADHESIVE, ASPIRIN, ERYTHROMYCIN, IODINE, MEPERIDINE, NICOTINE, OXYCODONE, SULFA, AND VANCOMYCIN. PERSONAL HISTORY: Does not abuse alcohol or drugs. No history of smoking. She is currently a resident of [facility]. FAMILY HISTORY: Mother lived up to 90 years and of natural causes. Father at the age of 57 years, he has had history of coronary artery disease. CODE STATUS: Full. Power of deputy county attorney is her son, Will Treviño. REVIEW OF SYSTEMS: CONSTITUTIONAL: Negative for weight loss or gain, ability to conduct usual activities. SKIN: Negative for rash, itching. EYES: Negative for double vision, pain. ENT/MOUTH: Negative for nose bleeding, neck stiffness, pain, tenderness. CARDIOVASCULAR: Negative for palpitations, dyspnea on exertion, orthopnea. RESPIRATORY: Negative for shortness of breath, wheezing, cough, hemoptysis, fever or night sweats. GASTROINTESTINAL: Negative for poor appetite, abdominal pain, heartburn, nausea , vomiting, constipation, or diarrhea. GENITOURINARY: Negative for urgency, frequency, dysuria, nocturia. MUSCULOSKELETAL: Negative for pain, swelling. NEUROLOGIC/PSYCHIATRIC: Negative for anxiety, depression. ALLERGY/IMMUNOLOGIC: Negative for skin rash, bleeding tendency. PHYSICAL EXAMINATION: GENERAL: The patient is a 73-year-old female who is currently not in any acute distress. VITAL SIGNS: Blood pressure 167/106, pulse 106 per minute, respiratory rate 20 per minute, temperature 99.2 degrees Fahrenheit, saturating 94% on room air. NECK: Supple. No elevated JVD. HEENT: Eyes; extraocular muscles intact. Pupils reacting to light. Oral cavity, mucous membranes are moist. No exudates or congestion. CARDIOVASCULAR SYSTEM: S1, S2 heard. Regular rhythm. RESPIRATORY SYSTEM: Air entry 1+ bilateral. Scattered rales in the infrascapular area. ABDOMEN: Soft. Bowel sounds heard. No tenderness, rigidity, or guarding. EXTREMITIES: No peripheral edema or calf tenderness. VASCULAR SYSTEM: Peripheral pulses 1+ bilateral. No ischemic ulcerations or gangrene. CENTRAL NERVOUS SYSTEM: No gross focal deficits noted. The patient is alert, awake, oriented well. PSYCHIATRIC SYSTEM: The patient's mood is euthymic. No hallucinations or delusions. LABORATORY DATA: White count of 6, H and H are 11 and 33, platelet count 224, MCV is 96. Electrolytes stable. BUN 15, creatinine 0.8. Serum glucose 103. AST 60, ALT 48, alkaline phosphatase 102. Troponin I is 0.03. BNP 1378. Albumin is 3.7. Chest x-ray done shows pulmonary vascular congestion. CLINICAL IMPRESSION AND PLAN: The patient will be admitted to telemetry for acute congestive heart failure exacerbation. She has known history of systolic dysfunction with EF of 40% per prior echo done in April. She will be on Lasix 40 mg IV q.12 hourly. We will continue her amiodarone, Eliquis, Lipitor, Coreg, and small dose of lisinopril. We will also continue her Zoloft. Echo with 2D Doppler for current LV function will be obtained. The patient's prior echo was done before her CABG, and we will see if the ejection fraction has improved. The patient had mild temperature of 99 on arrival. She will be closely monitored. She has no expectoration of sputum as such at present. If she persists to have fever or has altered phlegm, she will be placed on antibiotics. We will consult Dr. Ashton, her trouble locater during her stay here. Code status was discussed with her and she is a full code. Job ID: [id number] MTDD
[2018-10-08 04:53] LABS: #Eosinphils 0.1 thou/uL (0.0-0.7); #Lymphocytes 0.9 thou/uL (1.20-3.40); #Monocytes 0.6 thou/uL (0.11-0.59); #Neutrophils 5.2 thou/uL (1.40-6.50); %Basophils 0.7 % (0.0-1.0); %Eosinophils 0.9 % (0.0-10.0); %Lymphocytes 12.9 % (21.0-51.0); %Monocytes 8.7 % (0.0-10.0); %Neutrophils 76.8 % (42.0-75.0); Hemoglobin 12.2 g/dL (12.0-16.0); Mean Corpuscular Hemoglobin 30.9 pg (27.0-31.0); Mean Corpuscular Volume 96.5 fL (78.0-98.0); Mean Platelet Volume 8.6 fL (7.4-10.4); Platelet Count 230 thou/uL (130-400); RBC Distribution Width 13.3 % (11.5-14.5); Red Blood Cell (RBC) Count 3.95 mill/uL (4.20-5.40); White Blood Cell (WBC) Count 6.8 thou/uL (4.8-10.8)
[2018-10-08 05:11] LABS: Anion Gap 16 mmol/L (10-20); BUN (Urea Nitrogen) 14 mg/dL (9.8-20.1); Calc. Creatinine Clearance 40 mL/min (70-130); Calcium 8.9 mg/dL (7.8-10.44); Carbon Dioxide 26 mmol/L (23-31); Chloride 102 mmol/L (98-107); Estimated GFR-MDRD 56; Glucose 109 mg/dL (83-110); Potassium 3.2 mmol/L (3.5-5.1); Sodium 141 mmol/L (136-145)
[2018-10-08] MEDS ORDERED: Diltiazem 125 MG in Sodium Chloride 0.9% 100 ML IVPB SCH (05:30)
[2018-10-08] MEDS ORDERED: Furosemide 40 MG/4 ML VIAL SLOW IVP SCH (06:00)
[2018-10-08] MEDS: Furosemide 20 MG/2 ML VIAL SLOW IVP SCH ×2 (06:22→15:04)
[2018-10-08] MEDS ORDERED: Potassium Chloride 20 MEQ TAB PO SCH ×2 (09:00→17:00)
[2018-10-08] MEDS: Apixaban 5 MG TAB PO SCH ×2 (09:26→20:46)
[2018-10-08] MEDS: Famotidine 20 MG TAB PO SCH ×2 (09:29→20:46)
[2018-10-08] MEDS: Amiodarone 200 MG TAB PO SCH (09:30)
[2018-10-08] MEDS: Lisinopril 2.5 MG TAB PO SCH (10:13)
[2018-10-08] MEDS: Carvedilol 6.25 MG TAB PO SCH ×2 (10:14→16:15)
[2018-10-08] MEDS ORDERED: Spironolactone 25 MG TAB PO SCH (13:30)
--- NOTE | 2018-10-08 16:24 | PRG ---
DATE OF SERVICE: 10/08/2018 SUBJECTIVE: A 73-year-old female with coronary artery disease, congestive heart failure with ejection fraction in 40% range, presented to the hospital with shortness of breath along with chest discomfort from the assisted living facility. Her workup was consistent with congestive heart failure exacerbation. She has been started on IV Lasix. The shortness of breath continues. She denies significant orthopnea or paroxysmal nocturnal dyspnea. She went into atrial fibrillation with rapid ventricular response and was started on Cardizem drip. She is currently in sinus rhythm. REVIEW OF SYSTEMS: The patient denies any syncope or chest discomfort. All other review of systems was reviewed and were found negative. CURRENT MEDICATIONS: Reviewed. The patient is on Cardizem drip, amiodarone, Eliquis, Lipitor, carvedilol, lisinopril, Zoloft. PHYSICAL EXAMINATION: VITAL SIGNS: Temperature 98.4, pulse 81, respirations 16, blood pressure 104/53, O2 saturation 95% on room air. Intake of 400, output 2350, weight of 112 pounds. GENERAL: A 73-year-old female, in no apparent distress. HEENT: Head, atraumatic and normocephalic. Sclerae anicteric. Moist mucous membranes. No oral lesion. NECK: Supple. No JVD appreciated. No carotid bruit. LUNGS: Showed bibasilar rales with scattered rhonchi. No significant accessory muscle use. No heaves or pulsation. ABDOMEN: Soft, nontender. Bowel sounds present. No rebound or guarding. EXTREMITIES: No edema. No calf tenderness. NEUROLOGY: Grossly nonfocal. Moves all 4 extremities. PSYCHIATRY: Alert, awake, and oriented x3. Normal affect. LABORATORY FINDINGS: WBC 6.8 with hemoglobin 12.2. Potassium 3.2 with magnesium 1.9. Troponin of 0.030. BNP 1378. TSH was normal. Chest x-ray by my review showed pulmonary vascular congestion. EKG by my review showed sinus rhythm. She was in atrial fibrillation with rapid ventricular response yesterday. IMPRESSION: 1. Acute on chronic systolic heart failure exacerbation, ACC stage C. 2. Atrial fibrillation with rapid ventricular response, on Cardizem drip and chronic anticoagulation. 3. Hyperlipidemia. 4. Hypertension. 5. Hypokalemia. 6. Depression, mild, stable. 7. Moderate aortic and mitral regurgitation. 8. Coronary artery disease. 9. History of breast cancer. 10. Osteoporosis. 11. Mild chronic anemia. PLAN: The patient will be monitored on telemetry unit. We will continue Cardizem drip along with gentle diuresis. We will replace potassium. Await Cardiology input. Echocardiogram has been ordered. We will consult cardiac rehab. We will consult caseworker intake for senior living facility evaluation. Please note, the patient currently lives in assisted living and is requesting to be moved to a different facility. We will continue FREDDY inhibitor. Plan of care was discussed with the patient in detail. She stated understanding. Job ID: [id number]
--- NOTE | 2018-10-08 18:55 | CON ---
DATE OF CONSULTATION: 10/08/2018 REASON FOR CONSULTATION: Shortness of breath, atrial fibrillation with a rapid ventricular response, and history of bypass surgery. HISTORY OF PRESENT ILLNESS: Ms. Shaffer is a 73-year-old female. She underwent bypass surgery earlier this year. She was brought to the hospital complaining of decreased energy and some shortness of breath, predominantly just had lack of energy, but chest x-ray showed congestive heart failure. She was admitted for evaluation. Also, the BNP was elevated. PAST MEDICAL HISTORY: 1. Bypass surgery earlier this year. 2. Stage IV breast cancer. 3. History of congestive heart failure with ejection fraction previously 40%. 4. History of stroke. MEDICATIONS: 1. Amiodarone 200 mg a day. 2. Eliquis 5 mg twice a day. 3. Atorvastatin 40 mg. 4. Lisinopril 2.5 mg. 5. Potassium. 6. Zoloft. 7. Carvedilol. 8. Lasix. ALLERGIES: TO ASPIRIN, ADHESIVE, IODINE, AND NICOTINE. SOCIAL HISTORY: No alcohol or drug abuse. She is a resident of [facility]. FAMILY HISTORY: Mother lived up to 90 years of age. CODE STATUS: Full. REVIEW OF SYSTEMS: CONSTITUTIONAL: Positive for lack of energy. VISION: No changes. HEARING: No changes. PULMONARY: No cough or wheezing. GASTROINTESTINAL: No nausea, vomiting, or diarrhea. SKIN: No rashes. NEUROLOGIC: No unilateral weakness or numbness. PSYCHIATRIC: No unusual depression or anxiety. PHYSICAL EXAMINATION: GENERAL: This is a pleasant 73-year-old woman, looks somewhat frail. She is 5 feet 5 inches tall, 112 pounds. VITAL SIGNS: Blood pressure 104/53, pulse 80, it is currently regular. EYES: Sclerae nonicteric. Mouth, mucous membranes moist. NECK: Supple. No lymphadenopathy. LUNGS: Clear. CARDIAC: Normal S1, normal S2. There is no murmur, rub, or gallop. ABDOMEN: Soft and nontender. No hepatosplenomegaly. EXTREMITIES: Warm, dry. No clubbing or cyanosis. There is no edema. PERTINENT LABORATORY DATA: The potassium is 3.2. BNP is 1378, troponin 0.23. EKG, now shows sinus rhythm, but she does have intermittent paroxysmal atrial fibrillation with a rapid ventricular response. She did have heart rates of about 140 beats to 150 beats per minute. Averaging with when she went into atrial fibrillation. Chest x-ray looks like there is pulmonary vascular congestion. ASSESSMENT: 1. Previous bypass surgery earlier this year. 2. Congestive heart failure, likely systolic acute on chronic, based on increased BNP and chest x-ray. 3. Paroxysmal atrial fibrillation with a rapid rate despite amiodarone. PLAN: 1. Repeat echocardiogram. 2. Consideration for atrial fibrillation ablation should be given in view of her recurrent fibrillation despite amiodarone. 3. We will give a diuretic therapy. We will follow with you. Job ID: [id number]
[2018-10-08] MEDS ORDERED: Atorvastatin Calcium 40 MG TAB PO SCH (21:00)
[2018-10-09 05:47] LABS: Albumin 3.6 g/dL (3.4-4.8); Anion Gap 13 mmol/L (10-20); BUN (Urea Nitrogen) 20 mg/dL (9.8-20.1); BUN/Creatinine Ratio 19.42; Calc. Creatinine Clearance 38 mL/min (70-130); Calcium 9.1 mg/dL (7.8-10.44); Carbon Dioxide 29 mmol/L (23-31); Chloride 100 mmol/L (98-107); Estimated GFR-MDRD 52; Glucose 88 mg/dL (83-110); Magnesium 1.9 mg/dL (1.6-2.6); Phosphorus 4.8 mg/dL (2.3-4.7); Potassium 3.2 mmol/L (3.5-5.1); Sodium 139 mmol/L (136-145)
[2018-10-09] MEDS: Furosemide 20 MG/2 ML VIAL SLOW IVP SCH ×2 (06:12→13:20)
[2018-10-09] MEDS: Apixaban 5 MG TAB PO SCH ×2 (10:11→21:30)
[2018-10-09] MEDS: Famotidine 20 MG TAB PO SCH (10:12)
[2018-10-09] MEDS: Amiodarone 200 MG TAB PO SCH (10:12)
[2018-10-09] MEDS: Lisinopril 2.5 MG TAB PO SCH (10:13)
[2018-10-09] MEDS: Carvedilol 6.25 MG TAB PO SCH ×2 (10:14→17:17)
[2018-10-09] MEDS: Spironolactone 25 MG TAB PO SCH (10:23)
--- NOTE | 2018-10-09 20:58 | PRG ---
DATE OF SERVICE: 10/09/2018 SUBJECTIVE: A 73-year-old female with coronary artery disease, chronic systolic heart failure, presented to the hospital with shortness of breath. Her workup was consistent with congestive heart failure exacerbation along with atrial fibrillation with rapid ventricular response. She was placed on Cardizem drip, which was discontinued yesterday. Shortness of breath is improving with IV Lasix. She denies any chest pain or palpitations. She gets short of breath on mild exertion. No fever or chills reported. REVIEW OF SYSTEM: No nausea, vomiting, or focal deficit. OBJECTIVE: VITAL SIGNS: Temperature 97.7, pulse 91, respirations 18, blood pressure 122/56, O2 saturation 95% on room air. GENERAL: 73-year-old female, in no apparent distress at rest. LUNGS: Diminished air entry at bilateral bases. HEART: S1, S2 present. Regular rate and rhythm. ABDOMEN: Soft, nontender. Bowel sounds present. EXTREMITIES: No edema or calf tenderness. NEUROLOGIC: Grossly nonfocal. Intake of 870, output 2250. Weight of 112 pounds. CURRENT MEDICATIONS: Reviewed. The patient is on 1. Amiodarone. 2. Eliquis. 3. Lipitor. 4. Carvedilol. 5. Pepcid IV 20 mg. 6. Lasix b.i.d. 7. Lisinopril. 8. Zoloft. 9. Aldactone. 10. Potassium supplementation. Telemetry monitoring by my review showed sinus rhythm. LAB FINDINGS: Potassium 3.2 with magnesium 1.9, creatinine 1.03. IMPRESSION: 1. Acute on chronic systolic heart failure exacerbation, improving. 2. Atrial fibrillation with rapid ventricular response. The patient is currently in sinus rhythm, off Cardizem drip. 3. Chronic anticoagulation. 4. Hypertension. 5. Coronary artery disease, status post coronary artery bypass grafting. 6. Hypokalemia. 7. Depression, mild, stable. 8. Hyperlipidemia. 9. Moderate aortic and mitral regurgitation. 10. History of breast cancer. 11. Osteoporosis. 12. Mild chronic anemia. PLAN: We will continue IV Lasix at current dose. We will continue all other home medications including amiodarone, Eliquis, lisinopril. Aldactone has been started this admission. We will recheck basic metabolic profile in a.m. We will continue cardiac rehabilitation. pmo manager is working on [facility] facility placement. DISPOSITION: Probably in 24-48 hours if okay with Cardiology. Echocardiogram is pending at this time. Job ID: [id number]
[2018-10-09] MEDS: Atorvastatin Calcium 10 MG TAB PO SCH (21:30)
[2018-10-10 05:25] LABS: Hemoglobin 12.1 g/dL (12.0-16.0); Platelet Count 257 thou/uL (130-400)
[2018-10-10 05:44] LABS: Anion Gap 13 mmol/L (10-20); BUN (Urea Nitrogen) 18 mg/dL (9.8-20.1); Calc. Creatinine Clearance 39 mL/min (70-130); Calcium 8.9 mg/dL (7.8-10.44); Carbon Dioxide 28 mmol/L (23-31); Chloride 100 mmol/L (98-107); Estimated GFR-MDRD 54; Glucose 93 mg/dL (83-110); Potassium 3.9 mmol/L (3.5-5.1); Sodium 137 mmol/L (136-145)
[2018-10-10] MEDS: Furosemide 20 MG/2 ML VIAL SLOW IVP SCH ×2 (06:22→15:11)
[2018-10-10] MEDS: Lisinopril 2.5 MG TAB PO SCH (08:52)
[2018-10-10] MEDS: Apixaban 5 MG TAB PO SCH (08:52)
[2018-10-10] MEDS: Carvedilol 6.25 MG TAB PO SCH ×2 (08:53→16:43)
[2018-10-10] MEDS: Amiodarone 200 MG TAB PO SCH (08:53)
[2018-10-10] MEDS: Famotidine 20 MG TAB PO SCH (08:53)
[2018-10-10] MEDS: Spironolactone 25 MG TAB PO SCH (08:54)
--- NOTE | 2018-10-10 09:54 | PRG ---
DATE OF SERVICE: 10/10/2018 SUBJECTIVE: Ms. Shaffer is feeling better. Her breathing has improved. OBJECTIVE: VITAL SIGNS: Her blood pressure is 116/59, pulse is 72. LUNGS: Clear. CARDIAC: Normal S1, normal S2. ABDOMEN: Soft, nontender. DIAGNOSTIC DATA: Echocardiogram revealed ejection fraction of 30% to 35%, moderate to severe mitral regurgitation. LABORATORY DATA: Potassium level is 3.9, creatinine is 1.0. ASSESSMENT: 1. Congestive heart failure, systolic, acute on chronic, improved. 2. Paroxysmal atrial fibrillation. 3. Previous bypass surgery. 4. Gisjocas-ic-umwnzq mitral regurgitation. PLAN: 1. Increase carvedilol to 12.5 mg twice a day. 2. Increase lisinopril to 5 mg a day. 3. Continue aspirin and apixaban. 4. Discussed with the issue of defibrillator implantation with the patient. Her ejection fraction is just below 35%. Discussed the options of adjusting medicines and rechecking in a few months versus proceeding to a defibrillator implantation at the present time. She does not wish to pursue defibrillator implantation at the present time. The patient is making arrangements about where she will live when she leaves. From my standpoint, most likely will be ready to be discharged tomorrow. Job ID: [id number]
--- NOTE | 2018-10-10 14:19 | PRG ---
DATE OF SERVICE: 10/10/2018 SUBJECTIVE: A 73-year-old female with coronary artery disease, chronic systolic heart failure, presented to the hospital with congestive heart failure exacerbation along with atrial fibrillation with rapid ventricular response. Cardizem drip has been discontinued. She continues to be on IV Lasix. Symptoms are improving. She did well with cardiac rehab today. No chest pain or palpitations reported. REVIEW OF SYSTEMS: No nausea, vomiting, or change in appetite reported. CURRENT MEDICATIONS: Reviewed. The patient is on: 1. Amiodarone. 2. Eliquis. 3. Lipitor. 4. Carvedilol 12.5 twice a day. 5. Lasix. 6. Lisinopril 5 mg daily. 7. Zoloft. 8. Aldactone. PHYSICAL EXAMINATION: VITAL SIGNS: Temperature 98.3, respirations 18, pulse 76, blood pressure 102/53, and O2 saturation 98% on room air. Weight is 111 pounds. Intake 634, output 3054. GENERAL: A 73-year-old female, in no apparent distress at rest. LUNGS: Showed few rales at bases with scattered rhonchi. HEART: S1 and S2 present and regular. ABDOMEN: Soft and nontender. Bowel sounds present. EXTREMITIES: No edema or calf tenderness. NEUROLOGIC: Grossly nonfocal. LABORATORY FINDINGS: Echocardiogram showed ejection fraction 30% to 35% with bxlyfhhe-ye-afevzu mitral regurgitation. Telemetry monitoring by my review showed sinus rhythm. Potassium 3.9, BUN 18, and creatinine 1.0. IMPRESSION: 1. Acute on chronic systolic heart failure exacerbation. Ejection fraction 30% to 35%. 2. Atrial fibrillation with rapid ventricular response. The patient converted to sinus rhythm. She is off Cardizem drip. 3. Chronic anticoagulation with Eliquis. 4. Hypertension. 5. Coronary artery disease, status post coronary artery bypass grafting. 6. Hypokalemia, replaced. 7. Hyperlipidemia. 8. Moderate aortic and mitral regurgitation. 9. Osteoporosis. 10. Mild chronic anemia. 11. History of breast cancer. 12. Depression, mild, stable. 13. Elevated troponin secondary to demand ischemia/type 2 myocardial infarction. 14. Slightly abnormal LFTs secondary to passive hepatic congestion. Job ID: [id number]
[2018-10-10] MEDS: Atorvastatin Calcium 10 MG TAB PO SCH (20:56)
[2018-10-10 22:11] VITALS: TEMP 97.7
[2018-10-11] MEDS: Furosemide 20 MG/2 ML VIAL SLOW IVP SCH (06:16)
[2018-10-11 06:19] LABS: Anion Gap 11 mmol/L (10-20); BUN (Urea Nitrogen) 20 mg/dL (9.8-20.1); Calc. Creatinine Clearance 40 mL/min (70-130); Calcium 9.3 mg/dL (7.8-10.44); Carbon Dioxide 29 mmol/L (23-31); Chloride 99 mmol/L (98-107); Estimated GFR-MDRD 57; Glucose 92 mg/dL (83-110); Potassium 3.3 mmol/L (3.5-5.1); Sodium 136 mmol/L (136-145)
[2018-10-11] MEDS: Famotidine 20 MG TAB PO SCH (08:58)
[2018-10-11] MEDS: Spironolactone 25 MG TAB PO SCH (08:58)
[2018-10-11] MEDS: Amiodarone 200 MG TAB PO SCH (08:59)
[2018-10-11] MEDS: Carvedilol 6.25 MG TAB PO SCH (08:59)
[2018-10-11] MEDS ORDERED: Lisinopril 2.5 MG TAB PO SCH (09:00)
[2018-10-11] MEDS ORDERED: Apixaban 5 MG TAB PO SCH (09:00)
[2018-10-11] MEDS ORDERED: Lisinopril 5 MG TAB PO SCH (09:00)
--- NOTE | 2018-10-11 09:27 | PRG ---
DATE OF SERVICE: 10/11/2018 SUBJECTIVE: Ms. Shaffer is breathing better. She feels better. Her main concern is about her status at the long term. She is not happy with her living arrangements there she says. She also describes a lot of family difficulties. The patient, as mentioned, however, is breathing better. OBJECTIVE: VITAL SIGNS: Her blood pressure is 109/58 and pulse 67 and sinus. LUNGS: Clear. CARDIAC: Normal S1, normal S2. ASSESSMENT: 1. Congestive heart failure, systolic, clinically improved. 2. Previous bypass surgery. 3. Paroxysmal atrial fibrillation. 4. Ejection fraction is 30% to 35%. PLAN: 1. The Coreg dose has been increased to 12.5 mg twice a day. 2. She is on spironolactone 25 mg a day. 3. Back on apixaban 5 mg twice a day. 4. Amiodarone. 5. Lisinopril dose was increased to 5 mg a day. 6. I had a discussion again with the patient about the defibrillator implantation. The patient may see some improvement in her left ventricular function. I discussed the options with the patient. She wishes to delay defibrillator implantation at this point. I reassess her in the office. Job ID: [id number]
[2018-10-11 11:39] VITALS: BP 97/52
[2018-10-11 13:23] VITALS: BMI 18.3
--- NOTE | 2018-10-11 14:54 | DIS ---
DATE OF ADMISSION: 10/07/2018 DATE OF DISCHARGE: 10/11/2018 DISCHARGE DISPOSITION: Assisted Living Facility. FOLLOWUP: 1. Follow up with primary care physician, Dr. Danielle uBckley in 1 week. 2. Follow up with Cardiology, Dr. Ashton as scheduled. 3. Basic metabolic profile after 1 week is recommended. Primary care physician advised to follow. The patient was seen and examined on the day of discharge. Denies any new complaints. No chest pain, shortness of breath, or palpitations reported. DISCHARGE MEDICATIONS: 1. Amiodarone 200 mg daily. 2. Eliquis 5 mg b.i.d. 3. Lipitor 40 mg at bedtime. 4. Zoloft 50 mg daily. 5. Carvedilol 12.5 mg b.i.d. 6. Lasix 20 mg daily. 7. Lisinopril 5 mg daily. 8. Aldactone 25 mg daily. INPATIENT WELLNESS SPA MANAGER: Cardiology, Dr. Ashton. BRIEF HOSPITAL COURSE: The patient is a 73-year-old female with coronary artery disease, chronic systolic heart failure, hypertension, and hyperlipidemia, presented to the hospital on October 08, 2018 with shortness of breath. A workup was consistent with acute on chronic systolic heart failure. Echocardiogram showed ejection fraction 30% to 35% with cthoegue-jp-wmoqhq mitral regurgitation, aiyu-gw-glpwcjmn aortic insufficiency. She showed good improvement with diuretics. Her weight on the day of discharge is 109 pounds. She was extensively counseled on fluid restriction. During this hospitalization, the patient converted to atrial fibrillation with rapid ventricular response, requiring Cardizem drip. She spontaneously converted back to sinus rhythm. Cardizem drip has been discontinued. Carvedilol dose has been increased. She has been cleared by Cardiology for discharge. FINAL DIAGNOSES: 1. Acute on chronic systolic heart failure exacerbation. The patient will discuss with Dr. Ashton as outpatient regarding LifeVest. 2. Atrial fibrillation with rapid ventricular response, converted to sinus rhythm. The patient required Cardizem drip during this admission. 3. Hypertension. 4. Coronary artery disease status post coronary artery bypass grafting. 5. Chronic anticoagulation with Eliquis. 6. Hypokalemia, replaced. 7. Hyperlipidemia. 8. Oqevoshe-ko-sehdfh mitral regurgitation. 9. Lzmx-ke-wrkvrkcj aortic insufficiency. 10. Osteoporosis. 11. Mild chronic anemia. 12. History of breast cancer. 13. Depression, mild, stable. 14. Elevated troponin secondary to demand ischemia/type 2 myocardial infarction. 15. Slightly abnormal liver function tests secondary to passive hepatic congestion. TIME SPENT WITH PATIENT: Total time coordinating the discharge of this patient was 37 minutes. Job ID: [id number]
--- NOTE | 2018-10-13 12:45 | EKG ---
Test Reason : Blood Pressure : / mmHG Vent. Rate : 113 BPM Atrial Rate : 113 BPM P-R Int : 166 ms QRS Dur : 084 ms QT Int : 346 ms P-R-T Axes : 085 -46 076 degrees QTc Int : 474 ms Sinus tachycardia Possible Left atrial enlargement Left axis deviation Left ventricular hypertrophy Anteroseptal infarct , age undetermined Abnormal ECG No changes from 04/28/2018 Confirmed by MOHAN JACOBO DO ([id number]), editor news JOANN GOMEZ ([id number]) on 10/13/2018 12:45:02 PM Referred By: Confirmed By:MOHAN JACOBO DO
== END 2018-10-11 16:19 | DRG 282 ==
LOC: ERS 20:33 → 2NO 23:00
PROVIDERS: ADMIT Internal Medicine; ATTEND Internal Medicine
DX: I11.0 Hypertensive heart disease with heart failure (principal); I21.A1 Myocardial infarction type 2; E78.5 Hyperlipidemia, unspecified; I50.23 Acute on chronic systolic (congestive) heart failure; K21.9 Gastro-esophageal reflux disease without esophagitis; I25.10 Atherosclerotic heart disease of native coronary artery without angina pectoris; F03.90 Unspecified dementia, unspecified severity, without behavioral disturbance, psychotic disturbance, mood disturbance, and anxiety; I48.0 Paroxysmal atrial fibrillation; E87.6 Hypokalemia; F32.9 Major depressive disorder, single episode, unspecified; I08.0 Rheumatic disorders of both mitral and aortic valves; M81.0 Age-related osteoporosis without current pathological fracture; D64.9 Anemia, unspecified; K76.1 Chronic passive congestion of liver; Z90.49 Acquired absence of other specified parts of digestive tract; Z90.710 Acquired absence of both cervix and uterus; Z95.1 Presence of aortocoronary bypass graft; Z88.8 Allergy status to other drugs, medicaments and biological substances; Z88.2 Allergy status to sulfonamides; Z88.1 Allergy status to other antibiotic agents; Z79.01 Long term (current) use of anticoagulants; Z79.899 Other long term (current) drug therapy; Z85.3 Personal history of malignant neoplasm of breast
CPT/HCPCS: 36415; 71045; 80048; 80053; 80069; 83735; 83880; 84443; 84484; 85014; 85018; 85025; 85049; 93005; 93306; 93798; 96374; J1940; J3490

== ENCOUNTER 2018-10-25 15:14 | Emergency (ER) | payer MEDICARE ==
[2018-10-25 15:51] LABS: #Basophils 0.1 thou/uL (0.0-0.2); #Eosinphils 0.1 thou/uL (0.0-0.7); #Monocytes 0.6 thou/uL (0.11-0.59); #Neutrophils 7.5 thou/uL (1.40-6.50); %Basophils 0.8 % (0.0-1.0); %Eosinophils 0.8 % (0.0-10.0); %Lymphocytes 10.4 % (21.0-51.0); %Monocytes 6.8 % (0.0-10.0); %Neutrophils 81.3 % (42.0-75.0); Hemoglobin 11.6 g/dL (12.0-16.0); Mean Corpuscular HGB CONC 33.3 g/dL (32.0-36.0); Mean Corpuscular Hemoglobin 31.6 pg (27.0-31.0); Mean Corpuscular Volume 94.8 fL (78.0-98.0); Mean Platelet Volume 8.3 fL (7.4-10.4); Platelet Count 232 thou/uL (130-400); RBC Distribution Width 12.3 % (11.5-14.5); Red Blood Cell (RBC) Count 3.68 mill/uL (4.20-5.40); White Blood Cell (WBC) Count 9.2 thou/uL (4.8-10.8)
--- NOTE | 2018-10-25 15:51 | RAD ---
EXAM: Single view of the chest HISTORY: Chest pain COMPARISON: 10/07/2018 FINDINGS: Single view of the chest shows an enlarged but stable cardiomediastinal silhouette. The pa tient is status post CABG. There is no evidence of consolidation, mass, or pleural effusion. The bones are unremarkable. IMPRESSION: Cardiomegaly without evidence of acute cardiopulmonary disease
[2018-10-25] MEDS ORDERED: Ketorolac Tromethamine 30 MG/ML VIAL ONE (16:09)
[2018-10-25 17:21] LABS: ALT (SGPT) 44 U/L (8-55); AST (SGOT) 59 U/L (5-34); Albumin 3.8 g/dL (3.4-4.8); Alkaline Phosphatase 157 U/L (40-150); Anion Gap 18 mmol/L (10-20); BUN (Urea Nitrogen) 12 mg/dL (9.8-20.1); Bilirubin, Total 0.4 mg/dL (0.2-1.2); Calc. Creatinine Clearance 0 mL/min (70-130); Calcium 9.1 mg/dL (7.8-10.44); Carbon Dioxide 26 mmol/L (23-31); Chloride 100 mmol/L (98-107); Estimated GFR-MDRD 57; Globulin 3.4 g/dL (2.4-3.5); Glucose 105 mg/dL (83-110); Potassium 3.5 mmol/L (3.5-5.1); Protein, Total 7.2 g/dL (6.0-8.3); Sodium 140 mmol/L (136-145)
[2018-10-25] MEDS ORDERED: Potassium Chloride 20 MEQ TAB ONE (17:29)
--- NOTE | 2018-10-25 17:48 | NM ---
NUCLEAR MEDICINE VENTILATION PERFUSION SCAN: (V/Q SCAN) 10/25/18 HISTORY: 73-year-old female with chest pain. TECHNIQUE: Xenon-133 gas dose: 15.9 millicuries. [id number] dose: 6.3 millicuries. The patient inhaled Xenon-133 gas, and dynamic ventilation scintigraphy was performed. [id number] was injected IV, and multiple perfusion scintigraphic views were obtained. FINDINGS: There are no moderate-sized or large perfusion defects. There are no significant ventilation/perfusi on mismatches. There are numerous tiny peripheral bilateral matching VQ defects, which may be related to COPD. IMPRESSION: Low probability for pulmonary thromboembolism. jn [] POS: CET
== END 2018-10-25 19:04 ==
LOC: ERS 15:14
DX: R07.9 Chest pain, unspecified (principal); E87.6 Hypokalemia; E78.5 Hyperlipidemia, unspecified; K21.9 Gastro-esophageal reflux disease without esophagitis; I25.10 Atherosclerotic heart disease of native coronary artery without angina pectoris; I11.0 Hypertensive heart disease with heart failure; I50.9 Heart failure, unspecified; I25.2 Old myocardial infarction; D64.9 Anemia, unspecified; Z79.899 Other long term (current) drug therapy; Z79.01 Long term (current) use of anticoagulants
CPT/HCPCS: 71045; 78582; 80053; 83735; 83880; 84484; 85025; 85379; 93005; 96374; 99285; A9540; A9558; J1885